=== PATIENT | female | born 1965 | race Caucasian/White ===

== ENCOUNTER → 2019-07-03 | Outpatient (CLI) | payer MEDICARE, OTHER | LOC: WOUNDCARE 08:05 | PROVIDERS: ATTEND Nurse Practitioner | DX: E11.622 Type 2 diabetes mellitus with other skin ulcer (principal); L97.222 Non-pressure chronic ulcer of left calf with fat layer exposed; I87.2 Venous insufficiency (chronic) (peripheral); Z87.09 Personal history of other diseases of the respiratory system; Z87.39 Personal history of other diseases of the musculoskeletal system and connective tissue | CPT/HCPCS: 99204 ==

== ENCOUNTER → 2019-07-10 | Outpatient (CLI) | payer MEDICARE, OTHER | LOC: WOUNDCARE 08:36 | PROVIDERS: ATTEND Nurse Practitioner | DX: L97.222 Non-pressure chronic ulcer of left calf with fat layer exposed (principal); E11.622 Type 2 diabetes mellitus with other skin ulcer; I87.2 Venous insufficiency (chronic) (peripheral); E11.52 Type 2 diabetes mellitus with diabetic peripheral angiopathy with gangrene; I96 Gangrene, not elsewhere classified | CPT/HCPCS: 11042 ==

== ENCOUNTER → 2019-07-19 | Outpatient (CLI) | payer MEDICARE, OTHER | LOC: WOUNDCARE 09:50 | PROVIDERS: ATTEND Nurse Practitioner | DX: L97.222 Non-pressure chronic ulcer of left calf with fat layer exposed (principal); E11.622 Type 2 diabetes mellitus with other skin ulcer; E11.52 Type 2 diabetes mellitus with diabetic peripheral angiopathy with gangrene; I96 Gangrene, not elsewhere classified; I87.2 Venous insufficiency (chronic) (peripheral) | CPT/HCPCS: 11042 ==

== ENCOUNTER → 2019-07-26 | Outpatient (CLI) | payer MEDICARE, OTHER | LOC: WOUNDCARE 09:24 | PROVIDERS: ATTEND Nurse Practitioner | DX: E11.622 Type 2 diabetes mellitus with other skin ulcer (principal); E11.52 Type 2 diabetes mellitus with diabetic peripheral angiopathy with gangrene; L97.222 Non-pressure chronic ulcer of left calf with fat layer exposed; I96 Gangrene, not elsewhere classified; I87.2 Venous insufficiency (chronic) (peripheral) | CPT/HCPCS: 29581 ==

== ENCOUNTER → 2019-08-02 | Outpatient (CLI) | payer MEDICARE, OTHER | LOC: WOUNDCARE 07:55 | PROVIDERS: ATTEND Nurse Practitioner | DX: E11.622 Type 2 diabetes mellitus with other skin ulcer (principal); L97.222 Non-pressure chronic ulcer of left calf with fat layer exposed; I87.2 Venous insufficiency (chronic) (peripheral); E11.52 Type 2 diabetes mellitus with diabetic peripheral angiopathy with gangrene; I96 Gangrene, not elsewhere classified | CPT/HCPCS: 29581 ==

== ENCOUNTER → 2019-08-09 | Outpatient (CLI) | payer MEDICARE, OTHER | LOC: WOUNDCARE 08:00 | PROVIDERS: ATTEND Nurse Practitioner | DX: E11.622 Type 2 diabetes mellitus with other skin ulcer (principal); L97.222 Non-pressure chronic ulcer of left calf with fat layer exposed; I87.2 Venous insufficiency (chronic) (peripheral) | CPT/HCPCS: 99212 ==

== ENCOUNTER → 2019-08-16 | Outpatient (CLI) | payer MEDICARE, OTHER | LOC: WOUNDCARE 08:05 | PROVIDERS: ATTEND Surgery | DX: E11.622 Type 2 diabetes mellitus with other skin ulcer (principal); L97.222 Non-pressure chronic ulcer of left calf with fat layer exposed; I87.2 Venous insufficiency (chronic) (peripheral) | CPT/HCPCS: 99212 ==

== ENCOUNTER → 2019-09-04 | Outpatient (CLI) | payer MEDICARE, OTHER | LOC: WOUNDCARE 10:01 | PROVIDERS: ATTEND Nurse Practitioner | DX: E11.622 Type 2 diabetes mellitus with other skin ulcer (principal); E11.52 Type 2 diabetes mellitus with diabetic peripheral angiopathy with gangrene; I96 Gangrene, not elsewhere classified; L97.222 Non-pressure chronic ulcer of left calf with fat layer exposed; I87.2 Venous insufficiency (chronic) (peripheral) | CPT/HCPCS: 99212 ==

== ENCOUNTER → 2019-09-11 | Outpatient (CLI) | payer MEDICARE, OTHER | LOC: WOUNDCARE 10:36 | PROVIDERS: ATTEND Nurse Practitioner | DX: E11.622 Type 2 diabetes mellitus with other skin ulcer (principal); L97.222 Non-pressure chronic ulcer of left calf with fat layer exposed; I87.2 Venous insufficiency (chronic) (peripheral); E11.52 Type 2 diabetes mellitus with diabetic peripheral angiopathy with gangrene | CPT/HCPCS: 99213 ==

== ENCOUNTER → 2019-09-18 | Outpatient (CLI) | payer MEDICARE, OTHER | LOC: WOUNDCARE 10:17 | PROVIDERS: ATTEND Nurse Practitioner | DX: E11.622 Type 2 diabetes mellitus with other skin ulcer (principal); L97.222 Non-pressure chronic ulcer of left calf with fat layer exposed; I87.2 Venous insufficiency (chronic) (peripheral) | CPT/HCPCS: 99212 ==

== ENCOUNTER → 2020-01-09 | Outpatient (CLI) | payer MEDICARE, OTHER | LOC: WOUNDCARE 08:06 | PROVIDERS: ATTEND Orthopaedic Surgery Hand Surgery | DX: E11.622 Type 2 diabetes mellitus with other skin ulcer (principal); E11.65 Type 2 diabetes mellitus with hyperglycemia; L97.212 Non-pressure chronic ulcer of right calf with fat layer exposed; L97.221 Non-pressure chronic ulcer of left calf limited to breakdown of skin; I87.311 Chronic venous hypertension (idiopathic) with ulcer of right lower extremity; I87.312 Chronic venous hypertension (idiopathic) with ulcer of left lower extremity; J44.9 Chronic obstructive pulmonary disease, unspecified; Z79.52 Long term (current) use of systemic steroids | CPT/HCPCS: 11042 ==

== ENCOUNTER → 2020-01-16 | Outpatient (CLI) | payer MEDICARE, OTHER | LOC: WOUNDCARE 08:09 | PROVIDERS: ATTEND Orthopaedic Surgery Hand Surgery | DX: L97.212 Non-pressure chronic ulcer of right calf with fat layer exposed (principal); L97.222 Non-pressure chronic ulcer of left calf with fat layer exposed; I87.333 Chronic venous hypertension (idiopathic) with ulcer and inflammation of bilateral lower extremity; E11.621 Type 2 diabetes mellitus with foot ulcer; E11.52 Type 2 diabetes mellitus with diabetic peripheral angiopathy with gangrene; J44.9 Chronic obstructive pulmonary disease, unspecified; E11.65 Type 2 diabetes mellitus with hyperglycemia; Z79.52 Long term (current) use of systemic steroids | CPT/HCPCS: 11042; 87070; 87077; 87186; 87205 ==

== ENCOUNTER → 2020-01-23 | Outpatient (CLI) | payer MEDICARE, OTHER | LOC: WOUNDCARE 09:38 | PROVIDERS: ATTEND Surgery | DX: L97.212 Non-pressure chronic ulcer of right calf with fat layer exposed (principal); L97.222 Non-pressure chronic ulcer of left calf with fat layer exposed; I87.333 Chronic venous hypertension (idiopathic) with ulcer and inflammation of bilateral lower extremity; E11.622 Type 2 diabetes mellitus with other skin ulcer; J44.9 Chronic obstructive pulmonary disease, unspecified; E11.52 Type 2 diabetes mellitus with diabetic peripheral angiopathy with gangrene; Z79.52 Long term (current) use of systemic steroids | CPT/HCPCS: 11042 ==

== ENCOUNTER → 2020-01-30 | Outpatient (CLI) | payer MEDICARE, OTHER | LOC: WOUNDCARE 09:37 | PROVIDERS: ATTEND Surgery | DX: L97.212 Non-pressure chronic ulcer of right calf with fat layer exposed (principal); I87.331 Chronic venous hypertension (idiopathic) with ulcer and inflammation of right lower extremity; E11.622 Type 2 diabetes mellitus with other skin ulcer; J44.9 Chronic obstructive pulmonary disease, unspecified; E11.52 Type 2 diabetes mellitus with diabetic peripheral angiopathy with gangrene; Z79.52 Long term (current) use of systemic steroids | CPT/HCPCS: 11042 ==

== ENCOUNTER → 2020-02-06 | Outpatient (CLI) | payer MEDICARE, OTHER ==
[~2020-02-06] VITALS: Ht 157 cm; Wt 88.0 kg
[~2020-02-06] MED LIST: CATHETER FLUSH 10 ML SYR IV PRN; REGADENOSON 0.4 MG/5 ML SYR (LEXISCAN) IV ONE
--- NOTE | 2020-02-06 15:33 | STRESS TEST ---
DATE OF SERVICE: 02/06/2020 LEXISCAN MYOVIEW STRESS TEST REPORT REFERRING PHYSICIAN: Dr. Ramos. Baseline heart rate is 77, baseline blood pressure 109/72. Baseline EKG is sinus rhythm with no ischemic changes. In summary, the patient was injected with 10.2 mCi of technetium-99 Myoview and the resting images were obtained. Then, the patient received 0.4 mg of Lexiscan followed by 32.5 mCi of technetium-99 Myoview. Throughout the test, there were no EKG changes. The resting and stress images were reviewed and compared in the short axis, horizontal long axis, and vertical long axis views. Review of the images showed breast attenuation with mild decreased uptake involving the mid anterior wall and anterolateral wall with mild reversibility. SSS is 6, SDS 6, TID value 0.88. On the gated images, the left ventricle appeared to be normal size with normal contractility. Calculated ejection fraction 62%. CONCLUSION: 1. The patient tolerated Lexiscan well. 2. Breast attenuation with mild decreased uptake at the mid anterior wall and anterolateral wall with mild reversibility, no significant ischemia was noted. 3. Normal left ventricular size with normal contractility. Calculated ejection fraction 62%. Job ID: [id number] DocumentID: [id number] Dictated Date: 02/06/2020 14:29:37 Pecan Cleaner Date: 02/06/2020 15:32:47 Dictated By: MARTIR BURTON MD
== END ==
LOC: CARD 08:35
PROVIDERS: ATTEND Internal Medicine Cardiovascular Disease
DX: R07.9 Chest pain, unspecified (principal); I10 Essential (primary) hypertension; E78.2 Mixed hyperlipidemia; E11.42 Type 2 diabetes mellitus with diabetic polyneuropathy
CPT/HCPCS: 78452; 93017; 93306

== ENCOUNTER → 2020-02-06 | Outpatient (CLI) | payer MEDICARE, OTHER | LOC: WOUNDCARE 11:28 | PROVIDERS: ATTEND Surgery | DX: E11.622 Type 2 diabetes mellitus with other skin ulcer (principal); L97.212 Non-pressure chronic ulcer of right calf with fat layer exposed; I87.333 Chronic venous hypertension (idiopathic) with ulcer and inflammation of bilateral lower extremity; J44.9 Chronic obstructive pulmonary disease, unspecified; Z79.52 Long term (current) use of systemic steroids | CPT/HCPCS: 99212 ==

== ENCOUNTER → 2020-04-15 | Outpatient (CLI) | payer MEDICARE, OTHER | LOC: WOUNDCARE 13:16 | PROVIDERS: ATTEND Surgery | DX: E11.622 Type 2 diabetes mellitus with other skin ulcer (principal); L97.222 Non-pressure chronic ulcer of left calf with fat layer exposed; L95.8 Other vasculitis limited to the skin; E11.65 Type 2 diabetes mellitus with hyperglycemia; I87.332 Chronic venous hypertension (idiopathic) with ulcer and inflammation of left lower extremity; J44.9 Chronic obstructive pulmonary disease, unspecified; G47.30 Sleep apnea, unspecified; E11.40 Type 2 diabetes mellitus with diabetic neuropathy, unspecified; M17.11 Unilateral primary osteoarthritis, right knee; Z88.0 Allergy status to penicillin; Z88.5 Allergy status to narcotic agent; Z91.048 Other nonmedicinal substance allergy status; Z88.8 Allergy status to other drugs, medicaments and biological substances; Z87.891 Personal history of nicotine dependence; Z79.4 Long term (current) use of insulin | CPT/HCPCS: 99214 ==

== ENCOUNTER → 2020-04-22 | Outpatient (CLI) | payer MEDICARE, OTHER | LOC: WOUNDCARE 08:17 | PROVIDERS: ATTEND Surgery | DX: L95.8 Other vasculitis limited to the skin (principal); L97.222 Non-pressure chronic ulcer of left calf with fat layer exposed; E11.622 Type 2 diabetes mellitus with other skin ulcer; E11.65 Type 2 diabetes mellitus with hyperglycemia; I87.332 Chronic venous hypertension (idiopathic) with ulcer and inflammation of left lower extremity; J44.9 Chronic obstructive pulmonary disease, unspecified; E11.52 Type 2 diabetes mellitus with diabetic peripheral angiopathy with gangrene | CPT/HCPCS: 11042 ==

== ENCOUNTER → 2020-04-29 | Outpatient (CLI) | payer MEDICARE, OTHER | LOC: WOUNDCARE 09:00 | PROVIDERS: ATTEND Surgery | DX: L97.222 Non-pressure chronic ulcer of left calf with fat layer exposed (principal); L95.8 Other vasculitis limited to the skin; E11.622 Type 2 diabetes mellitus with other skin ulcer; E11.65 Type 2 diabetes mellitus with hyperglycemia; E11.52 Type 2 diabetes mellitus with diabetic peripheral angiopathy with gangrene; I87.332 Chronic venous hypertension (idiopathic) with ulcer and inflammation of left lower extremity; J44.9 Chronic obstructive pulmonary disease, unspecified | CPT/HCPCS: 11042 ==

== ENCOUNTER → 2020-05-05 | Outpatient (CLI) | payer MEDICARE, OTHER | LOC: WOUNDCARE 08:30 | PROVIDERS: ATTEND Surgery | DX: E11.622 Type 2 diabetes mellitus with other skin ulcer (principal); E11.52 Type 2 diabetes mellitus with diabetic peripheral angiopathy with gangrene; E11.65 Type 2 diabetes mellitus with hyperglycemia; I87.332 Chronic venous hypertension (idiopathic) with ulcer and inflammation of left lower extremity; I96 Gangrene, not elsewhere classified; L97.222 Non-pressure chronic ulcer of left calf with fat layer exposed; L95.8 Other vasculitis limited to the skin; J44.9 Chronic obstructive pulmonary disease, unspecified | CPT/HCPCS: 11042; A6260 ==

== ENCOUNTER → 2020-05-15 | Outpatient (CLI) | payer MEDICARE, OTHER | LOC: WOUNDCARE 10:06 | PROVIDERS: ATTEND Surgery | DX: E11.622 Type 2 diabetes mellitus with other skin ulcer (principal); E11.65 Type 2 diabetes mellitus with hyperglycemia; E11.52 Type 2 diabetes mellitus with diabetic peripheral angiopathy with gangrene; I96 Gangrene, not elsewhere classified; L97.222 Non-pressure chronic ulcer of left calf with fat layer exposed; I87.332 Chronic venous hypertension (idiopathic) with ulcer and inflammation of left lower extremity; L95.8 Other vasculitis limited to the skin | CPT/HCPCS: 11042 ==

== ENCOUNTER → 2020-05-21 | Outpatient (CLI) | payer MEDICARE, OTHER | LOC: WOUNDCARE 12:47 | PROVIDERS: ATTEND Surgery | DX: L97.222 Non-pressure chronic ulcer of left calf with fat layer exposed (principal); L95.8 Other vasculitis limited to the skin; E11.622 Type 2 diabetes mellitus with other skin ulcer; E11.65 Type 2 diabetes mellitus with hyperglycemia; E11.52 Type 2 diabetes mellitus with diabetic peripheral angiopathy with gangrene; J44.9 Chronic obstructive pulmonary disease, unspecified; I87.332 Chronic venous hypertension (idiopathic) with ulcer and inflammation of left lower extremity | CPT/HCPCS: 11042; A4649 ==

== ENCOUNTER → 2020-05-26 | Outpatient (CLI) | payer MEDICARE, OTHER | LOC: WOUNDCARE 08:06 | PROVIDERS: ATTEND Surgery | DX: L97.222 Non-pressure chronic ulcer of left calf with fat layer exposed (principal); E11.622 Type 2 diabetes mellitus with other skin ulcer; E11.65 Type 2 diabetes mellitus with hyperglycemia; I87.332 Chronic venous hypertension (idiopathic) with ulcer and inflammation of left lower extremity; J44.9 Chronic obstructive pulmonary disease, unspecified; L95.8 Other vasculitis limited to the skin; E11.52 Type 2 diabetes mellitus with diabetic peripheral angiopathy with gangrene | CPT/HCPCS: 11042 ==

== ENCOUNTER → 2020-06-02 | Outpatient (CLI) | payer MEDICARE, OTHER | LOC: WOUNDCARE 08:10 | PROVIDERS: ATTEND Surgery | DX: E11.621 Type 2 diabetes mellitus with foot ulcer (principal); E11.52 Type 2 diabetes mellitus with diabetic peripheral angiopathy with gangrene; E11.622 Type 2 diabetes mellitus with other skin ulcer; E11.65 Type 2 diabetes mellitus with hyperglycemia; I87.332 Chronic venous hypertension (idiopathic) with ulcer and inflammation of left lower extremity; J44.9 Chronic obstructive pulmonary disease, unspecified; L97.222 Non-pressure chronic ulcer of left calf with fat layer exposed; L97.522 Non-pressure chronic ulcer of other part of left foot with fat layer exposed; L95.8 Other vasculitis limited to the skin | CPT/HCPCS: 11042; A6196 ==

== ENCOUNTER → 2020-06-09 | Outpatient (CLI) | payer MEDICARE, OTHER | LOC: WOUNDCARE 08:07 | PROVIDERS: ATTEND Surgery | DX: E11.621 Type 2 diabetes mellitus with foot ulcer (principal); E11.622 Type 2 diabetes mellitus with other skin ulcer; E11.65 Type 2 diabetes mellitus with hyperglycemia; E11.52 Type 2 diabetes mellitus with diabetic peripheral angiopathy with gangrene; I96 Gangrene, not elsewhere classified; L97.522 Non-pressure chronic ulcer of other part of left foot with fat layer exposed; L97.222 Non-pressure chronic ulcer of left calf with fat layer exposed; I87.332 Chronic venous hypertension (idiopathic) with ulcer and inflammation of left lower extremity; L95.8 Other vasculitis limited to the skin; J44.9 Chronic obstructive pulmonary disease, unspecified | CPT/HCPCS: 11042 ==

== ENCOUNTER → 2020-06-17 | Outpatient (CLI) | payer MEDICARE, OTHER | LOC: WOUNDCARE 08:30 | PROVIDERS: ATTEND Surgery | DX: L97.522 Non-pressure chronic ulcer of other part of left foot with fat layer exposed (principal); E11.621 Type 2 diabetes mellitus with foot ulcer; E11.52 Type 2 diabetes mellitus with diabetic peripheral angiopathy with gangrene; L95.9 Vasculitis limited to the skin, unspecified; L97.222 Non-pressure chronic ulcer of left calf with fat layer exposed; E11.622 Type 2 diabetes mellitus with other skin ulcer; E11.65 Type 2 diabetes mellitus with hyperglycemia; I87.322 Chronic venous hypertension (idiopathic) with inflammation of left lower extremity; J44.9 Chronic obstructive pulmonary disease, unspecified | CPT/HCPCS: 11042; G0463 ==

== ENCOUNTER → 2020-06-24 | Outpatient (CLI) | payer MEDICARE, OTHER ==
--- NOTE | 2020-06-24 15:07 | Diagnostic Imaging Report ---
INDICATION: Abscess right foot. TIME OF EXAM: 11:54 AM. COMPARISON: No prior studies are available for comparison. FINDINGS: Bunion deformity of the great toe is noted. There are severe degenerative changes at the tarsometatarsal joints. There appears to be some fragmentation with bony destructive changes involving the medial, middle, and lateral cuneiforms. No discrete fracture is identified. There is abnormal widening of the 5th MTP joint. There may be post surgical changes of partial resection of the distal 5th metatarsal. No soft tissue gas is identified. A chronic appearing deformity of the proximal phalanx of the 3rd toe is noted. IMPRESSION: Significant chronic changes to the right foot, particularly the tarsometatarsal joints. This could be owing to neuropathic changes. No soft tissue gas is identified. Dictated by: Dictated on workstation # [id number]
== END ==
LOC: RAD 11:16
PROVIDERS: ATTEND Surgery
DX: M65.071 Abscess of tendon sheath, right ankle and foot (principal); L97.415 Non-pressure chronic ulcer of right heel and midfoot with muscle involvement without evidence of necrosis; L97.522 Non-pressure chronic ulcer of other part of left foot with fat layer exposed; E11.621 Type 2 diabetes mellitus with foot ulcer; L95.8 Other vasculitis limited to the skin; L97.222 Non-pressure chronic ulcer of left calf with fat layer exposed; E11.622 Type 2 diabetes mellitus with other skin ulcer; E11.65 Type 2 diabetes mellitus with hyperglycemia; I87.332 Chronic venous hypertension (idiopathic) with ulcer and inflammation of left lower extremity; J44.9 Chronic obstructive pulmonary disease, unspecified; I70.234 Atherosclerosis of native arteries of right leg with ulceration of heel and midfoot
CPT/HCPCS: 73630

== ENCOUNTER → 2020-06-24 | Outpatient (CLI) | payer MEDICARE, OTHER | LOC: WOUNDCARE 08:52 | PROVIDERS: ATTEND Surgery | DX: E11.621 Type 2 diabetes mellitus with foot ulcer (principal); E11.622 Type 2 diabetes mellitus with other skin ulcer; L97.222 Non-pressure chronic ulcer of left calf with fat layer exposed; E11.65 Type 2 diabetes mellitus with hyperglycemia; I87.332 Chronic venous hypertension (idiopathic) with ulcer and inflammation of left lower extremity; L97.415 Non-pressure chronic ulcer of right heel and midfoot with muscle involvement without evidence of necrosis; L97.521 Non-pressure chronic ulcer of other part of left foot limited to breakdown of skin; L97.221 Non-pressure chronic ulcer of left calf limited to breakdown of skin; J44.9 Chronic obstructive pulmonary disease, unspecified; L95.9 Vasculitis limited to the skin, unspecified; M65.071 Abscess of tendon sheath, right ankle and foot; Z87.891 Personal history of nicotine dependence; G47.30 Sleep apnea, unspecified; M17.11 Unilateral primary osteoarthritis, right knee; Z79.4 Long term (current) use of insulin; Z96.659 Presence of unspecified artificial knee joint | CPT/HCPCS: 10060; 11042; 87070; 87075; 87077; 87186; 87205; 97597; G0463 ==

== ENCOUNTER → 2020-07-01 | Outpatient (CLI) | payer MEDICARE, OTHER | LOC: WOUNDCARE 09:11 | PROVIDERS: ATTEND Surgery | DX: E11.621 Type 2 diabetes mellitus with foot ulcer (principal); E11.52 Type 2 diabetes mellitus with diabetic peripheral angiopathy with gangrene; E11.622 Type 2 diabetes mellitus with other skin ulcer; E11.65 Type 2 diabetes mellitus with hyperglycemia; L97.522 Non-pressure chronic ulcer of other part of left foot with fat layer exposed; I96 Gangrene, not elsewhere classified; L97.413 Non-pressure chronic ulcer of right heel and midfoot with necrosis of muscle; L97.222 Non-pressure chronic ulcer of left calf with fat layer exposed; M65.071 Abscess of tendon sheath, right ankle and foot; L95.8 Other vasculitis limited to the skin; I87.332 Chronic venous hypertension (idiopathic) with ulcer and inflammation of left lower extremity; J44.9 Chronic obstructive pulmonary disease, unspecified | CPT/HCPCS: 11042; A6196; G0463 ==

== ENCOUNTER → 2020-07-08 | Outpatient (CLI) | payer MEDICARE, OTHER | LOC: WOUNDCARE 08:44 | PROVIDERS: ATTEND Surgery | DX: M65.071 Abscess of tendon sheath, right ankle and foot (principal); L97.413 Non-pressure chronic ulcer of right heel and midfoot with necrosis of muscle; E11.621 Type 2 diabetes mellitus with foot ulcer; L95.8 Other vasculitis limited to the skin; I87.322 Chronic venous hypertension (idiopathic) with inflammation of left lower extremity; J44.9 Chronic obstructive pulmonary disease, unspecified; E11.52 Type 2 diabetes mellitus with diabetic peripheral angiopathy with gangrene | CPT/HCPCS: 11042; G0463 ==

== ENCOUNTER → 2020-07-15 | Outpatient (CLI) | payer MEDICARE, OTHER | LOC: WOUNDCARE 08:39 | PROVIDERS: ATTEND Surgery | DX: E11.621 Type 2 diabetes mellitus with foot ulcer (principal); L97.413 Non-pressure chronic ulcer of right heel and midfoot with necrosis of muscle; L97.522 Non-pressure chronic ulcer of other part of left foot with fat layer exposed; L95.8 Other vasculitis limited to the skin; I87.322 Chronic venous hypertension (idiopathic) with inflammation of left lower extremity; L97.221 Non-pressure chronic ulcer of left calf limited to breakdown of skin; M65.071 Abscess of tendon sheath, right ankle and foot; J44.9 Chronic obstructive pulmonary disease, unspecified; L03.116 Cellulitis of left lower limb; E11.52 Type 2 diabetes mellitus with diabetic peripheral angiopathy with gangrene | CPT/HCPCS: 11042; 11043; 97597; G0463 ==

== ENCOUNTER 2020-08-26 11:43 | Inpatient (IN) | payer MEDICARE, OTHER ==
[~2020-08-26] VITALS: Ht 160 cm; Wt 72.0 kg
[2020-08-26] MEDS ORDERED: MELATONIN 3 MG TABLET PO PRN (12:45)
[2020-08-26] MEDS ORDERED: BISACODYL 10 MG SUPP (DULCOLAX) PR PRN (12:45)
[2020-08-26] MEDS ORDERED: LACTULOSE SYRUP 10GM/15ML (ENULOSE) 30ML UDC PO PRN (12:45)
[2020-08-26] MEDS ORDERED: DOCUSATE SODIUM 100 MG (COLACE) CAP PO PRN (12:45)
[2020-08-26] MEDS ORDERED: guaiFENesin/CODEINE (ROBITUSSIN AC) 10ML UDC PO PRN (12:45)
[2020-08-26] MEDS ORDERED: FLEET ENEMA ADULT 1 EA BTL PR PRN (12:45)
[2020-08-26] MEDS ORDERED: ACETAMINOPHEN 500 MG TAB (TYLENOL) PO PRN (12:45)
[2020-08-26] MEDS ORDERED: LOPERAMIDE 2 MG (IMODIUM) TABLET PO PRN ×2 (12:45→17:00)
[2020-08-26] MEDS ORDERED: CALCIUM CARBONATE 500 MG (TUMS) TAB.CHEW PO PRN (12:45)
[2020-08-26] MEDS ORDERED: ALPRAZolam 0.25 MG (XANAX) TAB PO PRN (12:45)
[2020-08-26] MEDS ORDERED: diphenhydrAMINE 25 MG TAB (BENADRYL) PO PRN (12:45)
--- NOTE | 2020-08-26 14:00 | NUR ---
Nika Cole admitted to room , with an admitting diagnosis of Disuse Myopathy, on 08/26/2020 from [place] via private vehicle, accompanied by staff.NIKA COLE introduced to surroundings, call light, bed controls, phone, TV, temperature control, lights, meal times, smoking policy, visitor policy, side rail policy, bathrooms and showers. Patient Rights given to patient in the handbook.NIKA COLE verbalizes understanding that [facility] is not responsible for the loss or damage to any personal effects or valuables that are kept in the patients possession during their hospitalization. The following Patient Care Plans were discussed with the patient: Discharge Planning, Disuse Myopathy, risk for falls. NIKA COLE verbalizes understanding of Interdisciplinary Patient Education. Patient and/or family were informed about the Rapid Response Team and its purpose. Patient received Patient Rights Booklet, which includes Privacy Act Statement and Data Collection Information Summary.
--- NOTE | 2020-08-26 14:50 | PM&R Post Admission Assessment ---
PM&R HP Date of Visit: Aug 26, 2020 Time of Visit: 17:45 History of Present Illness CC: Discitis HPI: This is a 55yoWF clinic patient of Dr Ramos who presents to IRF in need of recovery and rehabilitation following a very long course in the hospital which started at [facility] then to [facility] then to [place]. PLOF was functioning independently living with her . She has struggled with chronic back pain but it worsened and eventually led to septic shock with MSSA with MEGAN suspicious for infective endocarditis and MRI revealed osteomyelitis L2-L3 and presumed source of right foot chronic diabetic wound managed by Dr Snyder. Severe nausea has limited her dietary consumption and delayed arrival to IRF by 1 day but improved with Compazine but Dr Eid was consulted in case nausea becomes a major issue and he can perform EGD and any other modality which could help her recovery. HPI: Patient is a 55yo female presenting to IRF from a 25-day stay at [facility] due to requiring IV antibiotics secondary to osteomyelitis and possible infective endocarditis. She was originally transferred to [facility] from [facility] on 07/18 due to sepsis with septic shock and was found to have infection with MSSA. A MEGAN was performed which was inconclusive but raised concerns for possible infective endocarditis. She c/o acute on chronic back pain and was eventually found to have osteomyelitis of L2-L3 with discitis on MRI. She was then transferred to [facility] to continue receiving IV antibiotics and for rehabilitation. She has been completing her course of cefazolin and rifampin. Prior to admission she lived independently at home with her spouse. She was independent with ADLs including bed mobility, transfers, walking, and household functions. Past Medical History: COPD IDDM Atrial fibrillation s/p ablation 2000 HTN HLD Migraines MARY ANN uses CPAP Asthma Arthritis Anxiety Depression GERD Hx of L leg DVT Surgical History: Appendectomy Bladder cyst removal Cardiac ablation Cholecystectomy Right breast needle biopsy Umbilical hernia repair Total abdominal hysterectomy Left knee arthroplasty Right lung biopsy Issac fundoplication Tubal ligation Bunionectomy Social History: , lives with spouse Former smoker; 35 pack year hx, quit 3-5 years ago Denies alcohol use Allergies: Clindamycin, PCN, gabapentin, hydromorphone, moxifloxacin, ofloxacin, metformin, morphine, topiramate, Wellbutrin, zileuton Medications: Albuterol-ipratropium 2.5-0.5mg/3mL - 3mL q4R Alendronate 70mg TAB x1 tab MON Aripiprazole 5mg TAB x1 tab HS Brimonidine 0.2% SOLN 0.1mL daily Budesonide 0.5mg/2mL INH - 2mL BID Calcium carbonate 600mg TAB x2 tab daily Clobetasol 0.05% cream 30g x1 application HS Diclofenac topical 1% gel 1 application BID Fenofibrate 54mg TAB x1 daily Fentanyl patch 50mcg/hr - Q72H Fluticasone nasal 50mcg/INH - BID Furosemide 20mg TAB x2 daily Insulin [id number] units/mL INJ 14 units ACHS Lactobacillus acidophilus oral TAB 2 units TID LANTUS INSULIN 100 units/mL - 5 units HS Latanoprost 0.005% opthalmic SOLN - 0.125mL HS Lisinopril 5mg TAB x1 daily Magnesium oxide 400mg TAB x2 TID Meloxicam 7.5mg TAB x2 daily Mirtazipine 15mg TAB x1 tab HS Montelukast 10mg TAB x1 tab HS Multivitamin with minerals TAB x1 units daily Pantoprazole ER 40mg TAB x1 tab daily Paroxetine 10mg TAB x4 daily Pentoxifylline ER 400mg TAB x1 tab TID Potassium chloride 10mEq tab x3 tab daily Prednisone 10mg TAB x3 tab daily Pregabalin 100mg CAP x1 cap BID Spironolactone 25mg TAB x2 tab BID Tiotropium inhalation 18mcg CAP x1 daily Topiramate 25mg TAB x2 tab daily Vitamin D 1000 units TAB x2 tab daily Acetaminophen 325mg TAB x2 tab Q6H PRN Alprazolam 0.5mg TAB x2 tab QID PRN Hydrocodone-acetaminophen 10mg-325mg TAB x1 tab Q4H PRN Loperamide 2mg CAP x1 cap Q4H PRN Ondansetron 4mg TAB x1 tab Q6H PRN Quetiapine 25mg TAB x1 tab BID PRN Physical Exam: General: WD/WN, no acute distress HEENT: normocephalic, atraumatic, EOMI Heart: RRR, S1 S2 normal Lungs: CTAB, no accessory muscle use Abdomen: soft, nontender, nondistended Neuro/Psych: alert, oriented x3, normal mood/affect Assessment: Disuse myopathy Acute on chronic back pain Arthritis HTN HLD T2DM COPD REHAB/MEDICAL ASSESSMENT AND PLAN: ETIOLOGIC DIAGNOSIS: Osteomyelitis of L2-L3 The comorbidities that impact the patients function and/or functional outcome by: requiring IV antibiotics, chronic back pain Rehab treatment will consist of: PT, OT will focus on regaining activity tolerance, functional strength, safety, balance, gait, transfer, bed mobility BARRIERS TO DISCHARGE: Chronic back pain, requiring IV antibiotics ESTIMATED LOS: 14 DISPOSITION: Home PROGNOSIS: Fair REHABILITATION GOALS: 1. PT OT will focus on regaining strength and ambulatory ability in order to return home to live independently Verification and Attestation Supervisory-Addendum Brief VINICIO SUMNER,POOJA STUDENT Past [id number] Hx Past Med/Social Hx: Reviewed Nursing Past Med/Soc Hx, Reviewed and Corrections made Patient Social History Marrital Status: Employed/Student: unemployed Alcohol Use: Denies Use Smoking Status: Never a Smoker Recent Foreign Travel: No Contact w/other who traveled: No Past Medical History Respiratory: Sleep Apnea hypoxia O2 dependent Cardiac: Hypertension Musculoskeletal: Arthritis, Chronic Back Pain Endocrine: Diabetes, Insulin dep PM&R Allergy/Meds/Data Review Allergies Coded Allergies: Penicillins (Unverified Allergy, Unknown, 02/06/20) Tetracyclines (Unverified Allergy, Unknown, 02/06/20) adhesive tape (Unverified Allergy, Unknown, 02/06/20) gabapentin (Unverified Allergy, Unknown, 02/06/20) morphine (Unverified Allergy, Unknown, PT TAKES LORTAB AT HOME, 08/26/20) Home Medications Scheduled Alendronate Sodium (Alendronate Sodium), 70 MG PO DAILY, (Reported) Aripiprazole (Aripiprazole), 5 MG PO HS, (Reported) Brimonidine Tartrate (Alphagan P), 1 DROP OU DAILY, (Reported) Budesonide (Pulmicort), 0.5 MG IH BID, (Reported) Calcium Carbonate (Calcium Carbonate), 1,200 MG PO DAILY, (Reported) Calcium Carbonate (Antacid Maximum Strength), 400 MG PO DAILY, (Reported) Cefazolin Sodium (Cefazolin Sodium), 2 GM IV Q8H, (Reported) Cetirizine HCl (Zyrtec), 10 MG PO DAILY, (Reported) Cholecalciferol (Vitamin D3) (Vitamin D3), 50 MCG PO DAILY, (Reported) Clobetasol Propionate (Clobetasol Propionate), 1 APPFUL TP HS, (Reported) Diclofenac Sodium (Voltaren Arthritis Pain), 1 APPLIC TP BID, (Reported) Enoxaparin Sodium (Lovenox), 40 MG SQ DAILY, (Reported) Fenofibrate (Fenofibrate), 54 MG PO DAILY, (Reported) Fentanyl (Fentanyl Patch 50 MCG), 50 MCG TD Q72H, (Reported) Fluconazole (Fluconazole), 100 MG PO Q72H, (Reported) Fluticasone Propionate (Flonase Allergy Relief), 2 SPRAY NS BID, (Reported) Furosemide (Furosemide), 40 MG PO DAILY, (Reported) Insulin Glargine,Hum.rec.anlog (Lantus), 5 UNIT SQ HS, (Reported) Insulin Lispro (Insulin Lispro), 0-14 UNIT SQ ACHS, (Reported) Ipratropium/Albuterol Sulfate (Iprat-Albut 0.5-3(2.5) mg/3 ml), 3 ML IH BID, (Reported) Lactobacillus Acidophilus/Pect (Acidophilus-Pectin Capsule), 2 EACH PO TID, (Reported) Latanoprost (Latanoprost), 1 DROP OU HS, (Reported) Lisinopril (Lisinopril), 5 MG PO DAILY, (Reported) Meloxicam (Meloxicam), 15 MG PO DAILY, (Reported) Mirtazapine (Mirtazapine), 15 MG PO HS, (Reported) Montelukast Sodium (Montelukast Sodium), 10 MG PO HS, (Reported) Multivits,Ca,Minerals/Iron/FA (Thera-M Tablet), 1 EACH PO DAILY, (Reported) Pantoprazole Sodium (Pantoprazole Sodium), 40 MG PO DAILY, (Reported) Paroxetine HCl (Paroxetine HCl), 40 MG PO 1000, (Reported) Pentoxifylline (Pentoxifylline), 400 MG PO TID, (Reported) Potassium Chloride (Klor-Con M20), 40 MEQ PO Q6H, (Reported) Prednisone (Prednisone), 20 MG PO DAILY, (Reported) Pregabalin (Lyrica), 100 MG PO BID, (Reported) Quetiapine Fumarate (Quetiapine Fumarate), 25 MG PO BID, (Reported) Rifampin (Rifampin), 300 MG PO Q8H, (Reported) Sodium Chloride (Saline Nasal [place]), 1 SPRAY NSEACH BID, (Reported) Spironolactone (Aldactone), 25 MG PO BID, (Reported) Tiotropium [place]ary (Spiriva), 1 INH IH DAILY, (Reported) Topiramate (Topamax), 50 MG PO DAILY, (Reported) Scheduled PRN Acetaminophen (Tylenol Arthritis), 650 MG PO Q6H PRN for PAIN-MILD (1-4) OR TEMPATURE, (Reported) Alprazolam (Alprazolam), 1 MG PO QID PRN for ANXIETY, (Reported) Alteplase (Cathflo Activase), 2 MG BC PRN PRN for CLOGGED PICC, (Reported) Dextrose 50 % in Water (Dextrose 50%-Water Syringe), 50 ML IV PRN PRN for BLOOD GLUCOSE LESS THEN 50, (Reported) Hydrocodone/Acetaminophen ([place] 10-325 Tablet), 1 TAB PO Q4H PRN for PAIN- SEVERE (8-10), (Reported) Ipratropium/Albuterol Sulfate (Iprat-Albut 0.5-3(2.5) mg/3 ml), 3 ML IH Q4H PRN for SHORTNESS OF BREATH, (Reported) Loperamide HCl (Loperamide), 2 MG PO Q4H PRN for LOOSE STOOLS, (Reported) Prochlorperazine Maleate (Compazine), 10 MG PO Q6H PRN for NAUSEA/VOMITING-1ST LINE, (Reported) Discontinued Medications Albuterol/Ipratropium (Combivent Respimat Inhal [place]), 2 PUFF IH BID Discontinued Reason: No Longer Taking Alendronate Sodium (Fosamax), 70 MG PO WEEK, (Reported) Discontinued Reason: Duplicate Order Aripiprazole (Abilify), 5 MG PO HS Discontinued Reason: Duplicate Order Brimonidine/Dorzolamide/Pf (Brimonidine 0.15%-Dorzolam 2%), 10 ML OP DAILY Discontinued Reason: Duplicate Order Budesonide (Budesonide), 0.5 MG IH BID Discontinued Reason: Duplicate Order Calcium Carbonate (Calcium), 600 MG PO DAILY Discontinued Reason: No Longer Taking Naproxen (Naproxen), 500 MG PO BID PRN for PAIN-MODERATE (5-7), (Reported) Discontinued Reason: No Longer Taking Ondansetron (Ondansetron Odt), 4 MG PO, (Reported) Discontinued Reason: No Longer Taking Current Medications Current Medications Reviewed Review of Systems Constitutional: see HPI, malaise, weakness EENTM: no symptoms reported Respiratory: no symptoms reported Cardiovascular: no symptoms reported Gastrointestinal: nausea Genitourinary: no symptoms reported Musculoskeletal: back pain Skin: no symptoms reported Psychiatric/Neurological: Anxiety, Depressed All Other Systems Reviewed Negative Unless Noted: Yes Physical Exam Physical Exam Vital Signs Capillary Refill : Height, Weight, BMI Height: '" Weight: lbs. oz. kg; 35.70 BMI Method: General Appearance: No Apparent Distress, WD/WN, Chronically ill, Obese Eyes: Bilateral Eye Normal Inspection, Bilateral Eye PERRL HEENT: PERRL/EOMI, Normal ENT Inspection, Pharynx Normal Neck: Full Range of Motion, Normal Inspection, Non Tender, Supple, Carotid Bruit Respiratory: Chest Non Tender, Lungs Clear, Normal Breath Sounds, No Accessory Muscle Use, No Respiratory Distress Cardiovascular: Regular Rate, Rhythm, No Edema, No Gallop, No JVD, No Murmur, Normal Peripheral Pulses Gastrointestinal: Normal Bowel Sounds, No Organomegaly, No Pulsatile Mass, Non Tender, Soft Back: Normal Inspection, No CVA Tenderness, Decreased Range of Motion Extremity: Normal Capillary Refill, Normal Inspection, Normal Range of Motion, Non Tender, No Calf Tenderness, No Pedal Edema Neurologic/Psychiatric: Alert, Oriented x3, No Motor/Sensory Deficits, Normal Mood/Affect, crop duster II-XII Norm as Tested, Abnormal Gait, Motor Weakness (generalized 3/5) Skin: Normal Color, Warm/Dry, Other (right DM foot wound) Lymphatic: No Adenopathy PM&R Medical Assessment & Plan REHAB/MEDICAL ASSESSMENT AND PLAN: REHAB IMPAIRMENT GROUP: Critical illness myopathy ETIOLOGIC DIAGNOSIS: Critical illness myopathy The comorbidities that impact the patients function and/or functional outcome by: chronica illness with multiple comorbidities will limit regaining profound capabilities but will focus instead on enough function to return home to live independently REHAB PLAN: The patient is being admitted to our comprehensive inpatient rehabilitation facility and can tolerate the intensity of service consisting of at least: 180 minutes of therapy a day, 5 out of 7 days a week Rehab treatment will consist of: PT OT will focus on regaining ADL function and increase ambulatory skills in order to return home to live independently The patient/family has a good understanding of our discharge process and will benefit from an interdisciplinary inpatient rehabilitation program. The patient has potential to make improvement and is in need of at least two of the following multidisciplinary therapies including but not limited to physical, occupational, speech, and prosthetics and orthotics. Additionally the patient will need services from respiratory, nutritional services, wound care, psychology, etc. (Customize this to each patient). Given the patients complex condition and risk of further medical complications, rehabilitation services cannot be safely or effectively provided at a lower level of care such as a fdc facility. BARRIERS TO DISCHARGE: Lives at home and alone during day ESTIMATED LOS: 10 days DISPOSITION: Home RELEVANT CHANGES SINCE PREADMISSION SCREENING: I have compared the patients medical and functional status at the time of the preadmission screening and there are: no changes PROGNOSIS: Fair REHABILITATION GOALS: 1. PT OT will focus on regaining ADL function and increase ambulatory skills in order to return home to live independently All the above goals were reviewed with the patient and he/she is in agreement. By signing this document, I acknowledge that I have personally performed a full physical examination on this patient within 24 hours of admission to this inpatient rehabilitation facility and have determined the patient to be able to tolerate the above course of treatment at an intensive level for a reasonable pe riod of time. I will be completing a detailed individualized Plan of Care for this patient by day #4 of the patients stay based upon the Preadmission Screen, the Post-Admission Evaluation, and the therapy evaluations. Admission Dx/Comorbidities: (1) Myopathy ICD Codes: G72.9 - Myopathy, unspecified (2) Diabetic foot ulcer ICD Codes: E11.621 - Type 2 diabetes mellitus with foot ulcer; L97.509 - Non- pressure chronic ulcer of other part of unspecified foot with unspecified severity (3) Diabetes ICD Codes: E11.9 - Type 2 diabetes mellitus without complications (4) Chronic pain ICD Codes: G89.29 - Other chronic pain (5) Nausea ICD Codes: R11.0 - Nausea (6) MARY ANN (obstructive sleep apnea) ICD Codes: G47.33 - Obstructive sleep apnea (adult) (pediatric) (7) Oxygen dependent ICD Codes: Z99.81 - Dependence on supplemental oxygen (8) Discitis ICD Codes: M46.40 - Discitis, unspecified, site unspecified Assessment/Plan Assessment and Plan Assess & Plan/Chief Complaint Assessment: Myopathy Discitis on Ancef until 09/03/20 DM Right DM foot ulcer HTN HLP O2 dependent MARY ANN PLan: DM management IRF protocol Pain management ЕЛЕНА CRUZ DO Aug 26, 2020 14:50
--- NOTE | 2020-08-26 14:59 | Progress Note ---
VINICIO SUMNER,MED STUDENT 08/26/20 1459: Progress Note HPI: Patient is a 55yo female presenting to IRF from a 25-day stay at [facility] due to requiring IV antibiotics secondary to osteomyelitis and possible infective endocarditis. She was originally transferred to [facility] from [facility] on 07/18 due to sepsis with septic shock and was found to have infection with MSSA. A MEGAN was performed which was inconclusive but raised concerns for possible infective endocarditis. She c/o acute on chronic back pain and was eventually found to have osteomyelitis of L2-L3 with discitis on MRI. She was then transferred to [facility] to continue receiving IV antibiotics and for rehabilitation. She has been completing her course of cefazolin and rifampin. Prior to admission she lived independently at home with her spouse. She was independent with ADLs including bed mobility, transfers, walking, and household functions. Past Medical History: COPD IDDM Atrial fibrillation s/p ablation 2000 HTN HLD Migraines MARY ANN uses CPAP Asthma Arthritis Anxiety Depression GERD Hx of L leg DVT Surgical History: Appendectomy Bladder cyst removal Cardiac ablation Cholecystectomy Right breast needle biopsy Umbilical hernia repair Total abdominal hysterectomy Left knee arthroplasty Right lung biopsy Issac fundoplication Tubal ligation Bunionectomy Social History: , lives with spouse Former smoker; 35 pack year hx, quit 3-5 years ago Denies alcohol use Allergies: Clindamycin, PCN, gabapentin, hydromorphone, moxifloxacin, ofloxacin, metformin, morphine, topiramate, Wellbutrin, zileuton Medications: Albuterol-ipratropium 2.5-0.5mg/3mL - 3mL q4R Alendronate 70mg TAB x1 tab MON Aripiprazole 5mg TAB x1 tab HS Brimonidine 0.2% SOLN 0.1mL daily Budesonide 0.5mg/2mL INH - 2mL BID Calcium carbonate 600mg TAB x2 tab daily Clobetasol 0.05% cream 30g x1 application HS Diclofenac topical 1% gel 1 application BID Fenofibrate 54mg TAB x1 daily Fentanyl patch 50mcg/hr - Q72H Fluticasone nasal 50mcg/INH - BID Furosemide 20mg TAB x2 daily Insulin units/mL INJ 14 units ACHS Lactobacillus acidophilus oral TAB 2 units TID LANTUS INSULIN 100 units/mL - 5 units HS Latanoprost 0.005% opthalmic SOLN - 0.125mL HS Lisinopril 5mg TAB x1 daily Magnesium oxide 400mg TAB x2 TID Meloxicam 7.5mg TAB x2 daily Mirtazipine 15mg TAB x1 tab HS Montelukast 10mg TAB x1 tab HS Multivitamin with minerals TAB x1 units daily Pantoprazole ER 40mg TAB x1 tab daily Paroxetine 10mg TAB x4 daily Pentoxifylline ER 400mg TAB x1 tab TID Potassium chloride 10mEq tab x3 tab daily Prednisone 10mg TAB x3 tab daily Pregabalin 100mg CAP x1 cap BID Spironolactone 25mg TAB x2 tab BID Tiotropium inhalation 18mcg CAP x1 daily Topiramate 25mg TAB x2 tab daily Vitamin D 1000 units TAB x2 tab daily Acetaminophen 325mg TAB x2 tab Q6H PRN Alprazolam 0.5mg TAB x2 tab QID PRN Hydrocodone-acetaminophen 10mg-325mg TAB x1 tab Q4H PRN Loperamide 2mg CAP x1 cap Q4H PRN Ondansetron 4mg TAB x1 tab Q6H PRN Quetiapine 25mg TAB x1 tab BID PRN Physical Exam: General: WD/WN, no acute distress HEENT: normocephalic, atraumatic, EOMI Heart: RRR, S1 S2 normal Lungs: CTAB, no accessory muscle use Abdomen: soft, nontender, nondistended Neuro/Psych: alert, oriented x3, normal mood/affect Assessment: Disuse myopathy Acute on chronic back pain Arthritis HTN HLD T2DM COPD REHAB/MEDICAL ASSESSMENT AND PLAN: ETIOLOGIC DIAGNOSIS: Osteomyelitis of L2-L3 The comorbidities that impact the patients function and/or functional outcome by: requiring IV antibiotics, chronic back pain Rehab treatment will consist of: PT, OT will focus on regaining activity tolerance, functional strength, safety, balance, gait, transfer, bed mobility BARRIERS TO DISCHARGE: Chronic back pain, requiring IV antibiotics ESTIMATED LOS: 14 DISPOSITION: Home PROGNOSIS: Fair REHABILITATION GOALS: 1. PT OT will focus on regaining strength and ambulatory ability in order to return home to live independently MARA CRUZ DO 08/26/202031: Supervisory-Addendum Brief Verification & Attestation Participated in pt care: history, MDM, physical Personally performed: exam, history, MDM, supervision of care Care discussed with: Medical Student Procedures: n/a Results interpretation: Verified all documentation Verification and Attestation of Medical Student E/M Service A medical student performed and documented this service in my presence. I reviewed and verified all information documented by the medical student and made modifications to such information, when appropriate. I personally performed the physical exam and medical decision making. Mara Cruz, Aug 26, 2020,20:32 VINICIO SUMNER,MED STUDENT Aug 26, 2020 14:59 MARA CRUZ DO Aug 26, 2020 20:32
[2020-08-26] MEDS ORDERED: ALEN70TA2 PO (15:14)
[2020-08-26] MEDS ORDERED: ARIP5TAB12 PO (15:17)
[2020-08-26] MEDS ORDERED: BUDE0.5A IH (15:19)
[2020-08-26] MEDS ORDERED: IPRA4AER IH (15:19)
[2020-08-26] MEDS ORDERED: BRIM10DR16 OP (15:20)
[2020-08-26] MEDS ORDERED: CLC600T PO (15:22)
[2020-08-26 15:38] VITALS: BP 100/63
--- NOTE | 2020-08-26 15:38 | Physical Therapy Evaluation ---
PT Evaluation-General Medical Diagnosis Admission Date Aug 26, 2020 at 14:08 Medical Diagnosis: Disuse Myopathy Onset Date: Aug 26, 2020 Therapy Diagnosis Therapy Diagnosis: Impaired strength and mobility Precautions Precautions/Isolations: Fall Prevention, Standard Precautions Weight Bear Status Right Lower Extremity: Right Full Weight Bearing Left Lower Extremity: Left Full Weight Bearing Referral Physician: Mara Magallanes Reason for Referral: Evaluation/Treatment Medical History Additional Medical History L leg DVT, anxiety, arthritis, asthma, afib, COPD, Depression, diabetes, acid reflux, migraines, HTN, dylipidemia, sleep apnes (CPAP), chronic hypoxic respiratory failure (on O2 2L), L knee replacement, hand surgery 2014 Current History Pt started experiencing issues in May so she started using a walker to get around for 1-2 weeks. Pt then turned to seek medical help; pt has been in multiple hospitals since this time but has not once returned home. Reviewed History: Yes Social History Home: [facility] Current Living Status: Spouse (+adult child + grandchildren) Entry Into Home: Ramp Pt lives with multiple family members that can help with their care but not during the day as they work. Ramp put in place at home 2 yrs ago when pt received TKA. Prior Prior Level of Function SCALE: Activities may be completed with or without assistive devices. 7-Lrqvpupfhh-fshnhzl completes the activity by him/herself with no assistance from a helper. 5-Set-up or Clean-up Assistance-helper sets up or cleans up; patient completes activity. [place] assists only prior to or following the activity. 4-Supervision or Touching Assistance-helper provides verbal cues and/or touching/steadying and/or contact guard assistance as patient completes activity. Assistance may be provided throughout the activity or intermittently. 3-Partial/Moderate Assistance-helper does LESS THAN HALF the effort. [place] lifts, holds or supports trunk or limbs, but provides less than half the effort. 2-Substantial/Maximal Assistance-helper does MORE THAN HALF the effort. [place] lifts or holds trunk or limbs and provides more than half the effort. 9-Ydqeclscv-wpkchu does ALL the effort. Patient does none of the effort to complete the activity. Or, the assistance of 2 or more helpers is required for the patient to complete the activity. If activity was not attempted, code reason: 7-Patient Refused. 9-Not Applicable-not attempted and the patient did not perform the activity before the current illness, exacerbation or injury. 10-Not Attempted due to Environmental Limitations-(lack of equipment, weather restraints, etc.). 88-Not Attempted due to Medical Conditions or Safety Concerns. Bed Mobility: 6 Transfers (B,C,W/C): 6 Gait: 6 Stairs: 6 Wheelchair Mobility: 6 Indoor Mobility (Ambulation): Independent Stairs: Independent Prior Devices Use: None PT Evaluation-Current Subjective Pt presents sitting upright in wheelchair. Pt agrees to PT. Pt reports 5/10 pain in her back. Pt/Family Goals Get stronger so she can go home. Objective Patient Orientation: Person, Place, Time, Eyes Open, Situation Attachments: Oxygen ROM/Strength ROM Lower Extremities WFL Strength Lower Extremities B hip flex, knee flex/ext 4/5 Sensory Vision: Wears Glasses Hearing: Functional Sensation Right Lower Extremit: Impaired Sensation Left Lower Extremity: Intact Sensation Lower Extremities LLE sensation intact to light touch L2-S2 RLE sensation intact to light touch L2-L4 and at S1-S2. RLE sensation unable to feel light touch at L5, but has diminished feeling when firm pressure is applied. Transfers Roll Left to Right (QC): 6 Sit to Lying (QC): 4 Lying to Sitting/Side of Bed(Q: 4 Sit to Stand (QC): 4 Chair/Xwa-ug-Tdshd Xfer(QC): 4 Toilet Transfer (QC): 4 Car Transfer (QC): 4 Pt able to roll independently. Pt was supervised with sit EOB <->lying with SBA. Pt received CGA for Sit to Stand, Chair to chair, toilet, and car transfers. Gait Does the Patient Walk?: Yes Mode of Locomotion: Both Anticipated Mode of Locomotion: Walk Walk 10 feet (QC): 4 Walk 50 ft with 2 Turns(QC): 4 Walk 150 ft (QC): 88 Walking 10ft/uneven surface-QC: 4 Distance: 75'x4 Gait Assistive Device: FWW Comments/Gait Description Pt completes step-through gait pattern. Pt is fearful of falling; WC follow- behind. Pt encouraged to try walking; initially required seated rest breaks after 20'. At end of session pt was ambulated 75' before requiring rest. Pt reports legs get "shaky" after walking too long. Wheelchair Training Does the Pt Use a Wheelchair?: Yes Distance: 75' Wheel 50 ft with 2 turns (QC): 4 Wheel 150 ft (QC): 88 Type of Wheelchair: Manual Pt given instructions on how to utilize wheelchair. Pt was able to propel and steer self with UEs and LEs. Stairs #of Steps: 1 1 Step (curb) (QC): 4 4 Steps (QC): 88 12 Steps (QC): 88 Walking Assistive Device: Walker Balance Sitting Static: Normal Sitting Dynamic: Normal Standing Static: Good Standing Dynamic: Good Picking up an Object (QC): 3 Treatment Standing balance with UE manipulation Seated marches, hip add/abd with balloon, LAQ, HR/TR Bx20 Assessment/Needs Co-treated with OT due to patient's limitation in strength and mobility, the need to coordinate UE and LE during activity and balance activiites. PT addressed pt's transfers, standing balance, and LE exercises while OT focused on patient's UE coordination. Pt is fearful of ambulating and standing activities where she could lose her balance because she was told that is she fell she would break her back. Pt is limited in strength and endurance with activities. Rehab Potential: Fair PT Short Term Goals Short Term Goals Time Frame: Sep 02, 2020 Sit to lyin Lying to sitting on side of be: 6 Sit to stand: 5 Walk 50 feet with two turns: 4 Walk 150 feet: 4 PT Longterm Goals Medical Records Coordinator Goals PT Longterm Goals Time Frame: Sep 16, 2020 Roll Left & Right (QC): 6 Sit to Lying (QC): 6 Lying-Sitting on Side/Bed(QC): 6 Sit to Stand (QC): 6 Chair/Pld-sn-Mvoss Xfer(QC): 6 Toilet Transfer (QC): 6 Car Transfer (QC): 6 Does the Patient Walk: Yes Walk 10 feet (QC): 6 Walk 50ft with 2 Turns (QC): 6 Walk 150 ft (QC): 5 Walking 10ft on Uneven Surface: 5 1 Step (curb) (QC): 6 4 Steps (QC): 4 12 Steps (QC): 4 Picking up an Object (QC): 4 Does the Pt use WC or Scooter?: Yes Wheel 50 feet with 2 turns (QC: 6 Type: Manual Wheel 150 feet: 6 Type: Manual PT Plan Problem List Problem List: Activity Tolerance, Functional Strength, Safety, Balance, Gait, Transfer, Bed Mobility, ROM Treatment/Plan Treatment Plan: Continue Plan of Care Treatment Plan: Bed Mobility, Education, Functional Activity [place], Functional Strength, Group Therapy, Gait, Safety, Therapeutic Exercise, Transfers Treatment Duration: Sep 16, 2020 Frequency: At least 5 of 7 days/Wk (IRF) Estimated Hrs Per Day: 1.5 hours per day Patient and/or Family Agrees t: Yes Safety Risks/Education Patient Education: Gait Training, Transfer Techniques, Steps, Correct Positioning, W/C Management, Safety Issues Teaching Recipient: Patient Teaching Methods: Demonstration, Discussion Response to Teaching: Reinforcement Needed Discharge Recommendations Plan Pt will work on gait training, bed mobility,transfers, and functional strengthening. Therapy Discharge Recommendati: Home & Family Time/GCodes Time In: 1400 Time Out: 1540 Total Billed Treatment Time: 90 Total Billed Treatment 1 visit EVM 10' EX 15' FA 65' PT eval [id number]; OT eval [id number]; Co-treated [id number] SEAN MARTINEZ PT Aug 26, 2020 15:38
--- NOTE | 2020-08-26 15:48 | Occupational Therapy Eval ---
OT Evaluation-General/PLF Medical Diagnosis Admission Date Aug 26, 2020 at 14:08 Medical Diagnosis: Disuse Myopathy Onset Date: Aug 26, 2020 Therapy Diagnosis Therapy Diagnosis: impaired ADLs/functional mobility Weight Bear Status Weight Bearing Restriction: Weight Bearing/Tolerated Location Restriction: RT FOOT (with surgical shoe, wound on bottom of foot) Referral Physician: Sona Medical History Additional Medical History L leg DVT, anxiety, arthritis, asthma, afib, COPD, Depression, diabetes, acid reflux, migraines, HTN, dylipidemia, sleep apnes (CPAP), chronic hypoxic respiratory failure (on O2 2L), L knee replacement, hand surgery 2014 Current History Pt started experiencing issues in May, she used a walker to get around for ~1.5 weeks. She went to the hospital, and has been to multiple hospitals since May, but has not been able to return home yet. Social History Home: Multilevel (stays on 1st floor) Current Living Status: Spouse (& other family members) Entry Into Home: Ramp ADL-Prior Level of Function SCALE: Activities may be completed with or without assistive devices. 9-Hujdkwsuhe-ijqfthh completes the activity by him/herself with no assistance from a helper. 5-Set-up or Clean-up Assistance-helper sets up or cleans up; patient completes activity. [place] assists only prior to or following the activity. 4-Supervision or Touching Assistance-helper provides verbal cues and/or to uching/steadying and/or contact guard assistance as patient completes activity. Assistance may be provided throughout the activity or intermittently. 3-Partial/Moderate Assistance-helper does LESS THAN HALF the effort. [place] lifts, holds or supports trunk or limbs, but provides less than half the effort. 2-Substantial/Maximal Assistance-helper does MORE THAN HALF the effort. [place] lifts or holds trunk or limbs and provides more than half the effort. 8-Wwaafmnrj-jvgags does ALL the effort. Patient does none of the effort to complete the activity. Or, the assistance of 2 or more helpers is required for the patient to complete the activity. If activity was not attempted, code reason: 7-Patient Refused. 9-Not Applicable-not attempted and the patient did not perform the activity before the current illness, exacerbation or injury. 10-Not Attempted due to Environmental Limitations-(lack of equipment, weather restraints, etc.). 88-Not Attempted due to Medical Conditions or Safety Concerns. ADL PLOF Comments Pt indicates she lives at home with her , her daughter, and her daughter's children. She has a 2 story house but stays on the first floor and has everything she needs on the first floor. Pt indicates she is home alone louisa ng the day when everyone else is at work. At [facility], pt was able to complete bathing/dressing/cooking independently but her daughter in law sometimes assists with cleaning. She has a walker at home that she sometimes used, but she did not use it all the time. She has a walk in shower, with shower chair and grab bars. Self Care: Independent Functional Cognition: Independent DME/Equipment: Bath Chair, Grab Bars, Shower DME/Equipment Comments FWW OT Current Status Subjective Pt agreeable to OT evaluation and tx. During session, pt indicates 5/10 pain in her back. Mental Status/Objective Patient Orientation: Person, Place, Time, Situation Current Glasses/Contacts: Yes Hearing Aids: No Dentures/Partials: Yes Hand Dominance: Right Upper Extremity Coordination WFL, BUE shoulder flexion to approx 155 degrees, she is able to touch the back of her head. Upper Extremity Sensation WFL Upper Extremity Strength pt denies tingling/numbness BUEs ADL-Treatment Eating (QC): 6 (pt indicates no difficulties with feeding) Oral Hygiene (QC): 7 Shower/Bathe Self (QC): 7 Upper Body Dressing (QC): 7 Lower Body Dressing (QC): 7 On/Off Footwear (QC): 7 Toileting Hygiene (QC): 7 Other Treatments [id number] OT evaluation: OT educated pt on purpose and benefit of OT. Pt then provided info on PLOF and home set up as well as participate in UE screen. [id number] OT/PT cotreat: OT/PT cotreat due to skill of 2 clinicians required which a rehab care assistant can not perform in order to coordinate UE/LEs with activities, decrease fall risk, focus on improving dynamic standing balance, and increase BUE strength and functional endurance. OT focused on UE placement, cues for sequencing and safety, UE activity, assist with balance activity while PT focused on functional mobility, overall gross movements, LE placement, LE activity, and functional balance. Pt transferred in/out of car simulation, then used FWW to ambulate over uneven surface, and up/down step. Pt indicated fatigue, requiring seated rest break. Pt taken into gym to parallel bars, pt able to ambulate 1 length of bars and take a rest break. Pt then stood at parallel bars with activity focused on increasing functional balance with reac jorge. Pt reached for x10 cones in all planes, x2 sets each hand with rest breaks between each set. Pt expressed she fatigues quickly when up on her feet. Pt then used FWW to ambulate to therapy mat, picking up 1 object off of the floor on the way. Pt states she is too tired to complete another standing task at this time, requesting rest break. Pt able to complete a few LE exercises seated. Pt then stood at [facility], hitting a balloon back and forth with OT, as PT focused on balance, pt able to complete task ~1 min before requesting to sit. After rest break, pt ambulated towards her room, requiring [address] seated [address] breaks [address] the way. Pt transferred into bed. Pt educated on rehab process/expectations, she verbalized understanding. Post OT/PT cotreat, pt laying in bed, call light in reach and all needs met. Education OT Patient Education: Correct positioning, Energy conservation, Modified ADL techniques, Progress toward Goal/Update tx plan, Purpose of tx/functional activities, Rehab process, Safety issues, W/C management Teaching Recipient: Patient Teaching Methods: Discussion Response to Teaching: Verbalize Understanding OT Historical Society Director Goals Custodial Goals Time Frame: Sep 19, 2020 Eating (QC): 6 Oral Hygiene (QC): 6 Toileting Hygiene (QC): 6 Shower/Bathe Self (QC): 6 Upper Body Dressing (QC): 6 Lower Body Dressing (QC): 6 On/Off Footwear (QC): 6 Additional Goals: 1-Demonstrate ADL Tasks, 2-Verbalize Understanding, 3- ImproveStrength/[place] 1=Demonstrate adherence to instructed precautions during ADL tasks. 2=Patient will verbalize/demonstrate understanding of assistive devices/modific ations for ADL. 3=Patient will improve strength/tolerance for activity to enable patient to perform ADL's. OT Education/Plan Problem List/Assessment Assessment: Decreased Activ Tolerance, Decreased UE Strength, Impaired Funct Balance, Impaired I ADL's, Impaired Self-Care Skills Discharge Recommendations Plan/Recommendations: Continue POC Treatment Plan/Plan of Care Treatment,Training & Education: Yes Patient would benefit from OT for education, treatment and training to promote independence in ADL's, mobility, safety and/or upper extremity function for ADL's. Plan of Care: ADL Retraining, Functional Mobility, Group Exercise/Act as Ind, UE Funct Exercise/Act Treatment Duration: Sep 19, 2020 Frequency: At least 5 of 7 days/Wk (IRF) Estimated Hrs Per Day: 1.5 hours per day Agreement: Yes Rehab Potential: Good Time/GCodes Start Time: 14:10 Stop Time: 15:40 Total Time Billed (hr/min): 90 Billed Treatment Time x10' OT eval [id number], x80' OT/PT cotreat [id number] 1, EVM (10'), FA 5 (90') KATIE ROBLERO OT Aug 26, 2020 15:48
[2020-08-26 16:16] VITALS: BP_SYST 100; BP_SYST 152; BP_DIAS 63; BP_DIAS 65
--- NOTE | 2020-08-26 16:27 | Consultation - Surgery ---
BHARATH RUELAS,MED STUDENT 08/26/20 1627: History of Present Illness History of Present Illness Patient Consulted On(lenny/time) 08/26/20 16:23 Date Seen by Provider: Aug 26, 2020 Time Seen by Provider: 15:40 History of Present Illness Patient is a 55 year old female in inpatient rehab complaining of nausea for 3 weeks. She states that it comes on after having several BMs in one day and some times after she eats. She states it lasts 24-48 hours when it occurs. She has also had some diarrhea since starting antibiotics. Allergies and Home Medications Allergies Coded Allergies: Penicillins (Unverified Allergy, Unknown, 02/06/20) Tetracyclines (Unverified Allergy, Unknown, 02/06/20) adhesive tape (Unverified Allergy, Unknown, 02/06/20) gabapentin (Unverified Allergy, Unknown, 02/06/20) morphine (Unverified Allergy, Unknown, PT TAKES LORTAB AT HOME, 08/26/20) Home Medications Acetaminophen 650 Mg Tablet.er, 650 MG PO Q6H PRN for PAIN-MILD (1-4) OR TEMPATURE, (Reported) Alendronate Sodium 70 Mg Tablet, 70 MG PO DAILY, (Reported) Alprazolam 1 Mg Tablet, 1 MG PO QID PRN for ANXIETY, (Reported) Alteplase 2 Mg Vial, 2 MG BC PRN PRN for CLOGGED PICC, (Reported) Aripiprazole 5 Mg Tablet, 5 MG PO HS, (Reported) Brimonidine Tartrate 5 Ml Drops, 1 DROP OU DAILY, (Reported) Budesonide 0.5 Mg/2 Ml Ampul.neb, 0.5 MG IH BID, (Reported) Calcium Carbonate 600 Mg Tablet, 1,200 MG PO DAILY, (Reported) Calcium Carbonate 400 Mg Tab.chew, 400 MG PO DAILY, (Reported) Cefazolin Sodium 1 Gm Vial, 2 GM IV Q8H, (Reported) STOP DATE 09-03-2020 Cetirizine HCl 10 Mg Tablet, 10 MG PO DAILY, (Reported) Cholecalciferol (Vitamin D3) 25 Mcg Tablet, 50 MCG PO DAILY, (Reported) TAKES 2 (25MG) TABS Clobetasol Propionate 15 Gm Cream..g., 1 APPFUL TP HS, (Reported) APPLY TO LEFT CHIN TO ANKLE Dextrose 50 % in Water 50 Ml Syringe, 50 ML IV PRN PRN for BLOOD GLUCOSE LESS THEN 50, (Reported) Diclofenac Sodium 20 Gm Gel..gram., 1 APPLIC TP BID, (Reported) APPLY TO LOW BACK L2-L3 REGION Enoxaparin Sodium 40 Mg/0.4 Ml Syringe, 40 MG SQ DAILY, (Reported) Fenofibrate 54 Mg Tablet, 54 MG PO DAILY, (Reported) Fentanyl 1 Each Patch.td72, 50 MCG TD Q72H, (Reported) THERE IS NOT A LAST APPLIED DATE ON THE DISCHARGE ORDERS Fluconazole 100 Mg Tablet, 100 MG PO Q72H, (Reported) STOP DATE 09-13-2020 Fluticasone Propionate 9.9 Ml [place].susp, 2 SPRAY NS BID, (Reported) Furosemide 20 Mg Tablet, 40 MG PO DAILY, (Reported) HOLD FOR SBP LESS THAN 100 TAKES 2 (20MG) TABS Hydrocodone/Acetaminophen 1 Each Tablet, 1 TAB PO Q4H PRN for PAIN-SEVERE (8- 10), (Reported) Insulin Glargine,Hum.rec.anlog 100 Unit/1 Ml Vial, 5 UNIT SQ HS, (Reported) Insulin Lispro 100 Unit/1 Ml Vial, 0-14 UNIT SQ ACHS, (Reported) Ipratropium/Albuterol Sulfate 3 Ml Ampul.neb, 3 ML IH BID, (Reported) Ipratropium/Albuterol Sulfate 3 Ml Ampul.neb, 3 ML IH Q4H PRN for SHORTNESS OF BREATH, (Reported) Lactobacillus Acidophilus/Pect 1 Each Capsule, 2 EACH PO TID, (Reported) Latanoprost 2.5 Ml Drops, 1 DROP OU HS, (Reported) Lisinopril 5 Mg Tablet, 5 MG PO DAILY, (Reported) HOLD FOR SBP LESS THAN 100 Loperamide HCl 2 Mg Capsule, 2 MG PO Q4H PRN for LOOSE STOOLS, (Reported) Meloxicam 15 Mg Tablet, 15 MG PO DAILY, (Reported) Mirtazapine 15 Mg Tablet, 15 MG PO HS, (Reported) Montelukast Sodium 10 Mg Tablet, 10 MG PO HS, (Reported) Multivits,Ca,Minerals/Iron/FA 1 Each Tablet, 1 EACH PO DAILY, (Reported) Pantoprazole Sodium 40 Mg Tablet.dr, 40 MG PO DAILY, (Reported) Paroxetine HCl 10 Mg Tablet, 40 MG PO 1000, (Reported) TAKES 4 (10MG) TABS Pentoxifylline 400 Mg Tablet.er, 400 MG PO TID, (Reported) Potassium Chloride 20 Meq Tab.er.prt, 40 MEQ PO Q6H, (Reported) TAKES 2 (20MEQ) TABS THREE TIMES DAILY Prednisone 10 Mg Tab, 20 MG PO DAILY, (Reported) TAKES 2 (10MG) TABS Pregabalin 100 Mg Capsule, 100 MG PO BID, (Reported) Prochlorperazine Maleate 10 Mg Tablet, 10 MG PO Q6H PRN for NAUSEA/VOMITING-1ST LINE, (Reported) Quetiapine Fumarate 25 Mg Tablet, 25 MG PO BID, (Reported) Rifampin 300 Mg Capsule, 300 MG PO Q8H, (Reported) STOP DATE 09-03-2020 Sodium Chloride 30 Ml [place], 1 SPRAY NSEACH BID, (Reported) Spironolactone 25 Mg Tablet, 25 MG PO BID, (Reported) Tiotropium [place] 1 Inh Aerp, 1 INH IH DAILY, (Reported) Topiramate 50 Mg Tablet, 50 MG PO DAILY, (Reported) Past Ivcngsf-Hlgvmp-Nqximv Hx Patient Social History Alcohol Use: Denies Use Recreational Drug Use: No Smoking Status: Former Smoker Former Smoker, Quit: Aug 26, 2017 Type Used: Cigarettes Recent Foreign Travel: No Contact w/Someone Who Travel: No Recent Infectious Disease Expo: No Recent Hopitalizations: Yes Physical Abuse Screen: No Sexual Abuse: No Immunizations Up To Date PED Vaccines UTD: Yes Seasonal Allergies Seasonal Allergies: Yes Surgeries History of Surgeries: Yes Surgeries: Abdominal (fundoplication), Appendectomy, Eye Surgery (glaucoma), Gallbladder, Hysterectomy, Orthopedic (knee), Tonsillectomy Respiratory Respiratory Disorders: Pneumonia, Sleep Apnea, COPD Cardiovascular History of Cardiac Disorders: Yes Neurological History of Neurological Disord: Yes Genitourinary History of Genitourinary Disor: No Gastrointestinal Gastrointestinal Disorders: Abdominal Hernia, Gastroesophageal Reflux, Hemorrhoids, Chronic Diarrhea, Hiatal Hernia Musculoskeletal History of Musculoskeletal Dis: Yes (OSTEOMYELITIS) Musculoskeletal Disorders: Arthritis, Back Injury, Chronic Back Pain Endocrine History of Endocrine Disorders: Yes Endocrine Disorders: Diabetes, Insulin dep HEENT History of HEENT Disorders: Yes HEENT Disorders: Cataract, Glaucoma Loss of Vision: Denies Hearing Impairment: Denies Cancer History of Cancer: No Psychosocial History of Psychiatric Problem: Yes Behavioral Health Disorders: Sleep Difficulties, Anxiety, Depression Integumentary History of Skin or Integumenta: No Blood Transfusions Adverse Reaction to a Blood Tr: No Family Medical History Family Medial History: Arthritis 19 FATHER Asthma G8 SISTER Cardiovascular disease 19 FATHER 19 MOTHER Completed stroke 19 FATHER 19 MOTHER Diabetes mellitus 19 FATHER Hypertension 19 FATHER 19 MOTHER Kidney disease G8 SISTER Respiratory disorder 19 MOTHER Seizure disorder G8 SISTER Review of Systems-General Constitutional: no symptoms reported Respiratory: no symptoms reported Cardiovascular: no symptoms reported Gastrointestinal: No abdominal pain; diarrhea, nausea Genitourinary: no symptoms reported Musculoskeletal: back pain Physical Exam-General Problems Physical Exam Vital Signs Vital Signs - First Documented 08/26/20 15:38 Temp 36.4 Pulse 98 Resp 16 B/P (MAP) 100/63 Pulse Ox 98 O2 Delivery Nasal Cannula O2 Flow Rate 2.00 Capillary Refill : General Appearance: no apparent distress HEENT: PERRL/EOMI Respiratory: no respiratory distress, no accessory muscle use Cardiovascular: regular rate, rhythm, no edema Gastrointestinal: non tender, soft, distended Extremities: no pedal edema Neurologic/Psychiatric: alert, normal mood/affect Skin: normal color, warm/dry Lymphatic: no adenopathy Data Review Labs Laboratory Tests 08/26/20 15:42: Glucometer 206H Assessment/Plan Assessment/Plan Assessment/Plan Nausea- likely multifactorial (medications, diarrhea, etc) Diarrhea- consider C.diff stool antigen testing EKATERINA EID DO 08/26/201928: History of Present Illness History of Present Illness History of Present Illness Consult requested by Dr. Magallanes for nausea Patient is a 55-year-old female who was diagnosed with pneumonia sepsis and was transferred to [facility] from [facility]. Patient was requiring intubation. She was also found to have osteomyelitis of her lumbar spine. Patient was on long-term antibiotics and was transferred to [facility] for continued long-term treatment. Patient is now transferred to inpatient rehab facility here currently. Patient states she has had nausea for about 3 weeks. She states that usually worsens after having multiple bowel movements for some reason. Patient states she also can eat sometimes and will have some nausea as well. She states that when it occurs it will last for 24 to 48 hours and then it will resolve on its own. She does not know if anything induces the nausea and does not really know of anything that is making it better. She questions if the medicines are making it better for nausea. Patient has not had any emesis. She has no abdominal pain. She has no other complaints at this time. She denies any fever sweats chills shortness of breath or chest pain at this time. Allergies and Home Medications Allergies Coded Allergies: Penicillins (Unverified Allergy, Unknown, 02/06/20) Tetracyclines (Unverified Allergy, Unknown, 02/06/20) adhesive tape (Unverified Allergy, Unknown, 02/06/20) gabapentin (Unverified Allergy, Unknown, 02/06/20) morphine (Unverified Allergy, Unknown, PT TAKES LORTAB AT HOME, 08/26/20) Home Medications Acetaminophen 650 Mg Tablet.er, 650 MG PO Q6H PRN for PAIN-MILD (1-4) OR TEMPATURE, (Reported) Alendronate Sodium 70 Mg Tablet, 70 MG PO DAILY, (Reported) Alprazolam 1 Mg Tablet, 1 MG PO QID PRN for ANXIETY, (Reported) Alteplase 2 Mg Vial, 2 MG BC PRN PRN for CLOGGED PICC, (Reported) Aripiprazole 5 Mg Tablet, 5 MG PO HS, (Reported) Brimonidine Tartrate 5 Ml Drops, 1 DROP OU DAILY, (Reported) Budesonide 0.5 Mg/2 Ml Ampul.neb, 0.5 MG IH BID, (Reported) Calcium Carbonate 600 Mg Tablet, 1,200 MG PO DAILY, (Reported) Calcium Carbonate 400 Mg Tab.chew, 400 MG PO DAILY, (Reported) Cefazolin Sodium 1 Gm Vial, 2 GM IV Q8H, (Reported) STOP DATE 09-03-2020 Cetirizine HCl 10 Mg Tablet, 10 MG PO DAILY, (Reported) Cholecalciferol (Vitamin D3) 25 Mcg Tablet, 50 MCG PO DAILY, (Reported) TAKES 2 (25MG) TABS Clobetasol Propionate 15 Gm Cream..g., 1 APPFUL TP HS, (Reported) APPLY TO LEFT CHIN TO ANKLE Dextrose 50 % in Water 50 Ml Syringe, 50 ML IV PRN PRN for BLOOD GLUCOSE LESS THEN 50, (Reported) Diclofenac Sodium 20 Gm Gel..gram., 1 APPLIC TP BID, (Reported) APPLY TO LOW BACK L2-L3 REGION Enoxaparin Sodium 40 Mg/0.4 Ml Syringe, 40 MG SQ DAILY, (Reported) Fenofibrate 54 Mg Tablet, 54 MG PO DAILY, (Reported) Fentanyl 1 Each Patch.td72, 50 MCG TD Q72H, (Reported) THERE IS NOT A LAST APPLIED DATE ON THE DISCHARGE ORDERS Fluconazole 100 Mg Tablet, 100 MG PO Q72H, (Reported) STOP DATE 09-13-2020 Fluticasone Propionate 9.9 Ml [place].susp, 2 SPRAY NS BID, (Reported) Furosemide 20 Mg Tablet, 40 MG PO DAILY, (Reported) HOLD FOR SBP LESS THAN 100 TAKES 2 (20MG) TABS Hydrocodone/Acetaminophen 1 Each Tablet, 1 TAB PO Q4H PRN for PAIN-SEVERE (8- 10), (Reported) Insulin Glargine,Hum.rec.anlog 100 Unit/1 Ml Vial, 5 UNIT SQ HS, (Reported) Insulin Lispro 100 Unit/1 Ml Vial, 0-14 UNIT SQ ACHS, (Reported) Ipratropium/Albuterol Sulfate 3 Ml Ampul.neb, 3 ML IH BID, (Reported) Ipratropium/Albuterol Sulfate 3 Ml Ampul.neb, 3 ML IH Q4H PRN for SHORTNESS OF BREATH, (Reported) Lactobacillus Acidophilus/Pect 1 Each Capsule, 2 EACH PO TID, (Reported) Latanoprost 2.5 Ml Drops, 1 DROP OU HS, (Reported) Lisinopril 5 Mg Tablet, 5 MG PO DAILY, (Reported) HOLD FOR SBP LESS THAN 100 Loperamide HCl 2 Mg Capsule, 2 MG PO Q4H PRN for LOOSE STOOLS, (Reported) Meloxicam 15 Mg Tablet, 15 MG PO DAILY, (Reported) Mirtazapine 15 Mg Tablet, 15 MG PO HS, (Reported) Montelukast Sodium 10 Mg Tablet, 10 MG PO HS, (Reported) Multivits,Ca,Minerals/Iron/FA 1 Each Tablet, 1 EACH PO DAILY, (Reported) Pantoprazole Sodium 40 Mg Tablet.dr, 40 MG PO DAILY, (Reported) Paroxetine HCl 10 Mg Tablet, 40 MG PO 1000, (Reported) TAKES 4 (10MG) TABS Pentoxifylline 400 Mg Tablet.er, 400 MG PO TID, (Reported) Potassium Chloride 20 Meq Tab.er.prt, 40 MEQ PO Q6H, (Reported) TAKES 2 (20MEQ) TABS THREE TIMES DAILY Prednisone 10 Mg Tab, 20 MG PO DAILY, (Reported) TAKES 2 (10MG) TABS Pregabalin 100 Mg Capsule, 100 MG PO BID, (Reported) Prochlorperazine Maleate 10 Mg Tablet, 10 MG PO Q6H PRN for NAUSEA/VOMITING-1ST LINE, (Reported) Quetiapine Fumarate 25 Mg Tablet, 25 MG PO BID, (Reported) Rifampin 300 Mg Capsule, 300 MG PO Q8H, (Reported) STOP DATE 09-03-2020 Sodium Chloride 30 Ml [place], 1 SPRAY NSEACH BID, (Reported) Spironolactone 25 Mg Tablet, 25 MG PO BID, (Reported) Tiotropium [place] 1 Inh Aerp, 1 INH IH DAILY, (Reported) Topiramate 50 Mg Tablet, 50 MG PO DAILY, (Reported) Patient Home Medication List Home Medication List Reviewed: Yes Past Bvgmibl-Cpdtxa-Tnodpb Hx Reviewed Nursing Assessment Reviewed/Agree w Nursing PMH: Yes Family Medical History Significant Family History: No Pertinent Family Hx Family Medial History: Arthritis 19 FATHER Asthma G8 SISTER Cardiovascular disease 19 FATHER 19 MOTHER Completed stroke 19 FATHER 19 MOTHER Diabetes mellitus 19 FATHER Hypertension 19 FATHER 19 MOTHER Kidney disease G8 SISTER Respiratory disorder 19 MOTHER Seizure disorder G8 SISTER Review of Systems-General Constitutional: no symptoms reported; No chills, No diaphoresis EENTM: No blurred vision, No double vision Respiratory: no symptoms reported; No cough, No dyspnea on exertion Cardiovascular: no symptoms reported; No chest pain, No palpitations Gastrointestinal: No abdominal pain; diarrhea, nausea; No vomiting Genitourinary: no symptoms reported; No decreased output, No discharge Musculoskeletal: back pain; No muscle pain; muscle weakness Skin: No change in color, No change in hair/nails Psychiatric/Neurological: Denies Anxiety, Denies Depressed, Denies Emotional Problems All Other Systems Reviewed Negative Unless Noted: Yes (Negative excepted noted.) Physical Exam-General Problems Physical Exam General Appearance: WD/WN, no apparent distress HEENT: PERRL/EOMI, normal ENT inspection Neck: non-tender, supple, normal inspection Respiratory: chest non-tender, no respiratory distress, no accessory muscle use Cardiovascular: regular rate, rhythm, no edema, no JVD Gastrointestinal: non tender, soft, distended (minimal) Rectal: deferred Back: no CVA tenderness, no vertebral tenderness Extremities: normal range of motion, normal inspection, no pedal edema 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 Supervisory-Addendum Brief Verification & Attestation Participated in pt care: history, MDM, physical Personally performed: exam, history, MDM, supervision of care Care discussed with: Medical Student Procedures: n/a Results interpretation: Verified all documentation Verification and Attestation of Medical Student E/M Service A medical student performed and documented this service in my presence. I reviewed and verified all information documented by the medical student and made modifications to such information, when appropriate. I personally performed the physical exam and medical decision making. Ekaterina Eid, Aug 26, 2020,19:33 BHARATH RUELAS,MED STUDENT Aug 26, 2020 16:27 EKATERINA EID DO Aug 26, 2020 19:29
[2020-08-26] MEDS ORDERED: CETI10TA49 PO (16:29)
[2020-08-26] MEDS ORDERED: FURO20TA4 PO (16:29)
[2020-08-26] MEDS ORDERED: SPIR25TA PO (16:29)
[2020-08-26] MEDS ORDERED: LACT1CAP7 PO (16:29)
[2020-08-26] MEDS ORDERED: MULT1TAB63 PO (16:29)
[2020-08-26] MEDS ORDERED: ONDA4TAB11 PO (16:29)
[2020-08-26] MEDS ORDERED: CLOB15CR2 TP (16:29)
[2020-08-26] MEDS ORDERED: ALEN70TA5 PO (16:29)
[2020-08-26] MEDS ORDERED: MELO15TA39 PO (16:29)
[2020-08-26] MEDS ORDERED: IPRA3AMP31 IH ×2 (16:29)
[2020-08-26] MEDS ORDERED: FLUT9.9S NS (16:29)
[2020-08-26] MEDS ORDERED: PANT40TA52 PO (16:29)
[2020-08-26] MEDS ORDERED: ACET-2650 PO (16:29)
[2020-08-26] MEDS ORDERED: CEFA1VIA3 IV (16:29)
[2020-08-26] MEDS ORDERED: SODI30SP2 NSEACH (16:29)
[2020-08-26] MEDS ORDERED: ALPR1TAB7 PO (16:29)
[2020-08-26] MEDS ORDERED: FENO54TA PO (16:29)
[2020-08-26] MEDS ORDERED: BRIM5DRO2 OU (16:29)
[2020-08-26] MEDS ORDERED: INSU100V39 SQ (16:29)
[2020-08-26] MEDS ORDERED: QUET25TA73 PO (16:29)
[2020-08-26] MEDS ORDERED: LISI-556 PO (16:29)
[2020-08-26] MEDS ORDERED: INSU100V6 SQ (16:29)
[2020-08-26] MEDS ORDERED: POTA20TA8 PO (16:29)
[2020-08-26] MEDS ORDERED: [UNRECOGNIZED DRUG - CODE] PO (16:29)
[2020-08-26] MEDS ORDERED: DEXT50DI2 IV (16:29)
[2020-08-26] MEDS ORDERED: PARO10TA3 PO (16:29)
[2020-08-26] MEDS ORDERED: BUDE0.5A7 IH (16:29)
[2020-08-26] MEDS ORDERED: FENT1PAT9 TD (16:29)
[2020-08-26] MEDS ORDERED: DICL20GE TP (16:29)
[2020-08-26] MEDS ORDERED: PNT400TCR PO (16:29)
[2020-08-26] MEDS ORDERED: TIOT18CA2 IH (16:29)
[2020-08-26] MEDS ORDERED: PREG100C PO (16:29)
[2020-08-26] MEDS ORDERED: NAPR250T6 PO (16:29)
[2020-08-26] MEDS ORDERED: [UNRECOGNIZED DRUG - CODE] PO (16:29)
[2020-08-26] MEDS ORDERED: FLUC100T6 PO (16:29)
[2020-08-26] MEDS ORDERED: HYDR-4196 PO (16:29)
[2020-08-26] MEDS ORDERED: PROC-1 PO (16:29)
[2020-08-26] MEDS ORDERED: ALTE2VIA2 BC (16:29)
[2020-08-26] MEDS ORDERED: LATA2.5D5 OU (16:29)
[2020-08-26] MEDS ORDERED: ENOX40DI13 SQ (16:29)
[2020-08-26] MEDS ORDERED: PRD10T PO (16:29)
[2020-08-26] MEDS ORDERED: MONT10TA26 PO (16:29)
[2020-08-26] MEDS ORDERED: TOPI50TA37 PO (16:29)
[2020-08-26] MEDS ORDERED: RIFA300C3 PO (16:29)
[2020-08-26] MEDS ORDERED: ARIP5TAB57 PO (16:29)
[2020-08-26] MEDS ORDERED: MIRT15TA6 PO (16:29)
[2020-08-26] MEDS ORDERED: LOPE2CAP PO (16:29)
[2020-08-26] MEDS ORDERED: CHOL10002 PO (16:38)
--- NOTE | 2020-08-26 16:40 | NUR ---
THE MED REC HAS BEEN ENTERED USING THE DISCHARGE ORDERS FROM [facility]: ON THE DISCHARGE ORDERS THERE WAS NOT A DATE GIVEN FOR THE LAST TIME A PATCH WAS APPLIED Addendum: 09/02/20 at 1410 by FRANK MEEHAN CPhT SPOKE WITH THE PT, WENT THRU THE EXT MED HISTORY, CALLED [facility] AND CALLED DR. YUNG (PTS REFINING EQUIPMENT OPERATOR) TO COMPLETE THE MED REC THE FOLLOWING MEDICATIONS HAVE BEEN REMOVED FROM THE MED REC DUE TO PT NOT TAKING PRIOR TO [facility]: CEFAZOLIN CETIRIZINE (PT USES SHANNON AT HOME) DICLOFENAC GEL ENOXAPARIN FLUCONAZOLE PROBIOTIC LISINOPRIL 5MG PENTOXIFYLLINE ER 400MG RIFAMPIN 300MG TOPIRAMATE 25MG CATHFLO DEXTROSE PROCHLORPEMAZINE 10MG MEDICATIONS THAT HAVE BEEN CHANGED: ALPHAGAN P- DIRECTIONS FROM [facility] SHOW 1 DROP OU DAILY AT HOME PT USES 1 DROP OU Q8H FENOFIBRATE- STRENGTH FROM [facility] IS 54MG DAILY AT HOME PT TAKES 145MG DAILY FUROSEMIDE- [facility] HAD 2 (20MG) TABS DAILY HOME PT WAS TAKING 80MG BID PAROXETINE- [facility] HAD 40MG DAILY AT HOME PT TAKES 60MG (TWO 30MG) TABS DAILY POTASSIUM CHLORIDE- [facility] HAD 40MEQ Q6H AT HOME PT TAKES 10MEQ BID PREDNISONE- [facility] HAD 20MG DAILY AT HOME PT TAKES 30MG DAILY (IF POSSIBLE SHE WOULD LIKE TO STAY ON 20MG DAILY) PREGABALIN- [facility] HAD 100MG BID AT HOME 150MG BID HYDROCODONE- [facility] HAD 10/325MG Q4H AT HOME PT WAS TAKING 7.5/325MG Q6H QUETIAPINE- [facility] HAD 25MG BID AT HOME PT WAS TAKING 25-50 HS PRN I SPOKE WITH DR. GONGORA OFFICE AND WAS TOLD ON 06-11-2020 PT RECEIVED A BOX OF TRESIBA U-200 PENS (#5) A SAMPLE. OTC MEDS PT TAKES AT HOME: TYLENOL CALCIUM CARB TUMS VIT D SHANNON FLONASE [employer]
[2020-08-26] MEDS ORDERED: DEXTROSE 50% 50 ML (IMS) SYR IV PRN (17:00)
[2020-08-26] MEDS ORDERED: RT-ALBUTEROL/IPRATROPIUM 3 ML (DUONEB) VIAL IH PRN (17:00)
[2020-08-26] MEDS ORDERED: fentaNYL PATCH 50 MCG (DURAGESIC) TD SCH (17:00)
[2020-08-26] MEDS ORDERED: ceFAZolin INJECTION 1,000 MG VIAL IV SCH (17:00)
[2020-08-26] MEDS ORDERED: ALTEPLASE 2 MG (CATHFLO) INCATH PRN (17:00)
[2020-08-26] MEDS ORDERED: ACETAMINOPHEN 325 MG TABLET PO PRN (17:45)
[2020-08-26] MEDS: ENOXAPARIN 40 MG/0.4 ML (LOVENOX) SYR SC SCH (18:04)
[2020-08-26] MEDS: KCL 20 MEQ TAB (K-DUR) PO SCH ×2 (18:05→23:08)
[2020-08-26] MEDS: fluCOnazole (DIFLUCAN) 100 MG TAB PO SCH (18:05)
[2020-08-26] MEDS: ALPRAZolam 1 MG (XANAX) TAB PO PRN (18:08)
[2020-08-26] MEDS: ceFAZolin 2 GM/50 ML (PRE-MIXED) IV SCH (19:19)
--- NOTE | 2020-08-26 19:25 | NUR ---
bedside report received from RACHEAL LIRIANO, assume care of pt
[2020-08-26] MEDS ORDERED: FLU QUADRIvalent (3YOA+) 60 mcg/0.5 ml 2020-21 (AFLURIA) IM ONE (19:45)
[2020-08-26] MEDS: PENTOXIFYLLINE ER 400 MG (TRENtal) TAB PO SCH (20:55)
[2020-08-26] MEDS: LACTOBACILLUS ACIDOPHILUS (PROBIOTIC) CAPSULE PO SCH (20:55)
[2020-08-26] MEDS: PREGABALIN 100 MG (LYRICA) CAPSULE PO SCH (20:55)
--- NOTE | 2020-08-26 20:55 | NUR ---
pt refused Colace, ocean spray, miralax, Senokot, Diprolene cream & Voltaren gel, fsbs 179 no ss insulin required
[2020-08-26] MEDS: FENOFIBRATE, MICRO 67 MG (LOFIBRA) CAPSULE PO SCH (20:57)
[2020-08-26] MEDS: SPIRONOLACTONE 25 MG (ALDACTONE) TAB PO SCH (20:57)
[2020-08-26] MEDS: QUEtiapine 25 MG (SEROquel) TAB IMMEDIATE RELEASE PO SCH (20:57)
[2020-08-26] MEDS: MIRTAZAPINE 15 MG (REMERON) TAB PO SCH (20:57)
[2020-08-26] MEDS: MONTELUKAST 10 MG (SINGULAIR) TAB PO SCH (20:58)
[2020-08-26] MEDS ORDERED: RT-ALBUTEROL/IPRATROPIUM 3 ML (DUONEB) VIAL IH SCH (21:00)
[2020-08-26] MEDS: SALINE NASAL SPRAY (OCEAN) 45 ML BTL SCH (21:02)
[2020-08-26] MEDS: LATANOPROST 0.005% (XALATAN) OPHTH SOLN 2.5 ML OU SCH (21:04)
[2020-08-26] MEDS: inSUlin ASPART (NovoLOG) 1 UNIT/0.01 ML (CHARGE PER UNIT) SC SCH (21:06)
[2020-08-26] MEDS: SENNA W/DOCUSATE (SENOKOT S) TABLET PO SCH (21:06)
[2020-08-26] MEDS: polyethylene glycoL POWDER 17 GM (MIRALAX) PACK PO SCH (21:06)
[2020-08-26] MEDS: DOCUSATE SODIUM 100 MG (COLACE) CAP PO SCH (21:06)
[2020-08-26] MEDS: DICLOFENAC 1% GEL 100 GM (VOLTAREN) TUBE TP SCH (21:07)
[2020-08-26] MEDS: BETAMETHASONE DIPRO (AUGMENTED) 0.05% CREAM 15 GM TOP SCH (21:07)
[2020-08-26] MEDS: RIFAMPIN 150 MG (RIFADIN) CAP PO SCH (22:10)
[2020-08-27] MEDS: ceFAZolin 2 GM/50 ML (PRE-MIXED) IV SCH ×3 (01:26→16:16)
[2020-08-27] MEDS: KCL 20 MEQ TAB (K-DUR) PO SCH (05:12)
[2020-08-27 05:16] VITALS: BP 120/56
[2020-08-27] MEDS: inSUlin ASPART (NovoLOG) 1 UNIT/0.01 ML (CHARGE PER UNIT) SC SCH ×4 (06:00→21:16)
[2020-08-27 06:08] LABS: BASOPHILS # (AUTO) 0.1 10^3/uL (0.0-0.1); BASOPHILS % (AUTO) 1 % (0-10); EOSINOPHILS # (AUTO) 0.4 10^3/uL (0.0-0.3); EOSINOPHILS % (AUTO) 4 % (0-10); HEMATOCRIT 31 % (35-52); HEMOGLOBIN 9.4 g/dL (11.5-16.0); LYMPHOCYTES # (AUTO) 2.1 10^3/uL (1.0-4.0); LYMPHOCYTES % (AUTO) 20 % (12-44); MEAN CORPUSCULAR HEMOGLOBIN 27 pg (25-34); MEAN CORPUSCULAR HGB CONC 30 g/dL (32-36); MEAN CORPUSCULAR VOLUME 90 fL (80-99); MEAN PLATELET VOLUME 9.2 fL (9.0-12.2); MONOCYTES # (AUTO) 1.1 10^3/uL (0.0-1.0); MONOCYTES % (AUTO) 11 % (0-12); NEUTROPHILS # (AUTO) 6.4 10^3/uL (1.8-7.8); NEUTROPHILS % (AUTO) 61 % (42-75); PLATELET COUNT 326 10^3/uL (130-400); WHITE BLOOD COUNT 10.4 10^3/uL (4.3-11.0)
[2020-08-27] MEDS: CALCIUM CARBONATE 600 MG (CALCARB) TAB PO SCH (06:09)
[2020-08-27] MEDS: RIFAMPIN 150 MG (RIFADIN) CAP PO SCH ×3 (06:09→22:21)
[2020-08-27] MEDS: MULTIVIT W/MINERALS TAB (THERAGRAN M) PO SCH (06:10)
[2020-08-27] MEDS: VITAMIN D3 25 MCG (1,000 UNITS) TABLET PO SCH (06:10)
[2020-08-27] MEDS: predniSONE 10 MG TAB PO SCH (06:11)
[2020-08-27] MEDS: FUROSEMIDE 40 MG (LASIX) TAB PO SCH (06:11)
[2020-08-27 06:15] LABS: CHLORIDE 103 MMOL/L (98-107); POTASSIUM 5.5 MMOL/L (3.6-5.0); SODIUM 135 MMOL/L (135-145)
[2020-08-27 06:17] LABS: CALCIUM 10.6 MG/DL (8.5-10.1)
[2020-08-27 06:18] LABS: GLUCOSE 142 MG/DL (70-105); TOTAL PROTEIN 6.5 GM/DL (6.4-8.2)
[2020-08-27 06:19] LABS: CARBON DIOXIDE 23 MMOL/L (21-32)
[2020-08-27 06:20] LABS: BILIRUBIN,TOTAL 0.2 MG/DL (0.1-1.0)
[2020-08-27 06:21] LABS: ALKALINE PHOSPHATASE 98 U/L (40-136); CREATININE SERUM 0.73 MG/DL (0.60-1.30); GFR ESTIMATED > 60
[2020-08-27 06:22] LABS: BUN/CREATININE RATIO 10
[2020-08-27 06:24] LABS: ALANINE AMINOTRANSFERASE 6 U/L (0-55)
[2020-08-27] MEDS: RT-BUDESONIDE NEBS 0.5 MG/2ML (PULMICORT) AMP IH SCH ×2 (07:06→20:23)
[2020-08-27] MEDS: UMECLIDINIUM BROMIDE (INCRUSE ELLIPTA) 7'S IH SCH (07:06)
[2020-08-27] MEDS: ONDANSETRON 4 MG (ZOFRAN) ORAL DISSOLVE TAB PO PRN (07:08)
--- NOTE | 2020-08-27 07:21 | Progress Note - Surgery ---
BHARATH RUELAS,MED STUDENT 08/27/20 0721: Subjective Date Seen by a Provider: Aug 27, 2020 Time Seen by a Provider: 07:01 Subjective/Events-last exam Patient seen and examined this morning. She states she has been nauseous this morning since taking her medications and eating breakfast. She also feels like her stomach is hard and bloated. She states her stools are also orange and she is still having some diarrhea. She denies chest pain, shortness or breath, fever or chills. Review of Systems General: No Chills HEENT: Head Aches Pulmonary: No Dyspnea Cardiovascular: No: Chest Pain, Edema Gastrointestinal: Nausea, Abdominal Pain, Diarrhea, Other (orange colored stools); No: Vomiting Objective Exam Vital Signs Date Time Temp Pulse Resp B/P (MAP) Pulse Ox O2 Delivery O2 Flow Rate FiO2 08/27/20 07:08 98 Nasal Cannula 2.00 08/27/20 05:16 36.0 86 18 120/56 (77) 97 Nasal Cannula 2.00 08/26/20 21:00 Nasal Cannula 2.00 08/26/20 19:46 Nasal Cannula 2.00 08/26/20 16:16 36.0 98 16 100/63 (75) 98 Nasal Cannula 2.00 08/26/20 15:38 36.4 98 16 100/63 98 Nasal Cannula 2.00 I & O 08/27/20 07:00 Intake Total 1200 ml Balance 1200 ml Capillary Refill : Less Than 3 Seconds General Appearance: No Apparent Distress, WD/WN, Chronically ill, Obese HEENT: PERRL/EOMI Neck: Supple Respiratory: No Accessory Muscle Use, No Respiratory Distress Cardiovascular: Regular Rate, Rhythm, No Edema, Normal Peripheral Pulses Gastrointestinal: soft, distended (minimal), tenderness (diffuse, with palpation) Extremity: No Calf Tenderness, No Pedal Edema Neurologic/Psychiatric: Alert, Normal Mood/Affect Skin: Normal Color, Warm/Dry, Other (right DM foot wound) Lymphatic: No Adenopathy Results Lab Laboratory Tests 08/26/20 15:42: Glucometer 206H 08/26/20 20:31: Glucometer 179H 08/27/20 06:00: White Blood Count 10.4, Red Blood Count 3.43L, Hemoglobin 9.4L, Hematocrit 31L, Mean Corpuscular Volume 90, Mean Corpuscular Hemoglobin 27, Mean Corpuscular Hemoglobin Concent 30L, Red Cell Distribution Width 17.9H, Platelet Count 326, Mean Platelet Volume 9.2, Immature Granulocyte % (Auto) 3, Neutrophils (%) (Auto) 61, Lymphocytes (%) (Auto) 20, Monocytes (%) (Auto) 11, Eosinophils (%) (Auto) 4, Basophils (%) (Auto) 1, Neutrophils # (Auto) 6.4, Lymphocytes # (Auto) 2.1, Monocytes # (Auto) 1.1H, Eosinophils # (Auto) 0.4H, Basophils # (Auto) 0.1, Immature Granulocyte # (Auto) 0.3H, Sodium Level 135, Potassium Level 5.5H, Chloride Level 103, Carbon Dioxide Level 23, Anion Gap 9, Blood Urea Nitrogen 7, Creatinine 0.73, Estimat Glomerular Filtration Rate > 60, BUN/Creatinine Ratio 10, Glucose Level 142H, Calcium Level 10.6H, Corrected Calcium 11.4H, Total Bilirubin 0.2, Aspartate Amino Transf (AST/SGOT) 17, Alanine Aminotransferase (ALT/SGPT) 6, Alkaline Phosphatase 98, Total Protein 6.5, Albumin 3.0L 08/27/20 06:05: Glucometer 169H Assessment/Plan Assessment/Plan Assessment/Plan Nausea- likely multifactorial, symptomatic control, consider zofran if needed, encourage oral hydration Diarrhea- likely due to half-way antibiotic use, can consider C.Diff stool testing and abdominal xray Hyperkalemia Hypercalcemia Osteomyelitis L2-L3- continue long-term antibiotics DM no surgical intervention needed at this time Clinical Quality Measures DVT/VTE Risk/Contraindication: Risk Factor Score Per Nursin RFS Level Per Nursing on Admit: 4+=Very High EKATERINA EID DO 08/27/20 0832: Subjective Subjective/Events-last exam Patient nauseated after taking medication. Abdomen feels bloated. Having diarrhea. Ate breakfast no issue. Denies fever sweats chills shortness of breath or chest pain. Objective Exam General Appearance: No Apparent Distress, WD/WN, Chronically ill, Obese HEENT: PERRL/EOMI, Normal ENT Inspection Neck: Non Tender, Supple Respiratory: Chest Non Tender, No Accessory Muscle Use, No Respiratory Distress Cardiovascular: Regular Rate, Rhythm, No JVD Gastrointestinal: distended (minimal), tenderness (diffuse, with palpation), hernia (reducible umiblical) Extremity: Normal Inspection, No Calf Tenderness Neurologic/Psychiatric: Alert, Oriented x3, Normal Mood/Affect Skin: Normal Color, Warm/Dry Lymphatic: No Adenopathy Assessment/Plan Assessment/Plan Assessment/Plan Nausea- likely multifactorial, symptomatic control, consider zofran if needed, encourage oral hydration Diarrhea- likely due to half-way antibiotic use, can consider C.Diff stool testing Hyperkalemia Hypercalcemia Osteomyelitis L2-L3- continue long-term antibiotics DM umbilical hernia -reducible no pain/reducible defer to do elective diet as tolerates anti-nausea meds for symptomatic control get KUB no surgical intervention needed at this time Supervisory-Addendum Brief Verification & Attestation Participated in pt care: history, MDM, physical Personally performed: exam, history, MDM, supervision of care Care discussed with: Medical Student Procedures: n/a Results interpretation: Verified all documentation Verification and Attestation of Medical Student E/M Service A medical student performed and documented this service in my presence. I reviewed and verified all information documented by the medical student and made modifications to such information, when appropriate. I personally performed the physical exam and medical decision making. Ekaterina Eid, Aug 27, 2020,08:30 BHARATH RUELAS,MED STUDENT Aug 27, 2020 07:21 EKATERINA EID DO Aug 27, 2020 08:32
[2020-08-27] MEDS: PROCHLORPERAZINE 10 MG TAB (COMPAZINE) PO PRN (08:09)
[2020-08-27] MEDS ORDERED: NON-FORMULARY MEDICATION 1 EA EA (Alendronate Sodium 70 MG) PO SCH (09:00)
[2020-08-27] MEDS ORDERED: ENOXAPARIN 40 MG/0.4 ML (LOVENOX) SYR SQ SCH (09:00)
[2020-08-27] MEDS ORDERED: CALCIUM CARBONATE 400 MG PO SCH (09:00)
--- NOTE | 2020-08-27 09:00 | Occupational Ther Daily Note ---
OT Current Status-Daily Note Subjective Pt alert, sitting in recliner. Pt states that she feels nauseous, nrsg reported that she had nausea medication, nrsg checked if pt able to receive more medication. Pt agrees to therapy after encouragement. Mental Status/Objective Patient Orientation: Person, Place, Time, Situation Attachments: IV ADL-Treatment Due to nausea and fatigue, pt declines shower. Agrees to sponge bath and changing clothing. After gathering supplies, pt able to complete bathing sitting/standing at sink with SBA. Completed oral care sitting at sink, independent. After set up, pt able to complete upper body dressing by self and lower body dressing with SBA while standing to hike over hips. After set up, pt able to don/doff footwear by self. Pt takes increased time to complete tasks due to multiple breaks from fatigue, nausea and physician rounding. Pt able to transfer to toilet with SBA. Completed hygiene sitting on toilet then LOB while hiking pants over hips required CGA to stabilize. Educated pt on ARU description/expectations, energy conservation techniques and rehab meeting. Pt acknowledged understanding verbally. After session, pt lying in bed with call light/phone in reach. All needs met in room. Therapy Code Descriptions/Definitions Functional [place] Measure: 0=Not Assessed/NA 4=Minimal Assistance 1=Total Assistance 5=Supervision or Setup 2=Maximal Assistance 6=Modified [place] 3=Moderate Assistance 7=Complete IndependenceSCALE: Activities may be completed with or without assistive devices. 5-Fkycapgxtz-xirulqu completes the activity by him/herself with no assistance from a helper. 5-Set-up or Clean-up Assistance-helper sets up or cleans up; patient completes activity. [place] assists only prior to or following the activity. 4-Supervision or Touching Assistance-helper provides verbal cues and/or touching/steadying and/or contact guard assistance as patient completes activity. Assistance may be provided throughout the activity or intermittently. 3-Partial/Moderate Assistance-helper does LESS THAN HALF the effort. [place] lifts, holds or supports trunk or limbs, but provides less than half the effort. 2-Substantial/Maximal Assistance-helper does MORE THAN HALF the effort. [place] lifts or holds trunk or limbs and provides more than half the effort. 4-Spmcgbbtu-xsgjlh does ALL the effort. Patient does none of the effort to complete the activity. Or, the assistance of 2 or more helpers is required for the patient to complete the activity. If activity was not attempted, code reason: 7-Patient Refused. 9-Not Applicable-not attempted and the patient did not perform the activity before the current illness, exacerbation or injury. 10-Not Attempted due to Environmental Limitations-(lack of equipment, weather restraints, etc.). 88-Not Attempted due to Medical Conditions or Safety Concerns. Eating (QC): 6 (Pt able to set up own meal and use regular utensil to eat.) Oral Hygiene (QC): 6 Bathing Location: L Arm, R Arm, L Upper Leg, R Upper Leg, L Lower Leg (including foot), R Lower Leg (including foot), Chest, Abdomen, Buttocks, Perineal Area Shower/Bathe Self (QC): 4 Upper Body Dressing (QC): 5 Lower Body Dressing (QC): 4 On/Off Footwear: 5 Toileting Hygiene (QC): 4 Toilet Transfer (QC): 4 OT Mcfp Goals Instructor Weaving Goals Time Frame: Sep 19, 2020 Eating (QC): 6 Oral Hygiene (QC): 6 Toileting Hygiene (QC): 6 Shower/Bathe Self (QC): 6 Upper Body Dressing (QC): 6 Lower Body Dressing (QC): 6 On/Off Footwear (QC): 6 Additional Goals: 1-Demonstrate ADL Tasks, 2-Verbalize Understanding, 3- ImproveStrength/[place] 1=Demonstrate adherence to instructed precautions during ADL tasks. 2=Patient will verbalize/demonstrate understanding of assistive devices/modifications for ADL. 3=Patient will improve strength/tolerance for activity to enable patient to perform ADL's. OT Education/Plan Problem List/Assessment Assessment: Decreased Activ Tolerance, Decreased UE Strength, Impaired Funct Balance, Impaired Self-Care Skills Discharge Recommendations Plan/Recommendations: Continue POC Treatment Plan/Plan of Care Patient would benefit from OT for education, treatment and training to promote independence in ADL's, mobility, safety and/or upper extremity function for ADL's. Plan of Care: ADL Retraining, Functional Mobility, Group Exercise/Act as Ind, UE Funct Exercise/Act Treatment Duration: Sep 19, 2020 Frequency: At least 5 of 7 days/Wk (IRF) Estimated Hrs Per Day: 1.5 hours per day Agreement: Yes Rehab Potential: Fair Time/GCodes Start Time: 07:30 Stop Time: 09:00 Total Time Billed (hr/min): 90 Billed Treatment Time 1 visit-ADL 5 (75 min) FA 1 (15 min) MIKA SUE Aug 27, 2020 09:00
--- NOTE | 2020-08-27 09:00 | NUR ---
DRS. RUBIO AND IVANA HERE TO SEE PATIENT. CONTINUED NAUSEA. STATES COMPAZINE SEEMS TO HELP MORE THAN ZOFRAN.
--- NOTE | 2020-08-27 09:02 | PM&R Progress Note ---
Subjective HPI/CC On Admission Date Seen by Provider: Aug 27, 2020 Time Seen by Provider: 10:00 Subjective/Events-last exam Potassium 5.5 stopping potassium supplement, continuing Spironolactone Zofran and Compazine helping with nausea Appreciate Dr. Snyder and Dr. Eid Monitoring diarrhea Checked meds and labs Conferred with RN Reviewed therapy notes Review of Systems General: Fatigue, Malaise Neurological: Weakness Objective Exam Vital Signs Vital Signs Date Time Temp Pulse Resp B/P (MAP) Pulse Ox O2 Delivery O2 Flow Rate FiO2 08/27/20 20:24 96 Nasal Cannula 2.00 08/27/20 17:34 35.8 100 20 95/60 (72) Capillary Refill : Less Than 3 Seconds General Appearance: No Apparent Distress, WD/WN, Chronically ill, Obese HEENT: PERRL/EOMI, Normal ENT Inspection Neck: Non Tender, Supple Respiratory: Chest Non Tender, No Accessory Muscle Use, No Respiratory Distress Cardiovascular: Regular Rate, Rhythm, No JVD Gastrointestinal: Normal Bowel Sounds, No Organomegaly, No Pulsatile Mass, Non Tender, Soft Back: Normal Inspection, No CVA Tenderness, Decreased Range of Motion Extremity: Normal Inspection, No Calf Tenderness Neurologic/Psychiatric: Alert, Oriented x3, Normal Mood/Affect Skin: Normal Color, Warm/Dry Lymphatic: No Adenopathy Results/Procedures Lab Laboratory Tests 08/27/20 06:00 Patient resulted labs reviewed. FIM Transfers Therapy Code Descriptions/Definitions Functional [place] Measure: 0=Not Assessed/NA 4=Minimal Assistance 1=Total Assistance 5=Supervision or Setup 2=Maximal Assistance 6=Modified [place] 3=Moderate Assistance 7=Complete IndependenceSCALE: Activities may be completed with or without assistive devices. 4-Halegfcexf-yfzzsvb completes the activity by him/herself with no assistance from a helper. 5-Set-up or Clean-up Assistance-helper sets up or cleans up; patient completes activity. [place] assists only prior to or following the activity. 4-Supervision or Touching Assistance-helper provides verbal cues and/or touching/steadying and/or contact guard assistance as patient completes activity. Assistance may be provided throughout the activity or intermittently. 3-Partial/Moderate Assistance-helper does LESS THAN HALF the effort. [place] lifts, holds or supports trunk or limbs, but provides less than half the effort. 2-Substantial/Maximal Assistance-helper does MORE THAN HALF the effort. [place] lifts or holds trunk or limbs and provides more than half the effort. 5-Zjfsqybnd-lyydic does ALL the effort. Patient does none of the effort to complete the activity. Or, the assistance of 2 or more helpers is required for the patient to complete the activity. If activity was not attempted, code reason: 7-Patient Refused. 9-Not Applicable-not attempted and the patient did not perform the activity before the current illness, exacerbation or injury. 10-Not Attempted due to Environmental Limitations-(lack of equipment, weather restraints, etc.). 88-Not Attempted due to Medical Conditions or Safety Concerns. Roll Left to Right (QC): 6 Sit to Lying (QC): 4 Sit to Stand (QC): 4 Chair/Jpa-ng-Ninhw Xfer(QC): 4 Car Transfer (QC): 4 Gait Training Does the Patient Walk?: Yes Walk 10 feet (QC): 4 Walk 50 ft with 2 Turns(QC): 4 Walk 150 ft (QC): 88 Walking 10ft/uneven surface-QC: 4 Gait Assistive Device: FWW Wheelchair Training Does the Pt Use a Wheelchair?: Yes Distance: 75' Wheel 50 ft with 2 turns (QC): 4 Wheel 150 ft (QC): 88 Type of Wheelchair: Manual Stair Training #of Steps: 1 1 Step (curb) (QC): 4 4 Steps (QC): 88 12 Steps (QC): 88 Balance Picking up an Object (QC): 3 ADL-Treatment Eating (QC): 6 (pt indicates no difficulties with feeding) Oral Hygiene (QC): 7 Shower/Bathe Self (QC): 7 Upper Body Dressing (QC): 7 Lower Body Dressing (QC): 7 On/Off Footwear (QC): 7 Toileting Hygiene (QC): 7 Assessment/Plan Assessment and Plan Assess & Plan/Chief Complaint Assessment: Myopathy Discitis on Ancef until 09/03/20 DM Right DM foot ulcer HTN HLP O2 dependent MARY ANN PLan: DM management IRF protocol Pain management 08/27/20: Stop Potassium due to level of 5.5 Use zofran and Compazine Appreciate Dr. Snyder consultation Appreciated Dr. Eid consultation Monitor diarrhea (1) Myopathy (2) Diabetic foot ulcer (3) Diabetes (4) Chronic pain (5) Nausea (6) MARY ANN (obstructive sleep apnea) (7) Oxygen dependent (8) ЕЛЕНА Best DO Aug 27, 2020 09:02
[2020-08-27] MEDS: PANTOPRAZOLE 40 MG (PROTONIX) TAB PO SCH (09:13)
[2020-08-27] MEDS: LACTOBACILLUS ACIDOPHILUS (PROBIOTIC) CAPSULE PO SCH ×3 (09:13→21:09)
[2020-08-27] MEDS: lisINopril 5 MG (PRINIVIL) TABLET PO SCH (09:14)
[2020-08-27] MEDS: MELOXICAM 7.5 MG (MOBIC) TABLET PO SCH (09:14)
[2020-08-27] MEDS: SPIRONOLACTONE 25 MG (ALDACTONE) TAB PO SCH ×2 (09:14→21:09)
[2020-08-27] MEDS: PREGABALIN 100 MG (LYRICA) CAPSULE PO SCH ×2 (09:14→21:10)
--- NOTE | 2020-08-27 09:14 | PM&R Progress Note ---
Objective Exam Vital Signs Vital Signs Date Time Temp Pulse Resp B/P (MAP) Pulse Ox O2 Delivery O2 Flow Rate FiO2 08/27/20 07:08 98 Nasal Cannula 2.00 08/27/20 05:16 36.0 86 18 120/56 (77) Capillary Refill : Less Than 3 Seconds General Appearance: No Apparent Distress, WD/WN, Chronically ill, Obese HEENT: PERRL/EOMI, Normal ENT Inspection Neck: Non Tender, Supple Respiratory: Chest Non Tender, No Accessory Muscle Use, No Respiratory Distress Cardiovascular: Regular Rate, Rhythm, No JVD Gastrointestinal: Normal Bowel Sounds, No Organomegaly, No Pulsatile Mass, Non Tender, Soft Back: Normal Inspection, No CVA Tenderness, Decreased Range of Motion Extremity: Normal Inspection, No Calf Tenderness Neurologic/Psychiatric: Alert, Oriented x3, Normal Mood/Affect Skin: Normal Color, Warm/Dry Lymphatic: No Adenopathy Results/Procedures Lab Laboratory Tests 08/27/20 06:00 Patient resulted labs reviewed. FIM Transfers Therapy Code Descriptions/Definitions Functional [place] Measure: 0=Not Assessed/NA 4=Minimal Assistance 1=Total Assistance 5=Supervision or Setup 2=Maximal Assistance 6=Modified [place] 3=Moderate Assistance 7=Complete IndependenceSCALE: Activities may be completed with or without assistive devices. 8-Ocwtwutqps-tftijnh completes the activity by him/herself with no assistance from a helper. 5-Set-up or Clean-up Assistance-helper sets up or cleans up; patient completes activity. [place] assists only prior to or following the activity. 4-Supervision or Touching Assistance-helper provides verbal cues and/or touching/steadying and/or contact guard assistance as patient completes acti vity. Assistance may be provided throughout the activity or intermittently. 3-Partial/Moderate Assistance-helper does LESS THAN HALF the effort. [place] lifts, holds or supports trunk or limbs, but provides less than half the effort. 2-Substantial/Maximal Assistance-helper does MORE THAN HALF the effort. [place] lifts or holds trunk or limbs and provides more than half the effort. 0-Obnlqztbe-ilwhdb does ALL the effort. Patient does none of the effort to complete the activity. Or, the assistance of 2 or more helpers is required for the patient to complete the activity. If activity was not attempted, code reason: 7-Patient Refused. 9-Not Applicable-not attempted and the patient did not perform the activity before the current illness, exacerbation or injury. 10-Not Attempted due to Environmental Limitations-(lack of equipment, weather restraints, etc.). 88-Not Attempted due to Medical Conditions or Safety Concerns. Roll Left to Right (QC): 6 Sit to Lying (QC): 4 Sit to Stand (QC): 4 Chair/Ihw-dw-[place] Xfer(QC): 4 Car Transfer (QC): 4 Gait Training Does the Patient Walk?: Yes Walk 10 feet (QC): 4 Walk 50 ft with 2 Turns(QC): 4 Walk 150 ft (QC): 88 Walking 10ft/uneven surface-QC: 4 Gait Assistive Device: FWW Wheelchair Training Does the Pt Use a Wheelchair?: Yes Distance: 75' Wheel 50 ft with 2 turns (QC): 4 Wheel 150 ft (QC): 88 Type of Wheelchair: Manual Stair Training #of Steps: 1 1 Step (curb) (QC): 4 4 Steps (QC): 88 12 Steps (QC): 88 Balance Picking up an Object (QC): 3 ADL-Treatment Eating (QC): 6 (pt indicates no difficulties with feeding) Oral Hygiene (QC): 7 Shower/Bathe Self (QC): 7 Upper Body Dressing (QC): 7 Lower Body Dressing (QC): 7 On/Off Footwear (QC): 7 Toileting Hygiene (QC): 7 Assessment/Plan Assessment and Plan Assess & Plan/Chief Complaint Assessment: Myopathy Discitis on Ancef until 09/03/20 DM Right DM foot ulcer HTN HLP O2 dependent MARY ANN PLan: DM management IRF protocol Pain management (1) Myopathy (2) Diabetic foot ulcer (3) Diabetes (4) Chronic pain (5) Nausea (6) MARY ANN (obstructive sleep apnea) (7) Oxygen dependent (8) Discitis ЕЛЕНА CRUZ DO Aug 27, 2020 09:14
[2020-08-27] MEDS: LORATADINE (CLARITIN) 10 MG TAB PO SCH (09:15)
[2020-08-27] MEDS: QUEtiapine 25 MG (SEROquel) TAB IMMEDIATE RELEASE PO SCH ×2 (09:15→21:09)
[2020-08-27] MEDS: PENTOXIFYLLINE ER 400 MG (TRENtal) TAB PO SCH ×3 (09:15→21:09)
[2020-08-27] MEDS: toPIRamate 25 MG (TOPAMAX) TAB PO SCH (09:15)
[2020-08-27] MEDS: polyethylene glycoL POWDER 17 GM (MIRALAX) PACK PO SCH ×2 (09:20→21:28)
[2020-08-27] MEDS: DOCUSATE SODIUM 100 MG (COLACE) CAP PO SCH ×2 (09:20→21:28)
[2020-08-27] MEDS: SENNA W/DOCUSATE (SENOKOT S) TABLET PO SCH ×2 (09:21→21:28)
[2020-08-27] MEDS: BRIMONIDINE 0.2% (ALPHAGAN) OPHTH SOLN 5 ML BTL OU SCH (09:23)
[2020-08-27] MEDS: SALINE NASAL SPRAY (OCEAN) 45 ML BTL SCH ×2 (09:23→21:27)
[2020-08-27] MEDS: DICLOFENAC 1% GEL 100 GM (VOLTAREN) TUBE TP SCH ×2 (09:23→21:28)
[2020-08-27] MEDS: FLUTICASONE NASAL SPRAY (FLONASE) 16 GM BTL NS SCH ×2 (09:23→21:20)
--- NOTE | 2020-08-27 09:57 | Physical Therapy Daily Note ---
PT Daily Note-Current Subjective Pt. in bed. States she slept well , has pain at 5/10 low back , agrees to Rx but is a little overwhelmed right now. Time was dedicated to explaining the purpose and scheduling of therapies and unit practices etc. Pt. seemed much more at ease after discussion and answering her questions. Pain Numeric Pain Scale: 4 Location: Medial Location Body Site: Back Pain Description: Ache Mental Status Patient Orientation: Normal For Age Attachments: Oxygen (2L) Transfers SCALE: Activities may be completed with or without assistive devices. 1-Xtgbqwzsvb-cxmikjj completes the activity by him/herself with no assistance fr om a helper. 5-Set-up or Clean-up Assistance-helper sets up or cleans up; patient completes activity. [place] assists only prior to or following the activity. 4-Supervision or Touching Assistance-helper provides verbal cues and/or touching/steadying and/or contact guard assistance as patient completes activity. Assistance may be provided throughout the activity or intermittently. 3-Partial/Moderate Assistance-helper does LESS THAN HALF the effort. [place] lifts, holds or supports trunk or limbs, but provides less than half the effort. 2-Substantial/Maximal Assistance-helper does MORE THAN HALF the effort. [place] lifts or holds trunk or limbs and provides more than half the effort. 4-Ucjgtysqq-uibjeu does ALL the effort. Patient does none of the effort to complete the activity. Or, the assistance of 2 or more helpers is required for the patient to complete the activity. If activity was not attempted, code reason: 7-Patient Refused. 9-Not Applicable-not attempted and the patient did not perform the activity before the current illness, exacerbation or injury. 10-Not Attempted due to Environmental Limitations-(lack of equipment, weather restraints, etc.). 88-Not Attempted due to Medical Conditions or Safety Concerns. Roll Left & Right (QC): 5 Sit to Lying (QC): 5 Sit to Stand (QC): 5 Chair/Lkn-gr-Ldaxk Xfer(QC): 5 pt. was instructed in log roll technique Weight Bearing Right Lower Extremity: Right Full Weight Bearing Left Lower Extremity: Left Full Weight Bearing Gait Training Does the Patient Walk?: Yes Walk 10 feet (QC): 5 Walk 50 ft with 2 Turns(QC): 5 Gait Persons Needed: 1 Gait Assistive Device: FWW pt. c/o fatigue and required rest breaks, states her legs feels "rubbery" No LOB, good use of AD, assist for portable O2 required, instruction detailed for chair approaches and turns Exercises Supine Ex: Ankle pumps, Quad Set, Rolling, Glut sets, Heel Slides, Short Arc Quads, Scooting, Straight leg raise (x4 bilat), Hip abd/add Supine Reps: 15 Seated Therapy Exercises: Ankle pumps, Sit to stand, Long arc quads, Hip flexion, Hip abd/add Seated Reps: 12 Assessment Current Status: Good Progress up in recliner after Rx with valle and phone at hand PT Short Term Goals Short Term Goals Time Frame: Sep 02, 2020 Sit to lyin Lying to sitting on side of be: 6 Sit to stand: 5 Walk 50 feet with two turns: 4 Walk 150 feet: 4 PT Nursing Home Goals Gang Supervisor Goals PT Gang Supervisor Goals Time Frame: Sep 16, 2020 Roll Left & Right (QC): 6 Sit to Lying (QC): 6 Lying-Sitting on Side/Bed(QC): 6 Sit to Stand (QC): 6 Chair/Qgp-mc-Fnzdm Xfer(QC): 6 Toilet Transfer (QC): 6 Car Transfer (QC): 6 Does the Patient Walk: Yes Walk 10 feet (QC): 6 Walk 50ft with 2 Turns (QC): 6 Walk 150 ft (QC): 5 Walking 10ft on Uneven Surface: 5 1 Step (curb) (QC): 6 4 Steps (QC): 4 12 Steps (QC): 4 Picking up an Object (QC): 4 Does the Pt use WC or Scooter?: Yes Wheel 50 feet with 2 turns (QC: 6 Type: Manual Wheel 150 feet: 6 Type: Manual PT Plan Treatment/Plan Treatment Plan: Continue Plan of Care Treatment Plan: Bed Mobility, Education, Functional Activity [place], Functional Strength, Group Therapy, Gait, Safety, Therapeutic Exercise, Transfers Treatment Duration: Sep 16, 2020 Frequency: At least 5 of 7 days/Wk (IRF) Estimated Hrs Per Day: 1.5 hours per day Patient and/or Family Agrees t: Yes Safety Risks/Education Patient Education: Gait Training, Transfer Techniques, Correct Positioning, Disease Process, Safety Issues Teaching Recipient: Patient Teaching Methods: Demonstration, Discussion Response to Teaching: Verbalize Understanding, Return Demonstration, Reinforcement Needed Time/GCodes Time In: 900 Time Out: 1000 Total Billed Treatment Time: 60 Total Billed Treatment 1,GT15m,FA25m,EX20m SOFIA MEEK PRESCHOOL ASSOCIATE TEACHER Aug 27, 2020 09:57
[2020-08-27] MEDS: PARoxetine 20 MG (PAXIL) TAB PO SCH (10:03)
[2020-08-27] MEDS: ALPRAZolam 1 MG (XANAX) TAB PO PRN (10:03)
--- NOTE | 2020-08-27 11:00 | NUR ---
KUB DONE. DIARRHEA STOOL [place] IN [place]. STATES HAS HAD NAUSEA AND DIARRHEA SINCE ADMISSION TO [facility].
--- NOTE | 2020-08-27 11:29 | ST Cognitive Linguistic Eval ---
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 Magallanes Medical History Pertinent Medical History: DM Reviewed History: Yes Social History Current Living Status: Spouse (& other family members) Speech PLF-Current Status Prior Level of Function Patient lives at home with her and other family where she is assisted with her daily needs. Subjective Patient was pleasant and cooperative with the cognitive assessment. Language Eval: Auditory Comprehends Simple Yes/No Ques: Functional Indent/Objects Multiple Garcia: Functional Ident/Pics in Multiple Garcia: Functional Follows 1-Step Commands: Functional Follows Complex Directions: Functional Follows General Conversations: Functional Language Eval: Verbal Language Completes Spontaneous Greeting: Functional Produces Auto, Serial Info: Functional Imitates Simple Words/Phrases: Functional Word Finding: Functional Requests Basic Needs: Functional States Basic Personal Info: Functional Expresses Complex Ideas: Functional Objective Cognitive Domain Attention: WNL Memory: WNL Problem Solving: Functional Executive Functions: WNL Visuospatial Skills: WNL Composite Severity Rating: WNL Clock Drawing Severity Rating: WNL Objective Formal/Standardized Tests [facility] Mental Status ([facility]) Results 28/30, within normal range of function Oral Motor/Speech Production Within Normal Limits Impression Patient is a pleasant 55 y/o female who was 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 Patient was given the SLUMS at bedside with a score of 28/30 obtained. The SLUMS score is within normal range of function and does not indicate a need for further ST services. Speech Patient Assess Expression of Ideas/Wants: Expression (4) Understanding Verbal Content: Understands (4) Brief Interview-Mental Status: Yes Repetition of Three Words: Three (3) Temporal Orientation: Year: Correct (3) Temporal Orientation: Month: Accurate within 5 days(2) Temporal Orientation: Day: Correct (1) Recall : Wear to say "Sock": Yes,after cueing (1) Recall : Color: Yes, no cue required (2) Recall : Bed: Yes, no cue required (2) Memory/Recall Ability: Current season, That he or she is in a hsp/hsp unit Speech-Plan Patient/Family Goals Patient/Family Goals: Patient plans on returning to her home where she lives with family. Treatment Plan Speech Therapy Treatment Plan: Discontinue ST Treatment Duration: Aug 27, 2020 Frequency: 1 time per week Estimated Hrs Per Day: .25 hour per day Rehab Potential: Fair Barriers to Learning: Patient's health issues Pt/Family Agrees to Plan: Yes Safety Risks/Education Teaching Recipient: Patient Teaching Methods: Discussion Response to Teaching: Verbalize Understanding Education Topics Provided: Safety within her room and communication of wants/needs Time Speech Therapy Time In: 11:00 Speech Therapy Time Out: 11:15 Total Billed Time: 15 Billed Treatment Time 1, JAMARI Clemente Aug 27, 2020 11:29
[2020-08-27] MEDS ORDERED: PATIENT MAY USE OWN MED,SINGLE MED PO SCH (11:30)
[2020-08-27] MEDS ORDERED: NAPROXEN 250 MG (NAPROSYN) TABLET PO PRN (12:30)
--- NOTE | 2020-08-27 12:36 | Diagnostic Imaging Report ---
INDICATION: Nausea and diarrhea. TIME OF EXAM: 10:53 a.m. FINDINGS: There are surgical clips in right upper quadrant. No free air is identified. There is some gaseous distended bowel loops in the central abdomen. There are scattered air-fluid levels in the right abdomen. There is moderate gaseous distention to the stomach. IMPRESSION: Nonspecific bowel gas pattern. There are areas of gaseous distended bowel with scattered air-fluid levels present. Continued progress films could be obtained. Dictated by: Dictated on workstation # [id number]
--- NOTE | 2020-08-27 13:24 | Physical Therapy Daily Note ---
PT Daily Note-Current Subjective Pt. in bed after lunch and states she is tired. Agrees to Rx. Describes her home situation and use of O2 with extended O2 tubing Pain Numeric Pain Scale: 5-Moderate Pain Location: Medial Location Body Site: Back Pain Description: Ache Mental Status Patient Orientation: Normal For Age Attachments: Oxygen (2L), Other-See Comments (mask while out of room) Transfers SCALE: Activities may be completed with or without assistive devices. 8-Kyzvhbohrm-kbrvtti completes the activity by him/herself with no assistance from a helper. 5-Set-up or Clean-up Assistance-helper sets up or cleans up; patient completes activity. [place] assists only prior to or following the activity. 4-Supervision or Touching Assistance-helper provides verbal cues and/or touching/steadying and/or contact guard assistance as patient completes activity. Assistance may be provided throughout the activity or intermittently. 3-Partial/Moderate Assistance-helper does LESS THAN HALF the effort. [place] lifts, holds or supports trunk or limbs, but provides less than half the effort. 2-Substantial/Maximal Assistance-helper does MORE THAN HALF the effort. [place] lifts or holds trunk or limbs and provides more than half the effort. 3-Dphmazpgx-euilmn does ALL the effort. Patient does none of the effort to complete the activity. Or, the assistance of 2 or more helpers is required for the patient to complete the activity. If activity was not attempted, code reason: 7-Patient Refused. 9-Not Applicable-not attempted and the patient did not perform the activity before the current illness, exacerbation or injury. 10-Not Attempted due to Environmental Limitations-(lack of equipment, weather restraints, etc.). 88-Not Attempted due to Medical Conditions or Safety Concerns. Roll Left & Right (QC): 6 Sit to Lying (QC): 6 Lying to Sitting/Side of Bed(Q: 6 Sit to Stand (QC): 5 Chair/Dyh-df-Snvqb Xfer(QC): 5 Weight Bearing Right Lower Extremity: Right Full Weight Bearing Left Lower Extremity: Left Full Weight Bearing Gait Training Does the Patient Walk?: Yes Walk 10 feet (QC): 4 Walk 50 ft with 2 Turns(QC): 4 Gait Persons Needed: 1 Gait Assistive Device: FWW gait training with emphasis on safety with extended O2 tubing while walking, pt needed instruction in turning safely and awareness of location of tubing etc Exercises Supine Ex: Bridging, Ankle pumps, Quad Set, Rolling, Glut sets, Heel Slides, Short Arc Quads, Scooting (up in bed), Hip abd/add Supine Reps: 15 Assessment Current Status: Good Progress PT Short Term Goals Short Term Goals Time Frame: Sep 02, 2020 Sit to lyin Lying to sitting on side of be: 6 Sit to stand: 5 Walk 50 feet with two turns: 4 Walk 150 feet: 4 PT Glass Technician/Installer Goals Glass Technician/Installer Goals PT [facility] Goals Time Frame: Sep 16, 2020 Roll Left & Right (QC): 6 Sit to Lying (QC): 6 Lying-Sitting on Side/Bed(QC): 6 Sit to Stand (QC): 6 Chair/Rdg-do-Wikic Xfer(QC): 6 Toilet Transfer (QC): 6 Car Transfer (QC): 6 Does the Patient Walk: Yes Walk 10 feet (QC): 6 Walk 50ft with 2 Turns (QC): 6 Walk 150 ft (QC): 5 Walking 10ft on Uneven Surface: 5 1 Step (curb) (QC): 6 4 Steps (QC): 4 12 Steps (QC): 4 Picking up an Object (QC): 4 Does the Pt use WC or Scooter?: Yes Wheel 50 feet with 2 turns (QC: 6 Type: Manual Wheel 150 feet: 6 Type: Manual PT Plan Treatment/Plan Treatment Plan: Continue Plan of Care Treatment Plan: Bed Mobility, Education, Functional Activity [place], Functional Strength, Group Therapy, Gait, Safety, Therapeutic Exercise, Transfers Treatment Duration: Sep 16, 2020 Frequency: At least 5 of 7 days/Wk (IRF) Estimated Hrs Per Day: 1.5 hours per day Patient and/or Family Agrees t: Yes Safety Risks/Education Patient Education: Gait Training, Transfer Techniques, Correct Positioning, Disease Process, Safety Issues Teaching Recipient: Patient Teaching Methods: Demonstration, Discussion Response to Teaching: Verbalize Understanding, Return Demonstration, Reinforcement Needed Time/GCodes Time In: 1300 Time Out: 1330 Total Billed Treatment Time: 30 Total Billed Treatment 1,GT15m,EX15m SOFIA MEEK PTA Aug 27, 2020 13:24
--- NOTE | 2020-08-27 13:39 | NUR ---
RD ASSESSMENT PMHx: COPD; DM; afib; HTN; HLD; MARY ANN; GERD PT INTERACTION: Pt was awake and pleasant during nutrition assessment. Pt states current appetite is not good, and has been this way for the past 2w. Note avg PO intake 50% x2meal, per chart review. Pt states trying to follow a diabetic diet at home, and has no issues with chewing/swallowing food. Pt states recent issues with nausea, vomiting, and diarrhea. Note last BM was 08/26, and pt currently on bowel regimen of colace BID; senna BID; and miralax BID, per chart review. Pt states recent 40# wt loss x6mon. Note recent 34# wt loss x7mon, per chart review. Pt states current DM management is "better now." Note unable to determine recent HbA1c, per chart review. Note presence of wound (R foot ulcer), per chart review. ABNORMAL NUTRITION-RELATED LAB VALUES LOW: alb 3.0 HIGH: K 5.5; glu 142; Ca 10.6 Est. kcal needs: 1450 kcal | 20 kcal/kg Est. Pro needs: 87 g Pro | 1.2 g Pro/kg PES STATEMENT: Inadequate oral intake (NI-2.1) related to loss of appetite | nausea | vomiting | diarrhea as evidenced by pt interview | avg PO intake 50% x2meal Inadequate protein intake (NI-5.6.1) related to increased protein needs as evidenced by presence of wound (R foot ulcer) INTERVENTION: Continue with current diet order of CHO 60g/m 3snack diet. Add Ensure HP (vanilla) to meals TID. Provides 160 kcal and 16 g Pro per serving, for perceived benefit to wound healing. Did not offer diet education on DM management at this time, as pt was about to have therapy session. Will offer diet education prior to discharge. Will continue to follow and reassess as pt needs, intake, and status change. Saul Casillas, MS RD LD
[2020-08-27] MEDS: ENOXAPARIN 40 MG/0.4 ML (LOVENOX) SYR SC SCH (16:16)
[2020-08-27 17:34] VITALS: BP 95/60
--- NOTE | 2020-08-27 19:08 | NUR ---
bedside report received from NITISH LIRIANO, assume care of pt
--- NOTE | 2020-08-27 20:09 | Wound Care Assessment ---
Wound Care Assessment Date Seen by Provider: Aug 27, 2020 Time Seen by Provider: 07:45 Chief Complaint R plantar ulcer. HPI The patient is a 55 year old female with a [place] 3 R plantar DFU, much improved by enforced bed rest of recent severe illness. Santyl dressings ordered. Will follow. Past Medical History: Admits Diabetes Type II, Admits Heart Disease (Atrial fib, HTN. COPD, MARY ANN) Smoking Status: Never a Smoker Recreational Drug Use: No Alcohol Use: Denies Use Review of Systems Pulmonary: No Dyspnea Cardiovascular: No: Chest Pain Exam Vital Signs Date Time Temp Pulse Resp B/P (MAP) Pulse Ox O2 Delivery O2 Flow Rate FiO2 08/27/20 17:34 35.8 100 20 95/60 (72) 97 Nasal Cannula 2.00 Capillary Refill : Less Than 3 Seconds General Appearance: no apparent distress Extremities: other (R plantar foot ulcer -- 0.8 x 1.0 x 0.2, base 100% slough, mod.s.s.drainage.) Results Laboratory Tests 08/26/20 20:31: Glucometer 179H 08/27/20 06:00: White Blood Count 10.4, Red Blood Count 3.43L, Hemoglobin 9.4L, Hematocrit 31L, Mean Corpuscular Volume 90, Mean Corpuscular Hemoglobin 27, Mean Corpuscular Hemoglobin Concent 30L, Red Cell Distribution Width 17.9H, Platelet Count 326, Mean Platelet Volume 9.2, Immature Granulocyte % (Auto) 3, Neutrophils (%) (Auto) 61, Lymphocytes (%) (Auto) 20, Monocytes (%) (Auto) 11, Eosinophils (%) (Auto) 4, Basophils (%) (Auto) 1, Neutrophils # (Auto) 6.4, Lymphocytes # (Auto) 2.1, Monocytes # (Auto) 1.1H, Eosinophils # (Auto) 0.4H, Basophils # (Auto) 0.1, Immature Granulocyte # (Auto) 0.3H, Sodium Level 135, Potassium Level 5.5H, Chloride Level 103, Carbon Dioxide Level 23, Anion Gap 9, Blood Urea Nitrogen 7, Creatinine 0.73, Estimat Glomerular Filtration Rate > 60, BUN/Creatinine Ratio 1 0, Glucose Level 142H, Calcium Level 10.6H, Corrected Calcium 11.4H, Total Bilirubin 0.2, Aspartate Amino Transf (AST/SGOT) 17, Alanine Aminotransferase (ALT/SGPT) 6, Alkaline Phosphatase 98, Total Protein 6.5, Albumin 3.0L 08/27/20 06:05: Glucometer 169H 08/27/20 11:50: Glucometer 237H 08/27/20 15:34: Glucometer 186H Assessment/Plan/Dx 1. Diabetic foot ulcer, R plantar foot, [place] Grade 3. 2. Atopic vasculitis L calf, with history of ulceration. 3. COPD Plan: Continue Santyl dressings. May ambulate. TERRY HEATH MD Aug 27, 2020 20:09
[2020-08-27] MEDS: MIRTAZAPINE 15 MG (REMERON) TAB PO SCH (21:09)
[2020-08-27] MEDS: MONTELUKAST 10 MG (SINGULAIR) TAB PO SCH (21:09)
[2020-08-27] MEDS: FENOFIBRATE, MICRO 67 MG (LOFIBRA) CAPSULE PO SCH (21:10)
--- NOTE | 2020-08-27 21:10 | NUR ---
fsbs 216, NovoLog 3 units given, pt refused ocean spray, Colace,, miralax, Senokot, Diprolene cream & Voltaren gel
[2020-08-27] MEDS: LATANOPROST 0.005% (XALATAN) OPHTH SOLN 2.5 ML OU SCH (21:18)
[2020-08-27] MEDS: BETAMETHASONE DIPRO (AUGMENTED) 0.05% CREAM 15 GM TOP SCH (21:28)
[2020-08-28] MEDS: ceFAZolin 2 GM/50 ML (PRE-MIXED) IV SCH ×3 (01:14→16:24)
[2020-08-28] MEDS: PROCHLORPERAZINE 10 MG TAB (COMPAZINE) PO PRN ×2 (01:57→12:43)
--- NOTE | 2020-08-28 01:57 | NUR ---
after going to bathroom pt c/o nausea, compazine 10mg given
[2020-08-28 05:16] VITALS: BP 106/64
[2020-08-28] MEDS: inSUlin ASPART (NovoLOG) 1 UNIT/0.01 ML (CHARGE PER UNIT) SC SCH ×5 (06:32→21:06)
[2020-08-28] MEDS: ONDANSETRON 4 MG (ZOFRAN) ORAL DISSOLVE TAB PO PRN ×3 (06:32→16:11)
[2020-08-28] MEDS: RIFAMPIN 150 MG (RIFADIN) CAP PO SCH ×3 (08:24→21:05)
[2020-08-28] MEDS: FUROSEMIDE 40 MG (LASIX) TAB PO SCH (08:24)
[2020-08-28] MEDS: predniSONE 10 MG TAB PO SCH (08:25)
[2020-08-28] MEDS: CALCIUM CARBONATE 600 MG (CALCARB) TAB PO SCH (08:27)
[2020-08-28] MEDS: MULTIVIT W/MINERALS TAB (THERAGRAN M) PO SCH (08:27)
[2020-08-28] MEDS: VITAMIN D3 25 MCG (1,000 UNITS) TABLET PO SCH (08:27)
[2020-08-28] MEDS: SALINE NASAL SPRAY (OCEAN) 45 ML BTL SCH ×2 (08:28→21:04)
[2020-08-28] MEDS: BRIMONIDINE 0.2% (ALPHAGAN) OPHTH SOLN 5 ML BTL OU SCH (08:29)
[2020-08-28] MEDS: FLUTICASONE NASAL SPRAY (FLONASE) 16 GM BTL NS SCH ×2 (08:29→21:04)
--- NOTE | 2020-08-28 08:35 | Occupational Ther Daily Note ---
OT Current Status-Daily Note Subjective Pt alert, sitting in recliner. Pt agrees to therapy. Pt states that she has been vomiting and is nauseous. Nrsg reports that pt has had medication for nausea. Pt c/o fatigue and nausea though continues to participate in therapy. Mental Status/Objective Patient Orientation: Person, Place, Time, Situation Attachments: IV, Oxygen (2L) ADL-Treatment Pt agrees to shower, declines to complete oral care. Pt given bag to choose clothing while sitting EOB. Ambulated to bathroom, declined using toilet. Transferred to shower with SBA. Completed shower using shower bench, grabbars and hand held shower with CGA for sit to stand then close SBA in standing to cleanse buttocks/heike area. Brought clothing to pt, pt able to don/doff upper body clothing by self then SBA in standing to hike pants over hips, threaded over feet by self. Pt able to brush hair sitting at sink. Completed footwear by self after gathering supplies. Pt required multiple breaks throughout ADLs. Therapy Code Descriptions/Definitions Functional [place] Measure: 0=Not Assessed/NA 4=Minimal Assistance 1=Total Assistance 5=Supervision or Setup 2=Maximal Assistance 6=Modified [place] 3=Moderate Assistance 7=Complete IndependenceSCALE: Activities may be completed with or without assistive devices. 6-Lmspkkgbvt-uytafpz completes the activity by him/herself with no assistance from a helper. 5-Set-up or Clean-up Assistance-helper sets up or cleans up; patient completes activity. [place] assists only prior to or following the activity. 4-Supervision or Touching Assistance-helper provides verbal cues and/or touching/steadying and/or contact guard assistance as patient completes activity. Assistance may be provided throughout the activity or intermittently. 3-Partial/Moderate Assistance-helper does LESS THAN HALF the effort. [place] lifts, holds or supports trunk or limbs, but provides less than half the effort. 2-Substantial/Maximal Assistance-helper does MORE THAN HALF the effort. [place] lifts or holds trunk or limbs and provides more than half the effort. 2-Sowofvubk-hawory does ALL the effort. Patient does none of the effort to complete the activity. Or, the assistance of 2 or more helpers is required for the patient to complete the activity. If activity was not attempted, code reason: 7-Patient Refused. 9-Not Applicable-not attempted and the patient did not perform the activity before the current illness, exacerbation or injury. 10-Not Attempted due to Environmental Limitations-(lack of equipment, weather restraints, etc.). 88-Not Attempted due to Medical Conditions or Safety Concerns. Eating (QC): 6 Oral Hygiene (QC): 7 Shower/Bathe Self (QC): 4 Upper Body Dressing (QC): 5 Lower Body Dressing (QC): 4 On/Off Footwear: 5 Toileting Hygiene (QC): 7 Toilet Transfer (QC): 7 Other Treatment Pt ambulated using FWW to <--> from therapy gym with 6 recovery breaks. Pt then completed 35 resistive pegs with 1# wt attached to wrist, pt fatigued quickly. Took off wts, pt completed 75 resistive pegs to increase corporate director/pinch and gross UE strengthening for daily functional tasks. After session, pt lying in bed with call light/phone in reach. All needs met in room. Nrsg present in room with medications. Education OT Patient Education: Energy conservation, Modified ADL techniques, Rehab process Teaching Recipient: Patient Teaching Methods: Demonstration, Discussion Response to Teaching: Verbalize Understanding, Return Demonstration, Reinforcement Needed OT Plater Supervisor Goals Jail Goals Time Frame: Sep 19, 2020 Eating (QC): 6 Oral Hygiene (QC): 6 Toileting Hygiene (QC): 6 Shower/Bathe Self (QC): 6 Upper Body Dressing (QC): 6 Lower Body Dressing (QC): 6 On/Off Footwear (QC): 6 Additional Goals: 1-Demonstrate ADL Tasks, 2-Verbalize Understanding, 3- ImproveStrength/[place] 1=Demonstrate adherence to instructed precautions during ADL tasks. 2=Patient will verbalize/demonstrate understanding of assistive devices/modifications for ADL. 3=Patient will improve strength/tolerance for activity to enable patient to perform ADL's. OT Education/Plan Problem List/Assessment Assessment: Decreased Activ Tolerance, Decreased UE Strength, Impaired Funct Balance, Impaired Self-Care Skills Discharge Recommendations Plan/Recommendations: Continue POC Treatment Plan/Plan of Care Patient would benefit from OT for education, treatment and training to promote independence in ADL's, mobility, safety and/or upper extremity function for ADL's. Plan of Care: ADL Retraining, Functional Mobility, Group Exercise/Act as Ind, UE Funct Exercise/Act Treatment Duration: Sep 19, 2020 Frequency: At least 5 of 7 days/Wk (IRF) Estimated Hrs Per Day: 1.5 hours per day Agreement: Yes Rehab Potential: Fair Time/GCodes Start Time: 07:10 Stop Time: 08:40 Total Time Billed (hr/min): 90 Billed Treatment Time 1 visit-ADL 3 (45 min) FA 2 (25 min) EX 1 (20 min) MIKA SUE Aug 28, 2020 08:35
[2020-08-28] MEDS: COLLAGENASE 30 GM (SANTYL) TUBE TP SCH (08:39)
[2020-08-28] MEDS: RT-BUDESONIDE NEBS 0.5 MG/2ML (PULMICORT) AMP IH SCH (08:39)
[2020-08-28] MEDS: UMECLIDINIUM BROMIDE (INCRUSE ELLIPTA) 7'S IH SCH (08:39)
[2020-08-28] MEDS: polyethylene glycoL POWDER 17 GM (MIRALAX) PACK PO SCH ×2 (08:41→21:14)
[2020-08-28] MEDS: DICLOFENAC 1% GEL 100 GM (VOLTAREN) TUBE TP SCH ×2 (08:41→21:15)
[2020-08-28] MEDS: DOCUSATE SODIUM 100 MG (COLACE) CAP PO SCH ×2 (08:41→21:15)
[2020-08-28] MEDS: SENNA W/DOCUSATE (SENOKOT S) TABLET PO SCH ×2 (08:42→21:14)
[2020-08-28] MEDS: toPIRamate 25 MG (TOPAMAX) TAB PO SCH (09:30)
[2020-08-28] MEDS: SPIRONOLACTONE 25 MG (ALDACTONE) TAB PO SCH ×2 (09:30→21:12)
--- NOTE | 2020-08-28 09:53 | Physical Therapy Daily Note ---
PT Daily Note-Current Subjective Pt presents laying supine in bed. Pt agrees to PT. Pt reports 7/10 pain in back. Appearance At conclusion of PT treatment patient returns to bed where she has access to tray, call button, and all needs having been met. Mental Status Patient Orientation: Person, Place, Time, Eyes Open, Situation Attachments: Oxygen Transfers SCALE: Activities may be completed with or without assistive devices. 8-Irijyheuuh-gdseypy completes the activity by him/herself with no assistance from a helper. 5-Set-up or Clean-up Assistance-helper sets up or cleans up; patient completes activity. [place] assists only prior to or following the activity. 4-Supervision or Touching Assistance-helper provides verbal cues and/or touchi ng/steadying and/or contact guard assistance as patient completes activity. Assistance may be provided throughout the activity or intermittently. 3-Partial/Moderate Assistance-helper does LESS THAN HALF the effort. [place] lifts, holds or supports trunk or limbs, but provides less than half the effort. 2-Substantial/Maximal Assistance-helper does MORE THAN HALF the effort. [place] lifts or holds trunk or limbs and provides more than half the effort. 0-Ngzfrogat-ffyijc does ALL the effort. Patient does none of the effort to complete the activity. Or, the assistance of 2 or more helpers is required for the patient to complete the activity. If activity was not attempted, code reason: 7-Patient Refused. 9-Not Applicable-not attempted and the patient did not perform the activity before the current illness, exacerbation or injury. 10-Not Attempted due to Environmental Limitations-(lack of equipment, weather restraints, etc.). 88-Not Attempted due to Medical Conditions or Safety Concerns. Sit to Lying (QC): 4 Lying to Sitting/Side of Bed(Q: 4 Sit to Stand (QC): 4 Chair/Trg-ed-Bqtpg Xfer(QC): 4 Patient provided SBA with bed mobility and CGA with standing transfers. Weight Bearing Right Lower Extremity: Right Full Weight Bearing Left Lower Extremity: Left Full Weight Bearing Gait Training Does the Patient Walk?: Yes Distance: 100'x4 Walk 10 feet (QC): 4 Walk 50 ft with 2 Turns(QC): 4 Walk 150 ft (QC): 4 Gait Assistive Device: FWW Pt demonstrated a quick ambulation but requires seated rest break at approx 100' (nursing home) stev[place]. Pt reports that her legs feel weak, shaky, and will give out. Exercises Seated Therapy Exercises: Ankle pumps, Long arc quads, Hip abd/add (Pillow squeeze) Seated Reps: 20 Standing: Sit to Stand Standing Reps: 30 NuStep Minutes: 15 NuStep Workload: 4 Treatments LE strengthening Assessment Current Status: Good Progress Pt reports fatiguing easily yet demonstrates quick and steady repetitions during her session. Pt limited in her endurance with weightbearing activities. Patient may be self limiting. PT Short Term Goals Short Term Goals Time Frame: Sep 02, 2020 Sit to lyin Lying to sitting on side of be: 6 Sit to stand: 5 Walk 50 feet with two turns: 4 Walk 150 feet: 4 PT Hostage Negotiator Goals Hostage Negotiator Goals PT [facility] Goals Time Frame: Sep 16, 2020 Roll Left & Right (QC): 6 Sit to Lying (QC): 6 Lying-Sitting on Side/Bed(QC): 6 Sit to Stand (QC): 6 Chair/Ydu-kc-Kctgh Xfer(QC): 6 Toilet Transfer (QC): 6 Car Transfer (QC): 6 Does the Patient Walk: Yes Walk 10 feet (QC): 6 Walk 50ft with 2 Turns (QC): 6 Walk 150 ft (QC): 5 Walking 10ft on Uneven Surface: 5 1 Step (curb) (QC): 6 4 Steps (QC): 4 12 Steps (QC): 4 Picking up an Object (QC): 4 Does the Pt use WC or Scooter?: Yes Wheel 50 feet with 2 turns (QC: 6 Type: Manual Wheel 150 feet: 6 Type: Manual PT Plan Problem List Problem List: Activity Tolerance, Functional Strength, Safety, Balance, Gait, Transfer, Bed Mobility, ROM Treatment/Plan Treatment Plan: Continue Plan of Care Treatment Plan: Bed Mobility, Education, Functional Activity [place], Functional Strength, Group Therapy, Gait, Safety, Therapeutic Exercise, Transfers Treatment Duration: Sep 16, 2020 Frequency: At least 5 of 7 days/Wk (IRF) Estimated Hrs Per Day: 1.5 hours per day Patient and/or Family Agrees t: Yes Safety Risks/Education Patient Education: Gait Training, Transfer Techniques, Correct Positioning, Safety Issues Teaching Recipient: Patient Teaching Methods: Demonstration, Discussion Response to Teaching: Reinforcement Needed Time/GCodes Time In: 0900 Time Out: 1000 Total Billed Treatment Time: 60 Total Billed Treatment 1 visit FA 20' EX 40' SEAN MARTINEZ PT Aug 28, 2020 09:53
[2020-08-28] MEDS: HYDROcodone/APAP 10 MG/325 MG (LORTAB) TAB PO PRN (10:13)
[2020-08-28] MEDS: LACTOBACILLUS ACIDOPHILUS (PROBIOTIC) CAPSULE PO SCH ×3 (10:13→21:05)
[2020-08-28] MEDS: PREGABALIN 100 MG (LYRICA) CAPSULE PO SCH ×2 (10:14→21:06)
[2020-08-28] MEDS: QUEtiapine 25 MG (SEROquel) TAB IMMEDIATE RELEASE PO SCH ×2 (10:14→21:06)
[2020-08-28] MEDS: PANTOPRAZOLE 40 MG (PROTONIX) TAB PO SCH (10:14)
[2020-08-28 10:15] VITALS: BP 84/51
[2020-08-28] MEDS: LORATADINE (CLARITIN) 10 MG TAB PO SCH (10:15)
[2020-08-28] MEDS: MELOXICAM 7.5 MG (MOBIC) TABLET PO SCH (10:15)
--- NOTE | 2020-08-28 10:15 | NUR ---
HAS BEEN BUSY WITH THERAPY. BP NOW 84/51 AND ANTIHYPERTENSIVES HELD. CONTINUED NAUSEA, BUT REFUSES COMPAZINE. STATES STOOLS ARE STILL ORANGE IN COLOR.
[2020-08-28] MEDS: PENTOXIFYLLINE ER 400 MG (TRENtal) TAB PO SCH ×3 (10:16→21:05)
[2020-08-28] MEDS: lisINopril 5 MG (PRINIVIL) TABLET PO SCH (10:17)
[2020-08-28] MEDS: PARoxetine 20 MG (PAXIL) TAB PO SCH (10:23)
--- NOTE | 2020-08-28 10:58 | Individualized Plan of Care ---
Individualized Plan of Care Rehab Nursing IPOC Order Admission Date Aug 26, 2020 at 14:08 Current Orders Orders Admission Order(Inpt,Obs,Sdc) (08/26/20 12:35) Vital Signs: Per Unit Policy ( 08,16,00 (08/26/20 12:35) Ad Copy Writer-Inpt Rehab Con (08/26/20 12:35) Rehab Nursing Orders-Ipoc (08/26/20 12:35) Physical Therapy Rehab Orders (08/26/20 12:35) Occupational Therapy Rehab Ord (08/26/20 12:35) Speech Therapy Rehab Orders (08/26/20 12:35) Cbc With Automated Diff (08/27/20 06:00) Comprehensive Metabolic Panel (08/27/20 06:00) Intake & Output 06,14,22 (08/26/20 12:35) Precautions (Aru) (08/26/20 12:35) Weekly Weight WEEK (08/26/20 12:35) Rehab-Intensity Of Therapy (08/26/20 12:35) Cho 60g/M 3snack (16-2000 Edgard) (08/26/20 Lunch) Initiate Admission Nursing Pro .admission (08/26/20 12:35) Acetaminophen Tablet (Tylenol Tablet) (08/26/20 12:45) Alprazolam Tablet (Xanax Tablet) (08/26/20 12:45) Calcium Carbonate Chew Tablet (Antacid C (08/26/20 12:45) Diphenhydramine Tablet (Benadryl Tablet) (08/26/20 12:45) Docusate Sodium Capsule (Colace Capsule) (08/26/20 21:00) Docusate Sodium Capsule (Colace Capsule) (08/26/20 12:45) Bisacodyl Suppository (Dulcolax Supposit (08/26/20 12:45) Lactulose Oral Solution (Enulose Oral So (08/26/20 12:45) Na Phos/Na Biphos Enema (Fleet Enema Benja (08/26/20 12:45) Guaifenesin/Codeine Syrup (Robitussin Ac (08/26/20 12:45) Loperamide Tablet (Imodium Tablet) (08/26/20 12:45) Enoxaparin Injection (Lovenox Injection) (08/26/20 16:00) Melatonin Tablet (Melatonin Tablet) (08/26/20 12:45) Polyethylene Glycol Powder Pkt (Miralax (08/26/20 21:00) Ondansetron Oral Dissolve Tab (Zofran (08/26/20 12:45) Senna S Tablet (Senokot S Tablet) (08/26/20 21:00) Code/Resuscitation (08/26/20 12:35) Initiate Admission Nursing Pro .admission (08/26/20 12:35) Consult General Surgery (08/26/20 12:35) Consult Wound Care Physician (08/26/20 12:35) Admission Arrival Bed Request (08/26/20 14:07) Patient Visit (08/26/20 ) Pt Eval Moderate Complexity (08/26/20 ) Exercise Therap, Ea 15 Min (08/26/20 ) Functional Activities, Ea 15 (08/26/20 ) Alprazolam Tablet (Xanax Tablet) (08/26/20 17:00) Alteplase (Cathflo) Injection (Cathflo (08/26/20 17:00) Budesonide Inhalation Solution (Pulmicor (08/26/20 21:00) Calcium Carbonate Tablet (Calcarb 600 Ta (08/27/20 07:00) Cefazolin Injection (Ancef Injection) (08/26/20 17:00) Cholecalciferol Capsule/Tablet (Vitamin (08/27/20 07:00) D50w (Emergency) Syringe (Dextrose 50% 5 (08/26/20 17:00) Diclofenac 1% Gel (Voltaren 1% Gel) (08/26/20 21:00) Fentanyl Patch (Duragesic Patch) (08/26/20 17:00) Fluconazole Tablet (Diflucan Tablet) (08/26/20 17:00) Hydrocodone/Apap 10/325 Tablet (Lortab 1 (08/26/20 17:00) Albuterol/Ipra Inhalation Soln (Duoneb I (08/26/20 17:00) Lactobacillus Acidophilus Cap (Acidophil (08/26/20 21:00) Latanoprost 0.005% Ophth Soln (Xalatan 0 (08/26/20 21:00) Lisinopril Tablet (Zestril Tablet) (08/27/20 09:00) Loperamide Tablet (Imodium Tablet) (08/26/20 17:00) Montelukast Tablet (Singulair Tablet) (08/26/20 21:00) Therapeutic Multivitamin Tab (Vitamins, (08/27/20 07:00) Pantoprazole Tablet (Protonix Tablet) (08/27/20 09:00) Pentoxifylline Tablet (Trental Tablet) (08/26/20 21:00) Potassium Chloride (Tablet) (K Dur Table (08/26/20 17:00) Prednisone Tablet (Deltasone Tablet) (08/27/20 07:00) Pregabalin Capsule (Lyrica Capsule) (08/26/20 21:00) Prochlorperazine Tablet (Compazine Table (08/26/20 17:00) Quetiapine Immediate Release (Seroquel I (08/26/20 21:00) Saline Nasal [place] ([place] Nasal [place]) (08/26/20 21:00) Spironolactone Tablet (Aldactone Tablet) (08/26/20 21:00) Acetaminophen Tablet/Caplet (Tylenol T (08/26/20 17:45) (Nf) Alendronate Sodium (08/27/20 09:00) Aripiprazole Tablet (Abilify Tablet) (08/26/20 21:00) Brimonidine 0.2% Ophth Soln (Alphagan (08/27/20 09:00) (Nf) Calcium Carbonate (Antacid Maximum (08/27/20 09:00) Loratadine Tablet (Claritin Tablet) (08/27/20 09:00) Betamethasone Dipropinate Crm (Diprolene (08/26/20 21:00) Insulin Determir (Per Unit) (Levemir (Pe (08/26/20 21:00) Meloxicam Tablet (Mobic Tablet) (08/27/20 09:00) Mirtazapine Tablet (Remeron Tablet) (08/26/20 21:00) Rifampin Capsule (Rifadin Capsule) (08/26/20 22:00) Topiramate Tablet (Topamax Tablet) (08/27/20 09:00) Mdi Treatment (08/26/20 16:57) Accucheck Achs ACHS (08/26/20 17:01) Insulin Aspart (Novolog) (Novolog (Charg (08/26/20 21:00) Cefazolin 2 Gm Iv Premixed (Ancef 2 Gm P (08/26/20 17:00) Fluticasone Nasal [place] (Flonase Nasal S (08/27/20 09:00) Patch Removal (Patch Removal) (08/29/20 11:59) Paroxetine Tablet (Paxil Tablet) (08/27/20 10:00) Furosemide Tablet (Lasix Tablet) (08/27/20 07:00) Fentanyl Patch (Duragesic Patch) (08/29/20 12:00) Fenofibrate,Micronized Capsule (Lofibra (08/26/20 21:00) Umeclidinium [place] Inhaler (Incruse El (08/27/20 08:00) Ambulate 08,12,20 (08/26/20 19:36) Sequential Compression Device Q4H (08/26/20 19:36) Dvt/Vte Risk - Notifiy Physici Q4H (08/26/20 19:36) Flu Quad (3yoa+) 2020- (Afluria Quad 2 (08/26/20 19:45) Abdomen, Flat & Upright/Decub (08/27/20 08:09) Dressing Order (Intervention) DAILY (08/27/20 08:09) Collagenase Ointment (Santyl Ointment) (08/28/20 09:00) Patient May Use Own Med,Single (Patient (08/27/20 11:30) Patient Visit (08/27/20 ) Speech Sound Lang Comp (08/27/20 ) Naproxen Tablet (Naprosyn Tablet) (08/27/20 12:30) Ensure High Protein (08/27/20 Dinner) Patient Visit (08/27/20 ) Gait Training, Ea 15 Min (08/27/20 ) Functional Activities, Ea 15 (08/27/20 ) Exercise Therap, Ea 15 Min (08/27/20 ) Albuterol Pre-Mix Nebs (Rt) (Proventil (08/28/20 21:00) Svn Small Volume Nebulizer (08/28/20 10:57) Patient Visit (08/28/20 ) Exercise Therap, Ea 15 Min (08/28/20 ) Functional Activities, Ea 15 (08/28/20 ) Gait Training, Ea 15 Min (08/28/20 ) Rehab Nursing Orders: Ongoing Assess. of Function Status, Bladder Management, Bladder Scan, Bladder Training, Bowel Management, Bowel Training, Disease Management & Educaiton, DVT Prophylaxis, Fall Prevention, Fluid/Electrolyte/Nutrition Mgmt, Infection Prevention, Medication Management & Education, Management of Risks & Complications, Management of Skin Intergrity, Nutrition Management, Pain Management, Patient/Family Support, Safety Management Intensity of Therapy to be met Patient to be seen: Min.3h per day/5 of 7d PT IPOC Problem List: Activity Tolerance, Functional Strength, Safety, Balance, Gait, Transfer, Bed Mobility, ROM Treatment Plan: Continue Plan of Care Bed Mobility, Education, Functional Activity [place], Functional Strength, Group Therapy, Gait, Safety, Therapeutic Exercise, Transfers Treatment Duration: Sep 16, 2020 Frequency: At least 5 of 7 days/Wk (IRF) Estimated Hrs Per Day: 1.5 hours per day OT IPOC Problems: Decreased Activ Tolerance, Decreased UE Strength, Impaired Funct Balance, Impaired Self-Care Skills OT Treatment, Training and Edu: Yes Plan of Care: ADL Retraining, Functional Mobility, Group Exercise/Act as Ind, UE Funct Exercise/Act Treatment Duration: Sep 19, 2020 Frequency: At least 5 of 7 days/Wk (IRF) Estimated Hrs Per Day: 1.[address] IPOC Speech Therapy Treatment Plan: Discontinue ST Treatment Duration: Aug 27, 2020 Frequency: 1 time per week Estimated Hrs Per Day: .25 hour per day Ad Copy Writer/Case Mgmt Ad Copy Writer/Case Managemen: Discharge Planning Dietitian/Willow Machine Operator Dietitian/Willow Machine Operator to monitor nutritional status and make changes and/or recommendations as needed and work with speech pathology on dietary upgrades as the occur. 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
--- NOTE | 2020-08-28 10:58 | PM&R Progress Note ---
Subjective HPI/CC On Admission Date Seen by Provider: Aug 28, 2020 Time Seen by Provider: 12:30 Subjective/Events-last exam 08/28/20: Nausea continued and chose not to take Compazine and after I spoke to her about being proactive and take the Compazine she agreed to take it BP low at SBP 84 so holding those meds Loose stools Potassium 5.5 stopping potassium supplement, continuing Spironolactone Zofran and Compazine helping with nausea Appreciate Dr. Snyder and Dr. Eid Monitoring diarrhea Checked meds and labs Conferred with RN Reviewed therapy notes Review of Systems Gastrointestinal: Nausea Musculoskeletal: back pain Objective Exam Vital Signs Vital Signs Date Time Temp Pulse Resp B/P (MAP) Pulse Ox O2 Delivery O2 Flow Rate FiO2 08/28/20 21:00 Nasal Cannula 2.00 08/28/20 17:30 37.2 98 20 109/63 (78) 93 Capillary Refill : Less Than 3 Seconds General Appearance: No Apparent Distress, WD/WN, Chronically ill, Obese HEENT: PERRL/EOMI, Normal ENT Inspection Neck: Non Tender, Supple Respiratory: Chest Non Tender, No Accessory Muscle Use, No Respiratory Distress Cardiovascular: Regular Rate, Rhythm, No JVD Gastrointestinal: Normal Bowel Sounds, No Organomegaly, No Pulsatile Mass, Non Tender, Soft Back: Normal Inspection, No CVA Tenderness, Decreased Range of Motion Extremity: Normal Inspection, No Calf Tenderness Neurologic/Psychiatric: Alert, Oriented x3, Normal Mood/Affect Skin: Normal Color, Warm/Dry Lymphatic: No Adenopathy Results/Procedures Lab Patient resulted labs reviewed. FIM Transfers Therapy Code Descriptions/Definitions Functional [place] Measure: 0=Not Assessed/NA 4=Minimal Assistance 1=Total Assistance 5=Supervision or Setup 2=Maximal Assistance 6=Modified [place] 3=Moderate Assistance 7=Complete IndependenceSCALE: Activities may be completed with or without assistive devices. 5-Ixbhsniufv-ekbdoyz completes the activity by him/herself with no assistance from a helper. 5-Set-up or Clean-up Assistance-helper sets up or cleans up; patient completes activity. Jackson assists only prior to or following the activity. 4-Supervision or Touching Assistance-helper provides verbal cues and/or touching/steadying and/or contact guard assistance as patient completes activity. Assistance may be provided throughout the activity or intermittently. 3-Partial/Moderate Assistance-helper does LESS THAN HALF the effort. Jackson lifts, holds or supports trunk or limbs, but provides less than half the effort. 2-Substantial/Maximal Assistance-helper does MORE THAN HALF the effort. Jackson lifts or holds trunk or limbs and provides more than half the effort. 1-Embmkgifg-gphuym does ALL the effort. Patient does none of the effort to complete the activity. Or, the assistance of 2 or more helpers is required for the patient to complete the activity. If activity was not attempted, code reason: 7-Patient Refused. 9-Not Applicable-not attempted and the patient did not perform the activity before the current illness, exacerbation or injury. 10-Not Attempted due to Environmental Limitations-(lack of equipment, weather restraints, etc.). 88-Not Attempted due to Medical Conditions or Safety Concerns. Roll Left to Right (QC): 6 Sit to Lying (QC): 4 Sit to Stand (QC): 4 Chair/Sqm-ye-Iegql Xfer(QC): 4 Car Transfer (QC): 4 Gait Training Does the Patient Walk?: Yes Distance: 100'x4 Walk 10 feet (QC): 4 Walk 50 ft with 2 Turns(QC): 4 Walk 150 ft (QC): 4 Walking 10ft/uneven surface-QC: 4 Gait Persons Needed: 1 Gait Assistive Device: FWW Wheelchair Training Does the Pt Use a Wheelchair?: Yes Distance: 75' Wheel 50 ft with 2 turns (QC): 4 Wheel 150 ft (QC): 88 Type of Wheelchair: Manual Stair Training #of Steps: 1 1 Step (curb) (QC): 4 4 Steps (QC): 88 12 Steps (QC): 88 Balance Picking up an Object (QC): 3 ADL-Treatment Eating (QC): 6 Oral Hygiene (QC): 7 Bathing Location: L Arm, R Arm, L Upper Leg, R Upper Leg, L Lower Leg (including foot), R Lower Leg (including foot), Chest, Abdomen, Buttocks, Perineal Area Shower/Bathe Self (QC): 4 Upper Body Dressing (QC): 5 Lower Body Dressing (QC): 4 On/Off Footwear (QC): 5 Toileting Hygiene (QC): 7 Toilet Transfer (QC): 7 Assessment/Plan Assessment and Plan Assess & Plan/Chief Complaint Assessment: Myopathy Discitis on Ancef until 09/03/20 DM Right DM foot ulcer HTN HLP O2 dependent MARY ANN PLan: DM management IRF protocol Pain management 08/27/20: Stop Potassium due to level of 5.5 Use zofran and Compazine Appreciate Dr. Snyder consultation Appreciated Dr. Eid consultation Monitor diarrhea 08/28/20: Monitor nausea Compazine IRF protocol (1) Myopathy (2) Diabetic foot ulcer (3) Diabetes (4) Chronic pain (5) Nausea (6) MARY ANN (obstructive sleep apnea) (7) Oxygen dependent (8) Discitis ЕЛЕНА CRUZ DO Aug 28, 2020 10:58
--- NOTE | 2020-08-28 12:37 | NUR ---
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 Patient transferred from [facility] to [facility] 07/18/20 and later to [place] for an additional 25 day stay there. Additional comorbidities are, in part, right diabetic foot ulcer with group home weekly wound care at [facility], DM, chronic pain, MARY ANN, dependence on supplemental oxygen, discitis. Patient has had ongoing nausea for approximately 3 weeks. Patient resides at home with her spouse Aleksandr Terrazas and daughter Loraine Montoya in [place]. Patient has had a long absence from home during this hospitalization, she fully intends to return there when able. She was previously assisted as needed, she has disabled status and is on Medicare at age 55. PCP: Dr. Bogdan CALLES MD PHARMACY: [facility] INSURANCE: Medicare, [employer] DME: Has 4WW with seat, grab bars in bath, shower chair, 02 continuous 2L from [facility], Trilogy from [facility]. BARRIERS TO DISCHARGE PLANNING: Patient's spouse and daughter both work multimedia coordinator and upon her return home she will be alone those periods. Prior to this onset of illness and extended hospitalization, patient managed that time window comfortably. They have 5 children, but patient reports that only Loraine (who resides with them) is invested and available to assist. CONTACTS: Aleksandr Terrazas, [phone] Loraine Montoya, [phone] [address] [place] [address] Patient understands the purpose and process of the weekly patient care conference and that her first review will be September 03.
--- NOTE | 2020-08-28 13:01 | NUR ---
CM/SS PATIENT CARE CONFERENCE Provided Summary for patient review, she indicated she had no questions, signed, charted. Patient will be reviewed next Tuesday regarding status, progress, potential target discharge.
--- NOTE | 2020-08-28 14:53 | Progress Note - Surgery ---
KAILA CARPENTER MED STUDENT 08/28/20 1453: Subjective Date Seen by a Provider: Aug 28, 2020 Time Seen by a Provider: 07:01 Subjective/Events-last exam Patient seen and examined this morning. She is still nauseous and started having vomiting last night. She states the Zofran has not helped. She is still having diarrhea and her stools are still orange. She denies any fever, chills, shortness of breath or chest pain. She has some mild abdominal as well. Review of Systems General: No Chills HEENT: Head Aches Pulmonary: No Dyspnea, No Cough Cardiovascular: No: Chest Pain, Edema Gastrointestinal: Nausea, Vomiting, Abdominal Pain, Diarrhea Genitourinary: No Dysuria Musculoskeletal: back pain Objective Exam Vital Signs Date Time Temp Pulse Resp B/P (MAP) Pulse Ox O2 Delivery O2 Flow Rate FiO2 08/28/20 09:00 Nasal Cannula 2.00 08/28/20 08:39 99 Nasal Cannula 2.00 08/28/20 05:16 36.4 98 20 106/64 (78) 96 Nasal Cannula 2.00 08/27/20 21:20 Nasal Cannula 2.00 08/27/20 20:24 96 Nasal Cannula 2.00 08/27/20 17:34 35.8 100 20 95/60 (72) 97 Nasal Cannula 2.00 I & O 08/28/20 07:00 Intake Total 1360 ml Balance 1360 ml Capillary Refill : Less Than 3 Seconds General Appearance: WD/WN, Chronically ill, Obese HEENT: PERRL/EOMI Respiratory: No Accessory Muscle Use, No Respiratory Distress Cardiovascular: Regular Rate, Rhythm, No Edema Peripheral Pulses: 2+ Radial Pulses (R), 2+ Radial Pulses (L) Gastrointestinal: distended (minimal), tenderness (LLQ, with palpation), hernia (reducible epigastric) Extremity: No Calf Tenderness, No Pedal Edema Neurologic/Psychiatric: Alert, Normal Mood/Affect Skin: Normal Color, Warm/Dry Lymphatic: No Adenopathy Results Lab Laboratory Tests 08/27/20 15:34: Glucometer 186H 08/27/20 21:07: Glucometer 216H 08/28/20 05:35: Glucometer 189H 08/28/20 10:53: Glucometer 280H Radiology Date of Exam:08/27/20 ABDOMEN, FLAT & UPRIGHT/DECUB INDICATION: Nausea and diarrhea. TIME OF EXAM: 10:53 a.m. FINDINGS: There are surgical clips in right upper quadrant. No free air is identified. There is some gaseous distended bowel loops in the central abdomen. There are scattered air-fluid levels in the right abdomen. There is moderate gaseous distention to the stomach. IMPRESSION: Nonspecific bowel gas pattern. There are areas of gaseous distended bowel with scattered air-fluid levels present. Continued progress films could be obtained. Assessment/Plan Assessment/Plan Assessment/Plan Nausea- likely multifactorial, encourage oral hydration, will try adding reglan Diarrhea- likely due to correction antibiotic use Osteomyelitis L2-L3- continue correction antibiotics DM epigastric hernia- reducible, no pain, can fix electively if patient desires in the future. no surgical intervention needed at this time Clinical Quality Measures DVT/VTE Risk/Contraindication: Risk Factor Score Per Nursin RFS Level Per Nursing on Admit: 4+=Very High EKATERINA EID DO 08/28/20 1610: Subjective Subjective/Events-last exam Patient with nausea and through up some phlegm last night. Feels that it is related to her antibiotics. Patient having diarrhea. Passing flatus. Slight llq abdominal pain, minimal. Denies fever sweats chills shortness of breath or chest pain. Objective Exam General Appearance: No Apparent Distress, WD/WN, Chronically ill HEENT: PERRL/EOMI, Normal ENT Inspection Neck: Normal Inspection, Non Tender Respiratory: Chest Non Tender, No Accessory Muscle Use, No Respiratory Distress Cardiovascular: Regular Rate, Rhythm, No Edema, No JVD Gastrointestinal: soft, distended (minimal), tenderness (LLQ, with palpation), hernia (reducible epigastric) Extremity: Non Tender, No Calf Tenderness Neurologic/Psychiatric: Alert, Oriented x3, Normal Mood/Affect Skin: Normal Color, Warm/Dry Lymphatic: No Adenopathy Assessment/Plan Assessment/Plan Assessment/Plan Nausea- likely multifactorial, encourage oral hydration, will try adding reglan Diarrhea- likely due to correction antibiotic use Osteomyelitis L2-L3- continue correction antibiotics DM epigastric hernia- reducible, no pain, can fix electively if patient desires in the future. Xray yesterday gaseous distention c air fluid levels no surgical intervention needed at this time Supervisory-Addendum Brief Verification & Attestation Participated in pt care: history, MDM, physical Personally performed: exam, history, MDM, supervision of care Care discussed with: Medical Student Procedures: n/a Results interpretation: Verified all documentation Verification and Attestation of Medical Student E/M Service A medical student performed and documented this service in my presence. I reviewed and verified all information documented by the medical student and made modifications to such information, when appropriate. I personally performed the physical exam and medical decision making. Ekaterina Eid, Aug 28, 2020,16:10 KAILA CARPENTER MED STUDENT Aug 28, 2020 14:53 EKATERINA EID DO Aug 28, 2020 16:10
--- NOTE | 2020-08-28 15:02 | Physical Therapy Daily Note ---
PT Daily Note-Current Subjective Pt presents supine in bed. Pt agrees to PT. Pt reports 7/10 pain. Appearance At conclusion of PT treatment pt returns to bed where she has access to tray, call button, and all needs have been met. Mental Status Patient Orientation: Person, Place, Time, Eyes Open, Situation Transfers SCALE: Activities may be completed with or without assistive devices. 5-Zmvpeahwpw-qrnnuuu completes the activity by him/herself with no assistance from a helper. 5-Set-up or Clean-up Assistance-helper sets up or cleans up; patient completes activity. [place] assists only prior to or following the activity. 4-Supervision or Touching Assistance-helper provides verbal cues and/or touching/steadying and/or contact guard assistance as patient completes activity. Assistance may be provided throughout the activity or intermittently. 3-Partial/Moderate Assistance-helper does LESS THAN HALF the effort. [place] lifts, holds or supports trunk or limbs, but provides less than half the effort. 2-Substantial/Maximal Assistance-helper does MORE THAN HALF the effort. [place] lifts or holds trunk or limbs and provides more than half the effort. 8-Iifhppfdj-slgzbq does ALL the effort. Patient does none of the effort to complete the activity. Or, the assistance of 2 or more helpers is required for the patient to complete the activity. If activity was not attempted, code reason: 7-Patient Refused. 9-Not Applicable-not attempted and the patient did not perform the activity before the current illness, exacerbation or injury. 10-Not Attempted due to Environmental Limitations-(lack of equipment, weather restraints, etc.). 88-Not Attempted due to Medical Conditions or Safety Concerns. Sit to Lying (QC): 4 Lying to Sitting/Side of Bed(Q: 4 Sit to Stand (QC): 4 Chair/Fln-em-Rtvzz Xfer(QC): 4 Weight Bearing Right Lower Extremity: Right Full Weight Bearing Left Lower Extremity: Left Full Weight Bearing Gait Training Does the Patient Walk?: Yes Distance: 100' x 8 Walk 10 feet (QC): 4 Walk 50 ft with 2 Turns(QC): 4 Gait Assistive Device: FWW CGA. Pt requires rest breaks approx every 100' due to her legs feeling weak Exercises Seated Therapy Exercises: Ankle pumps, Long arc quads, Hip flexion (cued for TA activation), Hip abd/add (balloon squeeze) Seated Reps: 20 Treatments Gait training and LE strengthening Assessment Current Status: Good Progress Pt is improving gait but requires significant motivation. PT Short Term Goals Short Term Goals Time Frame: Sep 02, 2020 Sit to lyin Lying to sitting on side of be: 6 Sit to stand: 5 Walk 50 feet with two turns: 4 Walk 150 feet: 4 PT Jail Goals Jail Goals PT Jail Goals Time Frame: Sep 16, 2020 Roll Left & Right (QC): 6 Sit to Lying (QC): 6 Lying-Sitting on Side/Bed(QC): 6 Sit to Stand (QC): 6 Chair/Nrx-aq-Tczut Xfer(QC): 6 Toilet Transfer (QC): 6 Car Transfer (QC): 6 Does the Patient Walk: Yes Walk 10 feet (QC): 6 Walk 50ft with 2 Turns (QC): 6 Walk 150 ft (QC): 5 Walking 10ft on Uneven Surface: 5 1 Step (curb) (QC): 6 4 Steps (QC): 4 12 Steps (QC): 4 Picking up an Object (QC): 4 Does the Pt use WC or Scooter?: Yes Wheel 50 feet with 2 turns (QC: 6 Type: Manual Wheel 150 feet: 6 Type: Manual PT Plan Problem List Problem List: Activity Tolerance, Functional Strength, Safety, Balance, Gait, Transfer, Bed Mobility, ROM Treatment/Plan Treatment Plan: Continue Plan of Care Treatment Plan: Bed Mobility, Education, Functional Activity [place], Functional Strength, Group Therapy, Gait, Safety, Therapeutic Exercise, Transfers Treatment Duration: Sep 16, 2020 Frequency: At least 5 of 7 days/Wk (IRF) Estimated Hrs Per Day: 1.5 hours per day Patient and/or Family Agrees t: Yes Safety Risks/Education Patient Education: Gait Training, Correct Positioning, Safety Issues Teaching Recipient: Patient Teaching Methods: Demonstration, Discussion Response to Teaching: Reinforcement Needed Time/GCodes Time In: 1400 Time Out: 1430 Total Billed Treatment Time: 30 Total Billed Treatment 1 visit GT 20' EX 10' SEAN MARTINEZ PT Aug 28, 2020 15:02
[2020-08-28] MEDS: ENOXAPARIN 40 MG/0.4 ML (LOVENOX) SYR SC SCH (16:03)
--- NOTE | 2020-08-28 16:59 | Wound Care Assessment ---
Wound Care Assessment Date Seen by Provider: Aug 28, 2020 Time Seen by Provider: 16:30 Chief Complaint R plantar ulcer. HPI The patient is a 55 year old female with a [place] 3 R plantar DFU, much improved by enforced bed rest of recent severe illness. Santyl dressings ordered. Will follow. 08/28/20 Interval Note: Patient with little pain in R foot wound. The wound is clean and stable with present regimen. Continue same. Past Medical History: Admits Diabetes Type II, Admits Heart Disease ([place] fib, COPD, MARY ANN) Smoking Status: Never a Smoker Recreational Drug Use: No Alcohol Use: Denies Use Review of Systems Pulmonary: No Dyspnea Cardiovascular: No: Chest Pain Exam Vital Signs Date Time Temp Pulse Resp B/P (MAP) Pulse Ox O2 Delivery O2 Flow Rate FiO2 08/28/20 09:00 Nasal Cannula 2.00 08/28/20 08:39 99 08/28/20 05:16 36.4 98 20 106/64 (78) Capillary Refill : Less Than 3 Seconds General Appearance: no apparent distress Respiratory: no respiratory distress Extremities: other (R plantar wound is unchanged.) Results Laboratory Tests 08/27/20 21:07: Glucometer 216H 08/28/20 05:35: Glucometer 189H 08/28/20 10:53: Glucometer 280H Assessment/Plan/Dx 1. 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 Plan: continue Santyl dressings. TERRY HEATH MD Aug 28, 2020 16:59
--- NOTE | 2020-08-28 17:00 | NUR ---
DR. RUBIO WAS HERE TO SEE PATIENT AND ADDED REGLAN TO REGIMEN. PHARMACY STATES POSSIBLE INTERACTIONS FROM REGLAN WITH COMPAZINE AND SEROQUEL. KAREN SILVA.
[2020-08-28 17:30] VITALS: BP 109/63
[2020-08-28] MEDS ORDERED: METOCLOPRAMIDE 10 MG (REGLAN) TAB PO SCH (18:00)
[2020-08-28] MEDS: MIRTAZAPINE 15 MG (REMERON) TAB PO SCH (21:05)
[2020-08-28] MEDS: FENOFIBRATE, MICRO 67 MG (LOFIBRA) CAPSULE PO SCH (21:05)
[2020-08-28] MEDS: MONTELUKAST 10 MG (SINGULAIR) TAB PO SCH (21:06)
[2020-08-28] MEDS: LATANOPROST 0.005% (XALATAN) OPHTH SOLN 2.5 ML OU SCH (21:08)
[2020-08-28] MEDS: BETAMETHASONE DIPRO (AUGMENTED) 0.05% CREAM 15 GM TOP SCH (21:14)
[2020-08-28] MEDS: RT-ALBUTEROL SULF 2.5 MG/3 ML PRE-MIX VIAL INH SCH (22:19)
[2020-08-29] MEDS: ceFAZolin 2 GM/50 ML (PRE-MIXED) IV SCH ×3 (01:59→17:09)
[2020-08-29] MEDS: inSUlin ASPART (NovoLOG) 1 UNIT/0.01 ML (CHARGE PER UNIT) SC SCH ×4 (05:57→20:59)
[2020-08-29 05:59] VITALS: BP 113/65
[2020-08-29] MEDS: FUROSEMIDE 40 MG (LASIX) TAB PO SCH (06:05)
[2020-08-29] MEDS: MULTIVIT W/MINERALS TAB (THERAGRAN M) PO SCH (06:05)
[2020-08-29] MEDS: predniSONE 10 MG TAB PO SCH (06:05)
[2020-08-29] MEDS: RIFAMPIN 150 MG (RIFADIN) CAP PO SCH ×3 (06:06→21:01)
[2020-08-29] MEDS: VITAMIN D3 25 MCG (1,000 UNITS) TABLET PO SCH (06:06)
[2020-08-29] MEDS: CALCIUM CARBONATE 600 MG (CALCARB) TAB PO SCH (06:06)
[2020-08-29] MEDS: DOCUSATE SODIUM 100 MG (COLACE) CAP PO SCH ×2 (07:53→19:50)
[2020-08-29] MEDS: polyethylene glycoL POWDER 17 GM (MIRALAX) PACK PO SCH ×2 (07:54→19:51)
[2020-08-29] MEDS: SENNA W/DOCUSATE (SENOKOT S) TABLET PO SCH ×2 (07:54→19:51)
[2020-08-29] MEDS: PREGABALIN 100 MG (LYRICA) CAPSULE PO SCH ×2 (08:05→20:58)
[2020-08-29] MEDS: lisINopril 5 MG (PRINIVIL) TABLET PO SCH (08:05)
[2020-08-29] MEDS: PANTOPRAZOLE 40 MG (PROTONIX) TAB PO SCH (08:06)
[2020-08-29] MEDS: QUEtiapine 25 MG (SEROquel) TAB IMMEDIATE RELEASE PO SCH ×2 (08:07→21:01)
[2020-08-29] MEDS: MELOXICAM 7.5 MG (MOBIC) TABLET PO SCH (08:07)
[2020-08-29] MEDS: PARoxetine 20 MG (PAXIL) TAB PO SCH (08:07)
[2020-08-29] MEDS: LACTOBACILLUS ACIDOPHILUS (PROBIOTIC) CAPSULE PO SCH ×3 (08:07→21:00)
[2020-08-29] MEDS: PENTOXIFYLLINE ER 400 MG (TRENtal) TAB PO SCH ×3 (08:08→21:00)
[2020-08-29] MEDS: HYDROcodone/APAP 10 MG/325 MG (LORTAB) TAB PO PRN (08:08)
[2020-08-29] MEDS: LORATADINE (CLARITIN) 10 MG TAB PO SCH (08:08)
[2020-08-29] MEDS: SPIRONOLACTONE 25 MG (ALDACTONE) TAB PO SCH ×2 (08:08→20:59)
[2020-08-29] MEDS: ALPRAZolam 1 MG (XANAX) TAB PO PRN ×2 (08:10→12:20)
[2020-08-29] MEDS: FLUTICASONE NASAL SPRAY (FLONASE) 16 GM BTL NS SCH ×2 (08:12→21:04)
[2020-08-29] MEDS: DICLOFENAC 1% GEL 100 GM (VOLTAREN) TUBE TP SCH ×2 (08:12→19:52)
[2020-08-29] MEDS: COLLAGENASE 30 GM (SANTYL) TUBE TP SCH (08:13)
[2020-08-29] MEDS: SALINE NASAL SPRAY (OCEAN) 45 ML BTL SCH ×2 (08:13→21:08)
[2020-08-29] MEDS: BRIMONIDINE 0.2% (ALPHAGAN) OPHTH SOLN 5 ML BTL OU SCH (08:14)
--- NOTE | 2020-08-29 09:14 | Occupational Ther Daily Note ---
OT Current Status-Daily Note Subjective Pt alert, sitting in recliner. Pt c/o pain in back and rest of body, 05/30. Reported to nrsg and nrsg brought meds. Pt took increased time to complete tasks due to low activity tolerance and pain. Mental Status/Objective Patient Orientation: Person, Place, Time, [place] Attachments: IV, Oxygen (2L) ADL-Treatment Pt ambulated to EOB to find clothing in bag then completed dressing. Independent with upper body and footwear. SBA for lower body when standing to hike over hips. Pt then ambulated to bathroom and sat at sink to complete grooming and oral care. Nrsg came in to start IV and give meds. Therapy Code Descriptions/Definitions Functional [place] Measure: 0=Not Assessed/NA 4=Minimal Assistance 1=Total Assistance 5=Supervision or Setup 2=Maximal Assistance 6=Modified [place] 3=Moderate Assistance 7=Complete IndependenceSCALE: Activities may be completed with or without assistive devices. 2-Iditctwxjn-iumbzco completes the activity by him/herself with no assistance from a helper. 5-Set-up or Clean-up Assistance-helper sets up or cleans up; patient completes activity. [place] assists only prior to or following the activity. 4-Supervision or Touching Assistance-helper provides verbal cues and/or touching/steadying and/or contact guard assistance as patient completes activity. Assistance may be provided throughout the activity or intermittently. 3-Partial/Moderate Assistance-helper does LESS THAN HALF the effort. [place] lifts, holds or supports trunk or limbs, but provides less than half the effort. 2-Substantial/Maximal Assistance-helper does MORE THAN HALF the effort. [place] lifts or holds trunk or limbs and provides more than half the effort. 0-Lxayyjblx-sigkaj does ALL the effort. Patient does none of the effort to complete the activity. Or, the assistance of 2 or more helpers is required for the patient to complete the activity. If activity was not attempted, code reason: 7-Patient Refused. 9-Not Applicable-not attempted and the patient did not perform the activity before the current illness, exacerbation or injury. 10-Not Attempted due to Environmental Limitations-(lack of equipment, weather restraints, etc.). 88-Not Attempted due to Medical Conditions or Safety Concerns. Oral Hygiene (QC): 6 Shower/Bathe Self (QC): 7 Upper Body Dressing (QC): 6 Lower Body Dressing (QC): 4 On/Off Footwear: 6 Other Treatment Pt completed resistive clothes pins 1x with each hand to increase dietary aid/pinch strength and reaching against gravity to increase B UE strength for daily functional tasks. Pt took multiple recovery breaks throughout session. After session, pt lying in bed with call light/phone in reach. All needs met in room. OT Deputy Head Goals Deputy Head Goals Time Frame: Sep 19, 2020 Eating (QC): 6 Oral Hygiene (QC): 6 Toileting Hygiene (QC): 6 Shower/Bathe Self (QC): 6 Upper Body Dressing (QC): 6 Lower Body Dressing (QC): 6 On/Off Footwear (QC): 6 Additional Goals: 1-Demonstrate ADL Tasks, 2-Verbalize Understanding, 3- ImproveStrength/[place] 1=Demonstrate adherence to instructed precautions during ADL tasks. 2=Patient will verbalize/demonstrate understanding of assistive devices/modifications for ADL. 3=Patient will improve strength/tolerance for activity to enable patient to perform ADL's. OT Education/Plan Problem List/Assessment Assessment: Decreased Activ Tolerance, Decreased UE Strength, Impaired Self- Care Skills Discharge Recommendations Plan/Recommendations: Continue POC Treatment Plan/Plan of Care Patient would benefit from OT for education, treatment and training to promote independence in ADL's, mobility, safety and/or upper extremity function for ADL's. Plan of Care: ADL Retraining, Functional Mobility, Group Exercise/Act as Ind, UE Funct Exercise/Act Treatment Duration: Sep 19, 2020 Frequency: At least 5 of 7 days/Wk (IRF) Estimated Hrs Per Day: 1.5 hours per day Agreement: Yes Rehab Potential: Fair Time/GCodes Start Time: 07:45 Stop Time: 08:45 Total Time Billed (hr/min): 60 Billed Treatment Time 1 visit-ADL 3 (50 min) EX 1 (10 min) MIKA SUE Aug 29, 2020 09:14
--- NOTE | 2020-08-29 10:00 | Physical Therapy Daily Note ---
PT Daily Note-Current Subjective Pt. agrees to Rx. Feels she has made progress , declines up down stairs stating she has a ramp at home Pain Location: No Pain Reported Mental Status Patient Orientation: Normal For Age Attachments: Oxygen (2L), Other-See Comments (mask, cast shoes bilat) Transfers SCALE: Activities may be completed with or without assistive devices. 1-Jokoexstvn-jmelmkx completes the activity by him/herself with no assistance from a helper. 5-Set-up or Clean-up Assistance-helper sets up or cleans up; patient completes activity. [place] assists only prior to or following the activity. 4-Supervision or Touching Assistance-helper provides verbal cues and/or touching/steadying and/or contact guard assistance as patient completes activity. Assistance may be provided throughout the activity or intermittently. 3-Partial/Moderate Assistance-helper does LESS THAN HALF the effort. [place] lifts, holds or supports trunk or limbs, but provides less than half the effort. 2-Substantial/Maximal Assistance-helper does MORE THAN HALF the effort. [place] lifts or holds trunk or limbs and provides more than half the effort. 9-Iniqkryvf-eihhhg does ALL the effort. Patient does none of the effort to complete the activity. Or, the assistance of 2 or more helpers is required for the patient to complete the activity. If activity was not attempted, code reason: 7-Patient Refused. 9-Not Applicable-not attempted and the patient did not perform the activity before the current illness, exacerbation or injury. 10-Not Attempted due to Environmental Limitations-(lack of equipment, weather restraints, etc.). 88-Not Attempted due to Medical Conditions or Safety Concerns. Roll Left & Right (QC): 6 Sit to Lying (QC): 6 Lying to Sitting/Side of Bed(Q: 6 Sit to Stand (QC): 6 Chair/Upf-qc-Achnl Xfer(QC): 6 needs reminders for safe chair approach with FWW kat when she is tired, also reminders about O2 tube safety while turning and approaching the chair Weight Bearing Right Lower Extremity: Right Full Weight Bearing Left Lower Extremity: Left Full Weight Bearing Gait Training Does the Patient Walk?: Yes Walk 10 feet (QC): 5 Walk 50 ft with 2 Turns(QC): 5 Gait Persons Needed: 1 Gait Assistive Device: FWW assist for portable O2, pt fatigues and requests seated breaks Stair Training Stair Training: Handrails/: uses walker #of Steps: 1 Stairs: Pattern: Step to up down 1 small step CGA and instructions Exercises Supine Ex: Bridging, Ankle pumps, Quad Set, Rolling, Glut sets, Heel Slides, Short Arc Quads, Scooting, Straight leg raise, Hip abd/add Supine Reps: 15 Seated Therapy Exercises: Ankle pumps, Sit to stand, Long arc quads, Hip flexion, Hip abd/add Seated Reps: 10 NuStep Minutes: 10 NuStep Workload: 4 Assessment Current Status: Good Progress PT Short Term Goals Short Term Goals Time Frame: Sep 02, 2020 Sit to lyin Lying to sitting on side of be: 6 Sit to stand: 5 Walk 50 feet with two turns: 4 Walk 150 feet: 4 PT Toe Closing Machine Tender Goals Correction Goals PT Correction Goals Time Frame: Sep 16, 2020 Roll Left & Right (QC): 6 Sit to Lying (QC): 6 Lying-Sitting on Side/Bed(QC): 6 Sit to Stand (QC): 6 Chair/Vbm-ly-Iobdu Xfer(QC): 6 Toilet Transfer (QC): 6 Car Transfer (QC): 6 Does the Patient Walk: Yes Walk 10 feet (QC): 6 Walk 50ft with 2 Turns (QC): 6 Walk 150 ft (QC): 5 Walking 10ft on Uneven Surface: 5 1 Step (curb) (QC): 6 4 Steps (QC): 4 12 Steps (QC): 4 Picking up an Object (QC): 4 Does the Pt use WC or Scooter?: Yes Wheel 50 feet with 2 turns (QC: 6 Type: Manual Wheel 150 feet: 6 Type: Manual PT Plan Treatment/Plan Treatment Plan: Continue Plan of Care Treatment Plan: Bed Mobility, Education, Functional Activity Chencho, Functional Strength, Group Therapy, Gait, Safety, Therapeutic Exercise, Transfers Treatment Duration: Sep 16, 2020 Frequency: At least 5 of 7 days/Wk (IRF) Estimated Hrs Per Day: 1.5 hours per day Patient and/or Family Agrees t: Yes Safety Risks/Education Patient Education: Gait Training, Transfer Techniques, Steps, Correct Positioning, Disease Process, Safety Issues Teaching Recipient: Patient Teaching Methods: Demonstration, Discussion Response to Teaching: Verbalize Understanding, Return Demonstration, Reinforcement Needed Time/GCodes Time In: 900 Time Out: 1000 Total Billed Treatment Time: 60 Total Billed Treatment 1,GT20m,FA15m,EX25m SOFIA MEEK [employer] Aug 29, 2020 10:00
[2020-08-29] MEDS: RT-ALBUTEROL SULF 2.5 MG/3 ML PRE-MIX VIAL INH SCH ×2 (10:22→18:45)
[2020-08-29] MEDS: UMECLIDINIUM BROMIDE (INCRUSE ELLIPTA) 7'S IH SCH (10:22)
--- NOTE | 2020-08-29 10:47 | PM&R Progress Note ---
Subjective HPI/CC On Admission Date Seen by Provider: Aug 29, 2020 Time Seen by Provider: 12:30 Subjective/Events-last exam 08/29/20: Nausea persists Patient has a very flat affect but appears chronic Anxiety is a large component in her disability 08/28/20: Nausea continued and chose not to take Compazine and after I spoke to her about being proactive and take the Compazine she agreed to take it BP low at SBP 84 so holding those meds Loose stools Potassium 5.5 stopping potassium supplement, continuing Spironolactone Zofran and Compazine helping with nausea Appreciate Dr. Snyder and Dr. Eid Monitoring diarrhea Checked meds and labs Conferred with RN Reviewed therapy notes Review of Systems General: Fatigue Gastrointestinal: Nausea Musculoskeletal: back pain Objective Exam Vital Signs Vital Signs Date Time Temp Pulse Resp B/P (MAP) Pulse Ox O2 Delivery O2 Flow Rate FiO2 08/30/20 05:16 36.0 81 18 104/57 (73) 97 Nasal Cannula 2.00 Capillary Refill : Less Than 3 Seconds General Appearance: No Apparent Distress, WD/WN, Chronically ill, Obese HEENT: PERRL/EOMI, Normal ENT Inspection Neck: Non Tender, Supple Respiratory: Chest Non Tender, No Accessory Muscle Use, No Respiratory Distress Cardiovascular: Regular Rate, Rhythm, No JVD Gastrointestinal: Normal Bowel Sounds, No Organomegaly, No Pulsatile Mass, Non Tender, Soft Back: Normal Inspection, No CVA Tenderness, Decreased Range of Motion Extremity: Normal Inspection, No Calf Tenderness Neurologic/Psychiatric: Alert, Oriented x3, Normal Mood/Affect Skin: Normal Color, Warm/Dry Lymphatic: No Adenopathy Results/Procedures Lab Patient resulted labs reviewed. FIM Transfers Therapy Code Descriptions/Definitions Functional [place] Measure: 0=Not Assessed/NA 4=Minimal Assistance 1=Total Assistance 5=Supervision or Setup 2=Maximal Assistance 6=Modified [place] 3=Moderate Assistance 7=Complete IndependenceSCALE: Activities may be completed with or without assistive devices. 8-Hrknqgtyaz-kvqkxhx completes the activity by him/herself with no assistance from a helper. 5-Set-up or Clean-up Assistance-helper sets up or cleans up; patient completes activity. [place] assists only prior to or following the activity. 4-Supervision or Touching Assistance-helper provides verbal cues and/or touching/steadying and/or contact guard assistance as patient completes activity. Assistance may be provided throughout the activity or intermittently. 3-Partial/Moderate Assistance-helper does LESS THAN HALF the effort. [place] lifts, holds or supports trunk or limbs, but provides less than half the effort. 2-Substantial/Maximal Assistance-helper does MORE THAN HALF the effort. [place] lifts or holds trunk or limbs and provides more than half the effort. 0-Cyzjzkzuf-iovuof does ALL the effort. Patient does none of the effort to complete the activity. Or, the assistance of 2 or more helpers is required for the patient to complete the activity. If activity was not attempted, code reason: 7-Patient Refused. 9-Not Applicable-not attempted and the patient did not perform the activity before the current illness, exacerbation or injury. 10-Not Attempted due to Environmental Limitations-(lack of equipment, weather restraints, etc.). 88-Not Attempted due to Medical Conditions or Safety Concerns. Roll Left to Right (QC): 6 Sit to Lying (QC): 6 Sit to Stand (QC): 6 Chair/Qvt-ov-Kgbis Xfer(QC): 6 Car Transfer (QC): 4 Gait Training Does the Patient Walk?: Yes Distance: 100' x 8 Walk 10 feet (QC): 5 Walk 50 ft with 2 Turns(QC): 5 Walk 150 ft (QC): 4 Walking 10ft/uneven surface-QC: 4 Gait Persons Needed: 1 Gait Assistive Device: FWW Wheelchair Training Does the Pt Use a Wheelchair?: Yes Distance: 75' Wheel 50 ft with 2 turns (QC): 4 Wheel 150 ft (QC): 88 Type of Wheelchair: Manual Stair Training Stair Training: Handrails/: uses walker #of Steps: 1 1 Step (curb) (QC): 4 4 Steps (QC): 88 12 Steps (QC): 88 Stairs: Pattern: Step to Balance Picking up an Object (QC): 3 ADL-Treatment Eating (QC): 6 Oral Hygiene (QC): 6 Bathing Location: L Arm, R Arm, L Upper Leg, R Upper Leg, L Lower Leg (including foot), R Lower Leg (including foot), Chest, Abdomen, Buttocks, Perineal Area Shower/Bathe Self (QC): 7 Upper Body Dressing (QC): 6 Lower Body Dressing (QC): 4 On/Off Footwear (QC): 6 Toileting Hygiene (QC): 7 Toilet Transfer (QC): 7 Assessment/Plan Assessment and Plan Assess & Plan/Chief Complaint Assessment: Myopathy Discitis on Ancef until 09/03/20 DM Right DM foot ulcer HTN HLP O2 dependent MARY ANN PLan: DM management IRF protocol Pain management 08/27/20: Stop Potassium due to level of 5.5 Use zofran and Compazine Appreciate Dr. Snyder consultation Appreciated Dr. Eid consultation Monitor diarrhea 08/28/20: Monitor nausea Compazine IRF protocol 08/29/20: Nausea management Monitor sugar Monitor BP Doing well Chronically ill and debilitated (1) Myopathy (2) Diabetic foot ulcer (3) Diabetes (4) Chronic pain (5) Nausea (6) MARY ANN (obstructive sleep apnea) (7) Oxygen dependent (8) Discitis ЕЛЕНА CRUZ DO Aug 29, 2020 10:47
[2020-08-29] MEDS: FENTANYL PATCH REMOVAL TP SCH (12:18)
[2020-08-29] MEDS: fentaNYL PATCH 50 MCG (DURAGESIC) TD SCH (12:18)
--- NOTE | 2020-08-29 13:08 | Progress Note - Surgery ---
RADHA WOOD MED STUDENT 08/29/20 1308: Subjective Time Seen by a Provider: 13:00 Subjective/Events-last exam Patient seen and examined this afternoon. She states she is feeling better than yesterday. Her nausea has decreased and she has not had any vomiting since last night. Her diarrhea has slowed down as well. She denies fever, chills, shortness of breath, chest pain or abdominal pain. Review of Systems General: No Chills, No Malaise Pulmonary: No Dyspnea, No Cough Cardiovascular: No: Chest Pain, Edema Gastrointestinal: Nausea; No: Vomiting, Abdominal Pain, Diarrhea Objective Exam Vital Signs Date Time Temp Pulse Resp B/P (MAP) Pulse Ox O2 Delivery O2 Flow Rate FiO2 08/29/20 10:23 99 Nasal Cannula 2.00 08/29/20 09:00 Nasal Cannula 2.00 08/29/20 05:59 36.0 85 18 113/65 (81) 99 Nasal Cannula 2.00 08/28/20 21:00 Nasal Cannula 2.00 08/28/20 17:30 37.2 98 20 109/63 (78) 93 Nasal Cannula 2.00 I & O 08/29/20 07:00 Intake Total 1630 ml Balance 1630 ml Capillary Refill : Less Than 3 Seconds General Appearance: No Apparent Distress, WD/WN, Chronically ill, Obese HEENT: PERRL/EOMI Respiratory: No Accessory Muscle Use, No Respiratory Distress Cardiovascular: Regular Rate, Rhythm, No Edema Peripheral Pulses: 2+ Radial Pulses (R), 2+ Radial Pulses (L) Gastrointestinal: soft, distended (minimal); No tenderness; hernia (reducible epigastric) Extremity: No Calf Tenderness, No Pedal Edema Neurologic/Psychiatric: Alert, Normal Mood/Affect Skin: Normal Color, Warm/Dry Lymphatic: No Adenopathy Results Lab Laboratory Tests 08/28/20 17:08: Glucometer 227H 08/28/20 20:11: Glucometer 230H 08/29/20 05:56: Glucometer 163H 08/29/20 10:55: Glucometer 243H Assessment/Plan Assessment/Plan Assessment/Plan Nausea- improving, likely multifactorial, continue to encourage oral hydration and nutrition, zofran if needed for symptomatic control Diarrhea- improving, likely from fpc antibiotics Osteomyelitis L2-L3- continue fpc antibiotics Epigastric Hernia- reducible, no pain, can fix electively in pt desires DM no surgical intervention at this time. Clinical Quality Measures DVT/VTE Risk/Contraindication: Risk Factor Score Per Nursin RFS Level Per Nursing on Admit: 4+=Very High EKATERINA EID DO 08/29/20 1631: Subjective Date Seen by a Provider: Aug 29, 2020 Subjective/Events-last exam Feeling better today. Less nausea. Less diarrhea stools more soft. Tolerating diet better. Denies any other complaints at this time. Denies fever sweats c [place] shortness of breath or chest pain. Objective Exam General Appearance: No Apparent Distress, Chronically ill, Obese HEENT: PERRL/EOMI, Normal ENT Inspection Neck: Full Range of Motion, Normal Inspection Respiratory: No Accessory Muscle Use, No Respiratory Distress Cardiovascular: Regular Rate, Rhythm, No JVD Gastrointestinal: soft, distended (minimal); No tenderness; hernia (reducible epigastric) Extremity: No Calf Tenderness Neurologic/Psychiatric: Alert, Oriented x3, Normal Mood/Affect Skin: Normal Color, Warm/Dry Lymphatic: No Adenopathy Assessment/Plan Assessment/Plan Assessment/Plan Nausea- improving, likely multifactorial, continue to encourage oral hydration and nutrition, zofran if needed for symptomatic control Diarrhea- improving, likely from fpc antibiotics Osteomyelitis L2-L3- continue fpc antibiotics Epigastric Hernia- reducible, no pain, can fix electively in pt desires DM feeling better today than yesterday continue to monitor and treat symptomatically no surgical intervention at will follow. Supervisory-Addendum Brief Verification & Attestation Participated in pt care: history, MDM, physical Personally performed: exam, history, MDM, supervision of care Care discussed with: Medical Student Procedures: n/a Results interpretation: Verified all documentation Verification and Attestation of Medical Student E/M Service A medical student performed and documented this service in my presence. I reviewed and verified all information documented by the medical student and made modifications to such information, when appropriate. I personally performed the physical exam and medical decision making. Ekaterina Eid, Aug 29, 2020,16:39 RADHA WOOD MED STUDENT Aug 29, 2020 13:08 EKATERINA EID DO Aug 29, 2020 16:31
--- NOTE | 2020-08-29 14:18 | Therapy Group Daily Note ---
Therapy Daily Group Note Patient Education Topic Other List Below (ARU orientation, planning for DC) Exercises LE Seated Exercise, UE Exercise Session Ratio (pt:therapist): 4:1 Goal of Session: Education on ARU Expectations, Memory Strategies, UE/LE Strengthing Goal Met for this Session: Yes Pt Benefit of Group: Contributions to Others, F/U Use of Strategies @Home, Increased Functional Strength, Recognition of Peers, Socialization Other/Notes Pt. participated in group PT OT session this date. Pt. ambulated to and from with CGA. Pt. was social, introduced herself and shared "how she made her first dollar" Pts were educated on ARU practices and expectations. Seated U&L extremity exercises were done with some being lead by patients who were willing to share exercises the y either used at home or have learned here and have incorporated in to their routine. Pts. participated in memory challenge by establishing 3 categories and 3 words in the beginning of the group session then recalling them later. Pt. returned to room and to bed with assist and valle at hand Start Time: 13:00 Stop Time: 14:10 Total Billed Treatment Time: 70 Total Billed Treatment 1,GRP SOFIA MEEK CRUISE DIRECTOR Aug 29, 2020 14:18
[2020-08-29] MEDS: ENOXAPARIN 40 MG/0.4 ML (LOVENOX) SYR SC SCH (17:09)
[2020-08-29] MEDS: ONDANSETRON 4 MG (ZOFRAN) ORAL DISSOLVE TAB PO PRN (17:09)
[2020-08-29] MEDS: fluCOnazole (DIFLUCAN) 100 MG TAB PO SCH (17:09)
[2020-08-29 18:00] VITALS: BP 114/62
[2020-08-29] MEDS: BETAMETHASONE DIPRO (AUGMENTED) 0.05% CREAM 15 GM TOP SCH (19:52)
[2020-08-29] MEDS: MONTELUKAST 10 MG (SINGULAIR) TAB PO SCH (20:59)
[2020-08-29] MEDS: FENOFIBRATE, MICRO 67 MG (LOFIBRA) CAPSULE PO SCH (21:00)
[2020-08-29] MEDS: MIRTAZAPINE 15 MG (REMERON) TAB PO SCH (21:01)
[2020-08-29] MEDS: LATANOPROST 0.005% (XALATAN) OPHTH SOLN 2.5 ML OU SCH (21:03)
[2020-08-30] MEDS: ceFAZolin 2 GM/50 ML (PRE-MIXED) IV SCH ×3 (01:26→17:22)
[2020-08-30 05:16] VITALS: BP 104/57
[2020-08-30] MEDS: predniSONE 10 MG TAB PO SCH (06:51)
[2020-08-30] MEDS: VITAMIN D3 25 MCG (1,000 UNITS) TABLET PO SCH (06:51)
[2020-08-30] MEDS: MULTIVIT W/MINERALS TAB (THERAGRAN M) PO SCH (06:51)
[2020-08-30] MEDS: CALCIUM CARBONATE 600 MG (CALCARB) TAB PO SCH (06:52)
[2020-08-30] MEDS: FUROSEMIDE 40 MG (LASIX) TAB PO SCH (06:52)
[2020-08-30] MEDS: RIFAMPIN 150 MG (RIFADIN) CAP PO SCH ×3 (06:52→21:33)
[2020-08-30] MEDS: inSUlin ASPART (NovoLOG) 1 UNIT/0.01 ML (CHARGE PER UNIT) SC SCH ×4 (06:57→21:32)
[2020-08-30] MEDS: UMECLIDINIUM BROMIDE (INCRUSE ELLIPTA) 7'S IH SCH (07:10)
[2020-08-30] MEDS: RT-ALBUTEROL SULF 2.5 MG/3 ML PRE-MIX VIAL INH SCH ×2 (07:10→18:46)
--- NOTE | 2020-08-30 08:53 | Progress Note - Surgery ---
RADHA WOOD MED STUDENT 08/30/20 0853: Subjective Time Seen by a Provider: 07:50 Subjective/Events-last exam Pt communicating and fully oriented. Pt states nausea, vomiting and diarrhea continue to improve. Pt had some post-prandial nausea this morning with breakfest but did not vomit. Pt has not vomited in two days. Pt states diarrhea is improving too- she having too pass stool less frequently each day. Denies abd pain, chest pain, palpitations and dysuria. 6/10 LLQ abd pain elicited on PE. Review of Systems General: No Chills, No Night Sweats HEENT: No Dysphasia, No Sore Throat Pulmonary: No Dyspnea, No Pleuritic Chest Pain Cardiovascular: No: Chest Pain, Palpitations Gastrointestinal: Nausea, Vomiting, Diarrhea; No: Abdominal Pain, Constipation Genitourinary: No Dysuria, No Incontinence Musculoskeletal: back pain Objective Exam Vital Signs Date Time Temp Pulse Resp B/P (MAP) Pulse Ox O2 Delivery O2 Flow Rate FiO2 08/30/20 07:10 99 Nasal Cannula 1.50 08/30/20 05:16 36.0 81 18 104/57 (73) 97 Nasal Cannula 2.00 08/29/20 20:10 Nasal Cannula 2.00 08/29/20 18:00 36.2 83 16 114/62 (79) 100 Nasal Cannula 2.00 08/29/20 10:23 99 Nasal Cannula 2.00 08/29/20 09:00 Nasal Cannula 2.00 I & O 08/30/20 07:00 Intake Total 1345 ml Balance 1345 ml Capillary Refill : Less Than 3 Seconds General Appearance: No Apparent Distress, WD/WN, Chronically ill Respiratory: Chest Non Tender, Lungs Clear, Normal Breath Sounds, No Accessory Muscle Use, No Respiratory Distress Cardiovascular: Regular Rate, Rhythm, No Edema, No Gallop, No Murmur, Normal Peripheral Pulses Peripheral Pulses: 2+ Radial Pulses (R), 2+ Radial Pulses (L) Gastrointestinal: normal bowel sounds, soft, distended (minimal), tenderness (6/10 LLQ abd pain elictied on PE), hernia (reducible epigastric) Extremity: Normal Inspection Neurologic/Psychiatric: Alert, Oriented x3, Normal Mood/Affect Skin: Normal Color, Warm/Dry Results Lab Laboratory Tests 08/29/20 10:55: Glucometer 243H 08/29/20 15:26: Glucometer 238H 08/29/20 20:13: Glucometer 248H 08/30/20 06:50: Glucometer 172H Assessment/Plan Assessment/Plan Assessment/Plan Nausea/vomitting- improving, likely multifactorial, continue hydration and nutrition, continue ondansetron and prochlorperazine. Pt continues to feel better in bother facets of N/V and diarrhea. Consider no intervention at this time but continue to monitor pt. Diarrhea- improving, likely from halfway antibiotics, pt passing stool less frequently. Osteomyelitis L2-L3- continue halfway antibiotics Epigastric Hernia- reducible, no pain, can fix electively once pts acute status improves. Clinical Quality Measures DVT/VTE Risk/Contraindication: Risk Factor Score Per Nursin RFS Level Per Nursing on Admit: 4+=Very High QUAN DYER DO 08/30/20 1255: Subjective Time Seen by a Provider: 12:22 Subjective/Events-last exam Pt seen and examined, states had some nausea today. She thinks everything is improving. Tolerating lunch. Review of Systems General: No Chills, No Night Sweats Cardiovascular: No: Chest Pain, Palpitations Gastrointestinal: Nausea, Diarrhea (less than before); No: Vomiting Objective Exam General Appearance: No Apparent Distress, Obese Respiratory: Lungs Clear, Normal Breath Sounds, No Accessory Muscle Use, No Respiratory Distress Cardiovascular: Regular Rate, Rhythm, No Murmur Gastrointestinal: soft, tenderness (6/10 LLQ abd pain elictied on PE) Neurologic/Psychiatric: Alert, Oriented x3 Assessment/Plan Assessment/Plan Assessment/Plan N/V Abdominal pain Everything seems to be improving, most likely symptoms were due to the ABX she was taking. Will sign off and can resee if needed. Supervisory-Addendum Brief Verification & Attestation Participated in pt care: history, MDM, physical Personally performed: exam, history, MDM Care discussed with: Medical Student Procedures: n/a Verification and Attestation of Medical Student E/M Service A medical student performed and documented this service. I then reviewed and verified all information documented by the medical student and made modifications to such information, when appropriate. I personally performed a physical exam, medical decision making and then discussed any differences between the notes and made revisions as necessary to create one note. Quan Dyer , 08/30/20 , 12:55 RADHA WOOD STUDENT Aug 30, 2020 08:53 QUAN DYER DO Aug 30, 2020 12:55
[2020-08-30] MEDS: SENNA W/DOCUSATE (SENOKOT S) TABLET PO SCH ×2 (09:12→20:00)
[2020-08-30] MEDS: polyethylene glycoL POWDER 17 GM (MIRALAX) PACK PO SCH ×2 (09:12→20:00)
[2020-08-30] MEDS: DOCUSATE SODIUM 100 MG (COLACE) CAP PO SCH ×2 (09:12→20:00)
[2020-08-30] MEDS: SPIRONOLACTONE 25 MG (ALDACTONE) TAB PO SCH ×2 (09:13→21:33)
[2020-08-30] MEDS: PARoxetine 20 MG (PAXIL) TAB PO SCH (09:13)
[2020-08-30] MEDS: PENTOXIFYLLINE ER 400 MG (TRENtal) TAB PO SCH ×3 (09:13→21:33)
[2020-08-30] MEDS: PANTOPRAZOLE 40 MG (PROTONIX) TAB PO SCH (09:13)
[2020-08-30] MEDS: LORATADINE (CLARITIN) 10 MG TAB PO SCH (09:13)
[2020-08-30] MEDS: PREGABALIN 100 MG (LYRICA) CAPSULE PO SCH ×2 (09:13→21:32)
[2020-08-30] MEDS: QUEtiapine 25 MG (SEROquel) TAB IMMEDIATE RELEASE PO SCH ×2 (09:13→21:33)
[2020-08-30] MEDS: LACTOBACILLUS ACIDOPHILUS (PROBIOTIC) CAPSULE PO SCH ×3 (09:13→21:33)
[2020-08-30] MEDS: lisINopril 5 MG (PRINIVIL) TABLET PO SCH (09:13)
[2020-08-30] MEDS: MELOXICAM 7.5 MG (MOBIC) TABLET PO SCH (09:14)
[2020-08-30] MEDS: SALINE NASAL SPRAY (OCEAN) 45 ML BTL SCH ×2 (09:14→20:01)
[2020-08-30] MEDS: FLUTICASONE NASAL SPRAY (FLONASE) 16 GM BTL NS SCH ×2 (09:14→21:41)
[2020-08-30] MEDS: BRIMONIDINE 0.2% (ALPHAGAN) OPHTH SOLN 5 ML BTL OU SCH (09:15)
[2020-08-30] MEDS: COLLAGENASE 30 GM (SANTYL) TUBE TP SCH (09:16)
[2020-08-30] MEDS: DICLOFENAC 1% GEL 100 GM (VOLTAREN) TUBE TP SCH ×2 (09:16→20:00)
--- NOTE | 2020-08-30 10:05 | Physical Therapy Daily Note ---
PT Daily Note-Current Subjective Patient in bed pre tx, agrees to PT, has no complaints of pain Appearance Patient in bed post tx with nurse call, phone, tray, all needs met. Mental Status Patient Orientation: Person, Place, Situation Attachments: Oxygen, IV Transfers SCALE: Activities may be completed with or without assistive devices. 7-Irpbceprko-nolecxs completes the activity by him/herself with no assistance from a helper. 5-Set-up or Clean-up Assistance-helper sets up or cleans up; patient completes activity. [place] assists only prior to or following the activity. 4-Supervision or Touching Assistance-helper provides verbal cues and/or touching/steadying and/or contact guard assistance as patient completes activity. Assistance may be provided throughout the activity or intermittently. 3-Partial/Moderate Assistance-helper does LESS THAN HALF the effort. [place] lifts, holds or supports trunk or limbs, but provides less than half the effort. 2-Substantial/Maximal Assistance-helper does MORE THAN HALF the effort. [place] lifts or holds trunk or limbs and provides more than half the effort. 5-Hknnixabz-mzimao does ALL the effort. Patient does none of the effort to complete the activity. Or, the assistance of 2 or more helpers is required for the patient to complete the activity. If activity was not attempted, code reason: 7-Patient Refused. 9-Not Applicable-not attempted and the patient did not perform the activity before the current illness, exacerbation or injury. 10-Not Attempted due to Environmental Limitations-(lack of equipment, weather restraints, etc.). 88-Not Attempted due to Medical Conditions or Safety Concerns. Roll Left & Right (QC): 6 Sit to Lying (QC): 5 Lying to Sitting/Side of Bed(Q: 5 Sit to Stand (QC): 4 Chair/Gdy-co-Fcgrm Xfer(QC): 4 Weight Bearing Right Lower Extremity: Right Full Weight Bearing Left Lower Extremity: Left Full Weight Bearing Gait Training Distance: 50'x2 Walk 10 feet (QC): 4 Walk 50 ft with 2 Turns(QC): 4 Gait Persons Needed: 1 Gait Assistive Device: FWW slow ambulation, shaky, CGA, seated rest break between bouts of ambulation Exercises Seated Therapy Exercises: Ankle pumps, Long arc quads Seated Reps: 20 Treatments bed mobility and transfers, ambulation, LE ROM Assessment Current Status: Fair Progress slowly improving endurance PT Short Term Goals Short Term Goals Time Frame: Sep 02, 2020 Sit to lyin Lying to sitting on side of be: 6 Sit to stand: 5 Walk 50 feet with two turns: 4 Walk 150 feet: 4 PT Stage Builder Goals [facility] Goals PT Stage Builder Goals Time Frame: Sep 16, 2020 Roll Left & Right (QC): 6 Sit to Lying (QC): 6 Lying-Sitting on Side/Bed(QC): 6 Sit to Stand (QC): 6 Chair/Xfo-cr-Kknik Xfer(QC): 6 Toilet Transfer (QC): 6 Car Transfer (QC): 6 Does the Patient Walk: Yes Walk 10 feet (QC): 6 Walk 50ft with 2 Turns (QC): 6 Walk 150 ft (QC): 5 Walking 10ft on Uneven Surface: 5 1 Step (curb) (QC): 6 4 Steps (QC): 4 12 Steps (QC): 4 Picking up an Object (QC): 4 Does the Pt use WC or Scooter?: Yes Wheel 50 feet with 2 turns (QC: 6 Type: Manual Wheel 150 feet: 6 Type: Manual PT Plan Problem List Problem List: Activity Tolerance, Functional Strength, Safety, Balance, Gait, Transfer, Bed Mobility, ROM Treatment/Plan Treatment Plan: Continue Plan of Care Treatment Plan: Bed Mobility, Education, Functional Activity [place], Functional Strength, Group Therapy, Gait, Safety, Therapeutic Exercise, Transfers Treatment Duration: Sep 16, 2020 Frequency: At least 5 of 7 days/Wk (IRF) Estimated Hrs Per Day: 1.5 hours per day Patient and/or Family Agrees t: Yes Safety Risks/Education Patient Education: Gait Training, Transfer Techniques, Correct Positioning, Safety Issues Teaching Recipient: Patient Teaching Methods: Demonstration, Discussion Response to Teaching: Reinforcement Needed Time/GCodes Time In: 0950 Time Out: 1004 Total Billed Treatment Time: 14 Total Billed Treatment 1 visit FA SEAN DOW PT Aug 30, 2020 10:05
[2020-08-30] MEDS: PROCHLORPERAZINE 10 MG TAB (COMPAZINE) PO PRN ×2 (10:09→19:14)
--- NOTE | 2020-08-30 12:23 | PM&R Progress Note ---
Subjective HPI/CC On Admission Date Seen by Provider: Aug 30, 2020 Time Seen by Provider: 12:30 Subjective/Events-last exam 08/30/20: Good day today Nausea is improved Sugar 262 before lunch Fentanyl patch good for pain Foot wound is good 08/29/20: Nausea persists Patient has a very flat affect but appears chronic Anxiety is a large component in her disability 08/28/20: Nausea continued and chose not to take Compazine and after I spoke to her about being proactive and take the Compazine she agreed to take it BP low at SBP 84 so holding those meds Loose stools Potassium 5.5 stopping potassium supplement, continuing Spironolactone Zofran and Compazine helping with nausea Appreciate Dr. Snyder and Dr. Eid Monitoring diarrhea Checked meds and labs Conferred with RN Reviewed therapy notes Review of Systems General: Fatigue Objective Exam Vital Signs Vital Signs Date Time Temp Pulse Resp B/P (MAP) Pulse Ox O2 Delivery O2 Flow Rate FiO2 08/31/20 05:06 36.0 75 18 96/56 (69) 97 Nasal Cannula 2.00 Capillary Refill : Less Than 3 Seconds General Appearance: No Apparent Distress, WD/WN, Chronically ill Respiratory: Chest Non Tender, Lungs Clear, Normal Breath Sounds, No Accessory Muscle Use, No Respiratory Distress Cardiovascular: Regular Rate, Rhythm, No Edema, No Gallop, No Murmur, Normal Peripheral Pulses Gastrointestinal: Normal Bowel Sounds, No Organomegaly, No Pulsatile Mass, Non Tender, Soft Back: Normal Inspection, No CVA Tenderness, Decreased Range of Motion Extremity: Normal Inspection Neurologic/Psychiatric: Alert, Oriented x3, Normal Mood/Affect Skin: Normal Color, Warm/Dry Results/Procedures Lab Patient resulted labs reviewed. FIM Transfers Therapy Code Descriptions/Definitions Functional [place] Measure: 0=Not Assessed/NA 4=Minimal Assistance 1=Total Assistance 5=Supervision or Setup 2=Maximal Assistance 6=Modified [place] 3=Moderate Assistance 7=Complete IndependenceSCALE: Activities may be completed with or without assistive devices. 1-Fbmteeholw-xxjfehs completes the activity by him/herself with no assistance from a helper. 5-Set-up or Clean-up Assistance-helper sets up or cleans up; patient completes activity. [place] assists only prior to or following the activity. 4-Supervision or Touching Assistance-helper provides verbal cues and/or touching/steadying and/or contact guard assistance as patient completes activity. Assistance may be provided throughout the activity or intermittently. 3-Partial/Moderate Assistance-helper does LESS THAN HALF the effort. [place] lifts, holds or supports trunk or limbs, but provides less than half the effort. 2-Substantial/Maximal Assistance-helper does MORE THAN HALF the effort. [place] lifts or holds trunk or limbs and provides more than half the effort. 9-Uhcbnfqxp-ofhybl does ALL the effort. Patient does none of the effort to complete the activity. Or, the assistance of 2 or more helpers is required for the patient to complete the activity. If activity was not attempted, code reason: 7-Patient Refused. 9-Not Applicable-not attempted and the patient did not perform the activity before the current illness, exacerbation or injury. 10-Not Attempted due to Environmental Limitations-(lack of equipment, weather restraints, etc.). 88-Not Attempted due to Medical Conditions or Safety Concerns. Roll Left to Right (QC): 6 Sit to Lying (QC): 5 Sit to Stand (QC): 4 Chair/Zkg-fz-Vqxme Xfer(QC): 4 Car Transfer (QC): 4 Gait Training Does the Patient Walk?: Yes Distance: 50'x2 Walk 10 feet (QC): 4 Walk 50 ft with 2 Turns(QC): 4 Walk 150 ft (QC): 4 Walking 10ft/uneven surface-QC: 4 Gait Persons Needed: 1 Gait Assistive Device: FWW Wheelchair Training Does the Pt Use a Wheelchair?: Yes Distance: 75' Wheel 50 ft with 2 turns (QC): 4 Wheel 150 ft (QC): 88 Type of Wheelchair: Manual Stair Training Stair Training: Handrails/: uses walker #of Steps: 1 1 Step (curb) (QC): 4 4 Steps (QC): 88 12 Steps (QC): 88 Stairs: Pattern: Step to Balance Picking up an Object (QC): 3 ADL-Treatment Eating (QC): 6 Oral Hygiene (QC): 6 Bathing Location: L Arm, R Arm, L Upper Leg, R Upper Leg, L Lower Leg (including foot), R Lower Leg (including foot), Chest, Abdomen, Buttocks, Perineal Area Shower/Bathe Self (QC): 7 Upper Body Dressing (QC): 6 Lower Body Dressing (QC): 4 On/Off Footwear (QC): 6 Toileting Hygiene (QC): 7 Toilet Transfer (QC): 7 Assessment/Plan Assessment and Plan Assess & Plan/Chief Complaint Assessment: Myopathy Discitis on Ancef until 09/03/20 DM Right DM foot ulcer HTN HLP O2 dependent MARY ANN PLan: DM management IRF protocol Pain management 08/27/20: Stop Potassium due to level of 5.5 Use zofran and Compazine Appreciate Dr. Snyder consultation Appreciated Dr. Eid consultation Monitor diarrhea 08/28/20: Monitor nausea Compazine IRF protocol 08/29/20: Nausea management Monitor sugar Monitor BP Doing well Chronically ill and debilitated 08/30/20: Continue abx IRF protocol Nausea treatment (1) Myopathy (2) Diabetic foot ulcer (3) Diabetes (4) Chronic pain (5) Nausea (6) MARY ANN (obstructive sleep apnea) (7) Oxygen dependent (8) Discitis ЕЛЕНА CRUZ DO Aug 30, 2020 12:23
[2020-08-30 16:00] VITALS: BP 98/50
[2020-08-30] MEDS: ENOXAPARIN 40 MG/0.4 ML (LOVENOX) SYR SC SCH (17:21)
[2020-08-30] MEDS: BETAMETHASONE DIPRO (AUGMENTED) 0.05% CREAM 15 GM TOP SCH (20:00)
[2020-08-30] MEDS: FENOFIBRATE, MICRO 67 MG (LOFIBRA) CAPSULE PO SCH (21:32)
[2020-08-30] MEDS: MONTELUKAST 10 MG (SINGULAIR) TAB PO SCH (21:32)
[2020-08-30] MEDS: MIRTAZAPINE 15 MG (REMERON) TAB PO SCH (21:33)
[2020-08-30] MEDS: LATANOPROST 0.005% (XALATAN) OPHTH SOLN 2.5 ML OU SCH (21:40)
[2020-08-30] MEDS: ONDANSETRON 4 MG (ZOFRAN) ORAL DISSOLVE TAB PO PRN (21:49)
[2020-08-31] MEDS: ceFAZolin 2 GM/50 ML (PRE-MIXED) IV SCH ×3 (01:41→16:59)
[2020-08-31 05:06] VITALS: BP 96/56
[2020-08-31] MEDS: inSUlin ASPART (NovoLOG) 1 UNIT/0.01 ML (CHARGE PER UNIT) SC SCH ×4 (06:48→21:16)
[2020-08-31] MEDS: VITAMIN D3 25 MCG (1,000 UNITS) TABLET PO SCH (06:49)
[2020-08-31] MEDS: predniSONE 10 MG TAB PO SCH (06:49)
[2020-08-31] MEDS: MULTIVIT W/MINERALS TAB (THERAGRAN M) PO SCH (06:49)
[2020-08-31] MEDS: RIFAMPIN 150 MG (RIFADIN) CAP PO SCH ×3 (06:49→21:16)
[2020-08-31] MEDS: CALCIUM CARBONATE 600 MG (CALCARB) TAB PO SCH (06:49)
[2020-08-31] MEDS: FUROSEMIDE 40 MG (LASIX) TAB PO SCH (06:49)
--- NOTE | 2020-08-31 06:59 | PM&R Progress Note ---
Subjective HPI/CC On Admission Date Seen by Provider: Aug 31, 2020 Time Seen by Provider: 12:30 Subjective/Events-last exam 08/31/20: Having a good day No issues Increasing fluids due to concentrated urine Sugar 254 08/30/20: Good day today Nausea is improved Sugar 262 before lunch Fentanyl patch good for pain Foot wound is good 08/29/20: Nausea persists Patient has a very flat affect but appears chronic Anxiety is a large component in her disability 08/28/20: Nausea continued and chose not to take Compazine and after I spoke to her about being proactive and take the Compazine she agreed to take it BP low at SBP 84 so holding those meds Loose stools Potassium 5.5 stopping potassium supplement, continuing Spironolactone Zofran and Compazine helping with nausea Appreciate Dr. Snyder and Dr. Eid Monitoring diarrhea Checked meds and labs Conferred with RN Reviewed therapy notes Review of Systems General: Fatigue, Malaise Objective Exam Vital Signs Vital Signs Date Time Temp Pulse Resp B/P (MAP) Pulse Ox O2 Delivery O2 Flow Rate FiO2 08/31/20 20:10 Nasal Cannula 2.00 08/31/20 17:18 35.6 84 20 109/55 (73) 97 Capillary Refill : Less Than 3 Seconds General Appearance: No Apparent Distress, WD/WN, Chronically ill HEENT: PERRL/EOMI, Normal ENT Inspection, Pharynx Normal Neck: Full Range of Motion, Normal Inspection, Non Tender, Supple Respiratory: Chest Non Tender, Lungs Clear, Normal Breath Sounds, No Accessory Muscle Use, No Respiratory Distress Cardiovascular: Regular Rate, Rhythm, No Edema, No Gallop, No Murmur, Normal Peripheral Pulses Gastrointestinal: Normal Bowel Sounds, No Organomegaly, No Pulsatile Mass, Non Tender, Soft Back: Normal Inspection, No CVA Tenderness, Decreased Range of Motion Extremity: Normal Inspection Neurologic/Psychiatric: Alert, Oriented x3, Normal Mood/Affect Skin: Normal Color, Warm/Dry Results/Procedures Lab Patient resulted labs reviewed. FIM Transfers Therapy Code Descriptions/Definitions Functional [place] Measure: 0=Not Assessed/NA 4=Minimal Assistance 1=Total Assistance 5=Supervision or Setup 2=Maximal Assistance 6=Modified [place] 3=Moderate Assistance 7=Complete IndependenceSCALE: Activities may be completed with or without assistive devices. 1-Azfurizcgi-xvcavbt completes the activity by him/herself with no assistance from a helper. 5-Set-up or Clean-up Assistance-helper sets up or cleans up; patient completes activity. [place] assists only prior to or following the activity. 4-Supervision or Touching Assistance-helper provides verbal cues and/or touching/steadying and/or contact guard assistance as patient completes activ ity. Assistance may be provided throughout the activity or intermittently. 3-Partial/Moderate Assistance-helper does LESS THAN HALF the effort. [place] lifts, holds or supports trunk or limbs, but provides less than half the effort. 2-Substantial/Maximal Assistance-helper does MORE THAN HALF the effort. [place] lifts or holds trunk or limbs and provides more than half the effort. 8-Bxrlqhulh-tsbdqt does ALL the effort. Patient does none of the effort to complete the activity. Or, the assistance of 2 or more helpers is required for the patient to complete the activity. If activity was not attempted, code reason: 7-Patient Refused. 9-Not Applicable-not attempted and the patient did not perform the activity before the current illness, exacerbation or injury. 10-Not Attempted due to Environmental Limitations-(lack of equipment, weather restraints, etc.). 88-Not Attempted due to Medical Conditions or Safety Concerns. Roll Left to Right (QC): 6 Sit to Lying (QC): 5 Sit to Stand (QC): 4 Chair/Ndt-rr-Pjqnt Xfer(QC): 4 Car Transfer (QC): 4 Gait Training Does the Patient Walk?: Yes Distance: 50'x2 Walk 10 feet (QC): 4 Walk 50 ft with 2 Turns(QC): 4 Walk 150 ft (QC): 4 Walking 10ft/uneven surface-QC: 4 Gait Persons Needed: 1 Gait Assistive Device: FWW Wheelchair Training Does the Pt Use a Wheelchair?: Yes Distance: 75' Wheel 50 ft with 2 turns (QC): 4 Wheel 150 ft (QC): 88 Type of Wheelchair: Manual Stair Training Stair Training: Handrails/: uses walker #of Steps: 1 1 Step (curb) (QC): 4 4 Steps (QC): 88 12 Steps (QC): 88 Stairs: Pattern: Step to Balance Picking up an Object (QC): 3 ADL-Treatment Eating (QC): 6 Oral Hygiene (QC): 6 Bathing Location: L Arm, R Arm, L Upper Leg, R Upper Leg, L Lower Leg (including foot), R Lower Leg (including foot), Chest, Abdomen, Buttocks, Perineal Area Shower/Bathe Self (QC): 7 Upper Body Dressing (QC): 6 Lower Body Dressing (QC): 4 On/Off Footwear (QC): 6 Toileting Hygiene (QC): 7 Toilet Transfer (QC): 7 Assessment/Plan Assessment and Plan Assess & Plan/Chief Complaint Assessment: Myopathy Discitis on Ancef until 09/03/20 DM Right DM foot ulcer HTN HLP O2 dependent MARY ANN PLan: DM management IRF protocol Pain management 08/27/20: Stop Potassium due to level of 5.5 Use zofran and Compazine Appreciate Dr. Snyder consultation Appreciated Dr. Eid consultation Monitor diarrhea 08/28/20: Monitor nausea Compazine IRF protocol 08/29/20: Nausea management Monitor sugar Monitor BP Doing well Chronically ill and debilitated 08/30/20: Continue abx IRF protocol Nausea treatment 08/31/20: Compazine Monitor closely DC 09/03 (1) Myopathy (2) Diabetic foot ulcer (3) Diabetes (4) Chronic pain (5) Nausea (6) MARY ANN (obstructive sleep apnea) (7) Oxygen dependent (8) Discitis ЕЛЕНА CRUZ DO Aug 31, 2020 06:59
[2020-08-31] MEDS: QUEtiapine 25 MG (SEROquel) TAB IMMEDIATE RELEASE PO SCH ×2 (08:23→21:16)
[2020-08-31] MEDS: lisINopril 5 MG (PRINIVIL) TABLET PO SCH (08:23)
[2020-08-31] MEDS: PENTOXIFYLLINE ER 400 MG (TRENtal) TAB PO SCH ×3 (08:23→21:17)
[2020-08-31] MEDS: PANTOPRAZOLE 40 MG (PROTONIX) TAB PO SCH (08:23)
[2020-08-31] MEDS: PREGABALIN 100 MG (LYRICA) CAPSULE PO SCH ×2 (08:23→21:16)
[2020-08-31] MEDS: MELOXICAM 7.5 MG (MOBIC) TABLET PO SCH (08:23)
[2020-08-31] MEDS: LORATADINE (CLARITIN) 10 MG TAB PO SCH (08:23)
[2020-08-31] MEDS: SPIRONOLACTONE 25 MG (ALDACTONE) TAB PO SCH ×2 (08:23→21:16)
[2020-08-31] MEDS: BRIMONIDINE 0.2% (ALPHAGAN) OPHTH SOLN 5 ML BTL OU SCH (08:24)
[2020-08-31] MEDS: FLUTICASONE NASAL SPRAY (FLONASE) 16 GM BTL NS SCH ×2 (08:24→21:15)
[2020-08-31] MEDS: DICLOFENAC 1% GEL 100 GM (VOLTAREN) TUBE TP SCH ×2 (08:25→19:26)
[2020-08-31] MEDS: polyethylene glycoL POWDER 17 GM (MIRALAX) PACK PO SCH ×2 (08:25→19:24)
[2020-08-31] MEDS: COLLAGENASE 30 GM (SANTYL) TUBE TP SCH (08:25)
[2020-08-31] MEDS: SENNA W/DOCUSATE (SENOKOT S) TABLET PO SCH ×2 (08:25→19:24)
[2020-08-31] MEDS: SALINE NASAL SPRAY (OCEAN) 45 ML BTL SCH ×2 (08:26→20:25)
[2020-08-31] MEDS: DOCUSATE SODIUM 100 MG (COLACE) CAP PO SCH ×2 (08:26→19:22)
[2020-08-31] MEDS: LACTOBACILLUS ACIDOPHILUS (PROBIOTIC) CAPSULE PO SCH ×3 (08:27→21:16)
[2020-08-31] MEDS: UMECLIDINIUM BROMIDE (INCRUSE ELLIPTA) 7'S IH SCH (08:59)
[2020-08-31] MEDS: RT-ALBUTEROL SULF 2.5 MG/3 ML PRE-MIX VIAL INH SCH (08:59)
--- NOTE | 2020-08-31 10:25 | NUR ---
Nika is a 55 yo female who is currently present on ARU post lengthy hospital course ([facility]) due to disuse myopathy and sepsis. Patient is doing very well and continue on IV and oral antibiotics at this time. Midline noted to RUE and no issues noted with line. Patient is A&O X4 and denies pain but does report intermittent nausea which is controlled with PRN medications. Patient does have an ulcer noted to her right foot which Dr. Snyder is following, daily dressing changes with Santyl completed. Patient last bowel movement was noted to be 10/9 per patient report but no nursing staff noted. Nika is able to transfer SBA/Supervision. No further issues noted. This nurse will continue to monitor patient throughout shift.
[2020-08-31] MEDS: PARoxetine 20 MG (PAXIL) TAB PO SCH (11:01)
[2020-08-31] MEDS ORDERED: RT-ALBUTEROL/IPRATROPIUM 3 ML (DUONEB) VIAL ONE (13:34)
[2020-08-31] MEDS: PROCHLORPERAZINE 10 MG TAB (COMPAZINE) PO PRN (14:04)
[2020-08-31] MEDS: ENOXAPARIN 40 MG/0.4 ML (LOVENOX) SYR SC SCH (16:58)
[2020-08-31 17:18] VITALS: BP 109/55
[2020-08-31] MEDS: BETAMETHASONE DIPRO (AUGMENTED) 0.05% CREAM 15 GM TOP SCH (19:26)
[2020-08-31] MEDS: LATANOPROST 0.005% (XALATAN) OPHTH SOLN 2.5 ML OU SCH (21:15)
[2020-08-31] MEDS: MIRTAZAPINE 15 MG (REMERON) TAB PO SCH (21:16)
[2020-08-31] MEDS: MONTELUKAST 10 MG (SINGULAIR) TAB PO SCH (21:16)
[2020-08-31] MEDS: FENOFIBRATE, MICRO 67 MG (LOFIBRA) CAPSULE PO SCH (21:16)
[2020-09-01] VITALS (7 sets, daily range): BP systolic 96–116; BP diastolic 54–71
[2020-09-01] MEDS: RT-ALBUTEROL/IPRATROPIUM 3 ML (DUONEB) VIAL INH SCH ×3 (00:49→19:30)
[2020-09-01] MEDS: ceFAZolin 2 GM/50 ML (PRE-MIXED) IV SCH ×3 (01:41→17:48)
[2020-09-01] MEDS: PROCHLORPERAZINE 10 MG TAB (COMPAZINE) PO PRN (02:13)
[2020-09-01 06:33] LABS: BASOPHILS # (AUTO) 0.1 10^3/uL (0.0-0.1); BASOPHILS % (AUTO) 1 % (0-10); EOSINOPHILS # (AUTO) 0.4 10^3/uL (0.0-0.3); EOSINOPHILS % (AUTO) 5 % (0-10); HEMATOCRIT 29 % (35-52); HEMOGLOBIN 9.1 g/dL (11.5-16.0); LYMPHOCYTES # (AUTO) 1.9 10^3/uL (1.0-4.0); LYMPHOCYTES % (AUTO) 23 % (12-44); MEAN CORPUSCULAR HEMOGLOBIN 28 pg (25-34); MEAN CORPUSCULAR HGB CONC 32 g/dL (32-36); MEAN CORPUSCULAR VOLUME 87 fL (80-99); MEAN PLATELET VOLUME 10.4 fL (9.0-12.2); MONOCYTES # (AUTO) 0.8 10^3/uL (0.0-1.0); MONOCYTES % (AUTO) 10 % (0-12); NEUTROPHILS # (AUTO) 4.9 10^3/uL (1.8-7.8); NEUTROPHILS % (AUTO) 59 % (42-75); PLATELET COUNT 271 10^3/uL (130-400); WHITE BLOOD COUNT 8.3 10^3/uL (4.3-11.0)
[2020-09-01] MEDS: UMECLIDINIUM BROMIDE (INCRUSE ELLIPTA) 7'S IH SCH (06:33)
[2020-09-01] MEDS: predniSONE 10 MG TAB PO SCH (06:41)
[2020-09-01] MEDS: FUROSEMIDE 40 MG (LASIX) TAB PO SCH (06:41)
[2020-09-01] MEDS: MULTIVIT W/MINERALS TAB (THERAGRAN M) PO SCH (06:41)
[2020-09-01] MEDS: RIFAMPIN 150 MG (RIFADIN) CAP PO SCH ×3 (06:41→22:10)
[2020-09-01] MEDS: CALCIUM CARBONATE 600 MG (CALCARB) TAB PO SCH (06:41)
[2020-09-01] MEDS: inSUlin ASPART (NovoLOG) 1 UNIT/0.01 ML (CHARGE PER UNIT) SC SCH ×4 (06:42→21:04)
[2020-09-01] MEDS: VITAMIN D3 25 MCG (1,000 UNITS) TABLET PO SCH (06:42)
[2020-09-01 06:43] LABS: CHLORIDE 98 MMOL/L (98-107); POTASSIUM 3.5 MMOL/L (3.6-5.0); SODIUM 140 MMOL/L (135-145)
[2020-09-01 06:45] LABS: GLUCOSE 125 MG/DL (70-105)
[2020-09-01 06:46] LABS: TOTAL PROTEIN 6.3 GM/DL (6.4-8.2)
[2020-09-01 06:47] LABS: BILIRUBIN,TOTAL 0.2 MG/DL (0.1-1.0); CARBON DIOXIDE 31 MMOL/L (21-32)
[2020-09-01 06:49] LABS: ALKALINE PHOSPHATASE 70 U/L (40-136); CREATININE SERUM 0.66 MG/DL (0.60-1.30); GFR ESTIMATED > 60
[2020-09-01 06:50] LABS: BUN/CREATININE RATIO 11
[2020-09-01 06:52] LABS: ALANINE AMINOTRANSFERASE < 6 U/L (0-55)
[2020-09-01] MEDS: HYDROcodone/APAP 10 MG/325 MG (LORTAB) TAB PO PRN (07:51)
--- NOTE | 2020-09-01 08:32 | PM&R Progress Note ---
Subjective HPI/CC On Admission Date Seen by Provider: Sep 01, 2020 Time Seen by Provider: 10:00 Subjective/Events-last exam 09/01/20: Last day of antibiotic is Tuesday Will likely discharge on Tuesday also Calcium 13, will discontinue the Caltrate of 1200 Mg daily, will remain on Vitamin D Prednisone is chronic for COPD and other medical problems but she had been on 30 Mg for a long time so she has been doing well at 20 Mg so will maintain that for now. I did update Berry at the pharmacy with that information Hgb 9.1 08/31/20: Having a good day No issues Increasing fluids due to concentrated urine Sugar 254 08/30/20: Good day today Nausea is improved Sugar 262 before lunch Fentanyl patch good for pain Foot wound is good 08/29/20: Nausea persists Patient has a very flat affect but appears chronic Anxiety is a large component in her disability 08/28/20: Nausea continued and chose not to take Compazine and after I spoke to her about being proactive and take the Compazine she agreed to take it BP low at SBP 84 so holding those meds Loose stools Potassium 5.5 stopping potassium supplement, continuing Spironolactone Zofran and Compazine helping with nausea Appreciate Dr. Snyder and Dr. iEd Monitoring diarrhea Checked meds and labs Conferred with RN Reviewed therapy notes Review of Systems General: Fatigue, Malaise Neurological: Weakness Objective Exam Vital Signs Vital Signs Date Time Temp Pulse Resp B/P (MAP) Pulse Ox O2 Delivery O2 Flow Rate FiO2 09/01/20 19:30 94 Nasal Cannula 1.50 09/01/20 15:15 36.6 79 17 106/59 (75) Capillary Refill : Less Than 3 Seconds General Appearance: No Apparent Distress, WD/WN, Chronically ill HEENT: PERRL/EOMI, Normal ENT Inspection, Pharynx Normal Neck: Full Range of Motion, Normal Inspection, Non Tender, Supple Respiratory: Chest Non Tender, Lungs Clear, Normal Breath Sounds, No Accessory Muscle Use, No Respiratory Distress Cardiovascular: Regular Rate, Rhythm, No Edema, No Gallop, No Murmur, Normal Peripheral Pulses Gastrointestinal: Normal Bowel Sounds, No Organomegaly, No Pulsatile Mass, Non Tender, Soft Back: Normal Inspection, No CVA Tenderness, Decreased Range of Motion Extremity: Normal Inspection Neurologic/Psychiatric: Alert, Oriented x3, Normal Mood/Affect Skin: Normal Color, Warm/Dry Results/Procedures Lab Laboratory Tests 09/01/20 06:05 Patient resulted labs reviewed. FIM Transfers Therapy Code Descriptions/Definitions Functional Cassia Measure: 0=Not Assessed/NA 4=Minimal Assistance 1=Total Assistance 5=Supervision or Setup 2=Maximal Assistance 6=Modified Cassia 3=Moderate Assistance 7=Complete IndependenceSCALE: Activities may be completed with or without assistive devices. 1-Oxnzhvqsxx-axsdjfb completes the activity by him/herself with no assistance from a helper. 5-Set-up or Clean-up Assistance-helper sets up or cleans up; patient completes activity. Edgard assists only prior to or following the activity. 4-Supervision or Touching Assistance-helper provides verbal cues and/or touching/steadying and/or contact guard assistance as patient completes activity. Assistance may be provided throughout the activity or intermittently. 3-Partial/Moderate Assistance-helper does LESS THAN HALF the effort. Edgard lifts, holds or supports trunk or limbs, but provides less than half the effort. 2-Substantial/Maximal Assistance-helper does MORE THAN HALF the effort. Edgard lifts or holds trunk or limbs and provides more than half the effort. 2-Qaisqabhq-ifjvah does ALL the effort. Patient does none of the effort to complete the activity. Or, the assistance of 2 or more helpers is required for the patient to complete the activity. If activity was not attempted, code reason: 7-Patient Refused. 9-Not Applicable-not attempted and the patient did not perform the activity before the current illness, exacerbation or injury. 10-Not Attempted due to Environmental Limitations-(lack of equipment, weather restraints, etc.). 88-Not Attempted due to Medical Conditions or Safety Concerns. Roll Left to Right (QC): 6 Sit to Lying (QC): 5 Sit to Stand (QC): 4 Chair/Tyb-lb-Lpjcg Xfer(QC): 4 Car Transfer (QC): 4 Gait Training Does the Patient Walk?: Yes Distance: 50'x2 Walk 10 feet (QC): 4 Walk 50 ft with 2 Turns(QC): 4 Walk 150 ft (QC): 4 Walking 10ft/uneven surface-QC: 4 Gait Persons Needed: 1 Gait Assistive Device: FWW Wheelchair Training Does the Pt Use a Wheelchair?: Yes Distance: 75' Wheel 50 ft with 2 turns (QC): 4 Wheel 150 ft (QC): 88 Type of Wheelchair: Manual Stair Training Stair Training: Handrails/: uses walker #of Steps: 1 1 Step (curb) (QC): 4 4 Steps (QC): 88 12 Steps (QC): 88 Stairs: Pattern: Step to Balance Picking up an Object (QC): 3 ADL-Treatment Eating (QC): 6 Oral Hygiene (QC): 6 Bathing Location: L Arm, R Arm, L Upper Leg, R Upper Leg, L Lower Leg (in cluding foot), R Lower Leg (including foot), Chest, Abdomen, Buttocks, Perineal Area Shower/Bathe Self (QC): 7 Upper Body Dressing (QC): 6 Lower Body Dressing (QC): 4 On/Off Footwear (QC): 6 Toileting Hygiene (QC): 7 Toilet Transfer (QC): 7 Assessment/Plan Assessment and Plan Assess & Plan/Chief Complaint Assessment: Myopathy Discitis on Ancef until 09/03/20 DM Right DM foot ulcer HTN HLP O2 dependent MARY ANN PLan: DM management IRF protocol Pain management 08/27/20: Stop Potassium due to level of 5.5 Use zofran and Compazine Appreciate Dr. Snyder consultation Appreciated Dr. Eid consultation Monitor diarrhea 08/28/20: Monitor nausea Compazine IRF protocol 08/29/20: Nausea management Monitor sugar Monitor BP Doing well Chronically ill and debilitated 08/30/20: Continue abx IRF protocol Nausea treatment 08/31/20: Compazine Monitor closely DC 09/0309/01/20: Stop calcium due to hypercalcemia Complete antibiotics on Tuesday Discharge on Tuesday (1) Myopathy (2) Diabetic foot ulcer (3) Diabetes (4) Chronic pain (5) Nausea (6) MARY ANN (obstructive sleep apnea) (7) Oxygen dependent (8) Discitis ЕЛЕНА CRUZ DO Sep 01, 2020 08:32
[2020-09-01] MEDS: PREGABALIN 100 MG (LYRICA) CAPSULE PO SCH ×2 (09:10→20:54)
[2020-09-01] MEDS: QUEtiapine 25 MG (SEROquel) TAB IMMEDIATE RELEASE PO SCH ×2 (09:10→20:54)
[2020-09-01] MEDS: LORATADINE (CLARITIN) 10 MG TAB PO SCH (09:11)
[2020-09-01] MEDS: PANTOPRAZOLE 40 MG (PROTONIX) TAB PO SCH (09:11)
[2020-09-01] MEDS: MELOXICAM 7.5 MG (MOBIC) TABLET PO SCH (09:14)
[2020-09-01] MEDS: PARoxetine 20 MG (PAXIL) TAB PO SCH (09:15)
[2020-09-01] MEDS: PENTOXIFYLLINE ER 400 MG (TRENtal) TAB PO SCH ×3 (09:18→20:53)
[2020-09-01] MEDS: SPIRONOLACTONE 25 MG (ALDACTONE) TAB PO SCH ×2 (09:19→21:05)
[2020-09-01] MEDS: lisINopril 5 MG (PRINIVIL) TABLET PO SCH (09:20)
--- NOTE | 2020-09-01 09:54 | Physical Therapy Daily Note ---
PT Daily Note-Current Subjective Pt. agrees to Rx but c/o about getting up at 6am for breakfast and "in general just ready to get out of here" Pt. shares that she is essentially very inactive at home and will have a lot of help when she gets there. Also states her home has been remodeled for her safety and convenience upon her return. Pt. c/o some dizziness upon sitting and standing. see BPs below. Pt. states she does not use steps , has ramp at home Pain Location: No Pain Reported Mental Status Patient Orientation: Normal For Age Attachments: Oxygen (2L) Transfers SCALE: Activities may be completed with or without assistive devices. 3-Cbtotxjbyj-qekodhm completes the activity by him/herself with no assistance fr om a helper. 5-Set-up or Clean-up Assistance-helper sets up or cleans up; patient completes activity. Colony assists only prior to or following the activity. 4-Supervision or Touching Assistance-helper provides verbal cues and/or touching/steadying and/or contact guard assistance as patient completes activity. Assistance may be provided throughout the activity or intermittently. 3-Partial/Moderate Assistance-helper does LESS THAN HALF the effort. Colony lifts, holds or supports trunk or limbs, but provides less than half the effort. 2-Substantial/Maximal Assistance-helper does MORE THAN HALF the effort. Colony lifts or holds trunk or limbs and provides more than half the effort. 7-Cegggvvxn-swnvby does ALL the effort. Patient does none of the effort to complete the activity. Or, the assistance of 2 or more helpers is required for the patient to complete the activity. If activity was not attempted, code reason: 7-Patient Refused. 9-Not Applicable-not attempted and the patient did not perform the activity before the current illness, exacerbation or injury. 10-Not Attempted due to Environmental Limitations-(lack of equipment, weather restraints, etc.). 88-Not Attempted due to Medical Conditions or Safety Concerns. Roll Left & Right (QC): 6 Sit to Lying (QC): 6 Lying to Sitting/Side of Bed(Q: 6 Sit to Stand (QC): 6 Chair/Mlb-vh-Byvwp Xfer(QC): 6 Car Transfer (QC): 6 Weight Bearing Right Lower Extremity: Right Full Weight Bearing Left Lower Extremity: Left Full Weight Bearing Gait Training Does the Patient Walk?: Yes Walk 10 feet (QC): 6 Walk 50 ft with 2 Turns(QC): 6 Walk 150 ft (QC): 6 Walking 10ft/uneven surface-QC: 6 Gait Persons Needed: 1 Gait Assistive Device: FWW needs assist for portable O2 only Stair Training Stair Training: Handrails/: uses walker #of Steps: 4 1 Step (curb) (QC): 5 4 Steps (QC): 4 12 Steps (QC): 7 Stairs: Pattern: Step to pink step and FWW Exercises Supine Ex: Bridging, Ankle pumps, Quad Set, Rolling, Glut sets, Heel Slides, Short Arc Quads, Scooting, Straight leg raise, Hip abd/add Supine Reps: 15 Seated Therapy Exercises: Ankle pumps, Sit to stand, Long arc quads, Hip flexion, Hip abd/add Seated Reps: 15 Assessment Current Status: Good Progress supine BP 111/59, sitting 105/65, standing 106/68 PT Short Term Goals Short Term Goals Time Frame: Sep 02, 2020 Sit to lyin Lying to sitting on side of be: 6 Sit to stand: 5 Walk 50 feet with two turns: 4 Walk 150 feet: 4 PT Mcfp Goals Continuous Improvement Analyst Goals PT Continuous Improvement Analyst Goals Time Frame: Sep 16, 2020 Roll Left & Right (QC): 6 Sit to Lying (QC): 6 Lying-Sitting on Side/Bed(QC): 6 Sit to Stand (QC): 6 Chair/Tor-qh-Kwruq Xfer(QC): 6 Toilet Transfer (QC): 6 Car Transfer (QC): 6 Does the Patient Walk: Yes Walk 10 feet (QC): 6 Walk 50ft with 2 Turns (QC): 6 Walk 150 ft (QC): 5 Walking 10ft on Uneven Surface: 5 1 Step (curb) (QC): 6 4 Steps (QC): 4 12 Steps (QC): 4 Picking up an Object (QC): 4 Does the Pt use WC or Scooter?: Yes Wheel 50 feet with 2 turns (QC: 6 Type: Manual Wheel 150 feet: 6 Type: Manual PT Plan Treatment/Plan Treatment Plan: Continue Plan of Care Treatment Plan: Bed Mobility, Education, Functional Activity Chencho, Functional Strength, Group Therapy, Gait, Safety, Therapeutic Exercise, Transfers Treatment Duration: Sep 16, 2020 Frequency: At least 5 of 7 days/Wk (IRF) Estimated Hrs Per Day: 1.5 hours per day Patient and/or Family Agrees t: Yes Safety Risks/Education Patient Education: Gait Training, Transfer Techniques, Steps, Correct Positioning, Disease Process, Safety Issues Teaching Recipient: Patient Teaching Methods: Demonstration, Discussion Response to Teaching: Verbalize Understanding, Return Demonstration, Reinforcement Needed Time/GCodes Time In: 900 Time Out: 945 Total Billed Treatment Time: 45 Total Billed Treatment 1,GT15,FA15,EX15 SOFIA MEEK PTA Sep 01, 2020 09:54
[2020-09-01] MEDS: polyethylene glycoL POWDER 17 GM (MIRALAX) PACK PO SCH ×2 (11:03→21:04)
[2020-09-01] MEDS: SENNA W/DOCUSATE (SENOKOT S) TABLET PO SCH ×2 (11:03→21:05)
[2020-09-01] MEDS: DOCUSATE SODIUM 100 MG (COLACE) CAP PO SCH ×2 (11:04→21:04)
[2020-09-01] MEDS: BRIMONIDINE 0.2% (ALPHAGAN) OPHTH SOLN 5 ML BTL OU SCH (11:06)
[2020-09-01] MEDS: SALINE NASAL SPRAY (OCEAN) 45 ML BTL SCH ×2 (11:07→20:52)
[2020-09-01] MEDS: FLUTICASONE NASAL SPRAY (FLONASE) 16 GM BTL NS SCH ×2 (11:07→20:52)
[2020-09-01] MEDS: DICLOFENAC 1% GEL 100 GM (VOLTAREN) TUBE TP SCH ×2 (11:07→21:05)
[2020-09-01] MEDS: COLLAGENASE 30 GM (SANTYL) TUBE TP SCH (11:12)
--- NOTE | 2020-09-01 11:21 | Occupational Ther Daily Note ---
OT Current Status-Daily Note Subjective Pt laying in bed, agreeable to OT tx at this time. Pt states she feels like she is at her PLOF and wants to go home soon. Mental Status/Objective Patient Orientation: Person, Place, Time, Situation Attachments: Oxygen (2L) ADL-Treatment Therapy Code Descriptions/Definitions Functional Whipple Measure: 0=Not Assessed/NA 4=Minimal Assistance 1=Total Assistance 5=Supervision or Setup 2=Maximal Assistance 6=Modified Whipple 3=Moderate Assistance 7=Complete IndependenceSCALE: Activities may be completed with or without assistive devices. 8-Lcnqgmoaaf-vsgkzdq completes the activity by him/herself with no assistance from a helper. 5-Set-up or Clean-up Assistance-helper sets up or cleans up; patient completes activity. [place]mann[place] assists only prior to or following the activity. 4-Supervision or Touching Assistance-helper provides verbal cues and/or touching/steadying and/or contact guard assistance as patient completes activity. Assistance may be provided throughout the activity or intermittently. 3-Partial/Moderate Assistance-helper does LESS THAN HALF the effort. Fle[place]mann[place] lifts, holds or supports trunk or limbs, but provides less than half the effort. 2-Substantial/Maximal Assistance-helper does MORE THAN HALF the effort. [place] lifts or holds trunk or limbs and provides more than half the effort. 6-Boxsosxho-inhlwi does ALL the effort. Patient does none of the effort to complete the activity. Or, the assistance of 2 or more helpers is required for the patient to complete the activity. If activity was not attempted, code reason: 7-Patient Refused. 9-Not Applicable-not attempted and the patient did not perform the activity before the current illness, exacerbation or injury. 10-Not Attempted due to Environmental Limitations-(lack of equipment, weather restraints, etc.). 88-Not Attempted due to Medical Conditions or Safety Concerns. Eating (QC): 6 (Pt indicates no difficulties eating) Oral Hygiene (QC): 6 (IND seated at sink) Shower/Bathe Self (QC): 5 (Pt able to wash/dry all parts. Set up to cover dressing/IV prior to shower.) Upper Body Dressing (QC): 6 (pt able to don/doff ladle puller shirt) Lower Body Dressing (QC): 6 (IND, Pt gathered clothing from closet, pt able to doff underwear and don pants/underwear) On/Off Footwear: 6 (Pt able to doff gripper socks, and don gripper socks/surgical shoes) Toileting Hygiene (QC): 6 (Pt able to complete clothing management and pericare/wash buttocks.) Other Treatment Pt laying in bed, agreeable to OT tx, pt requests shower at this time. Pt transferred supine to sit, then used FWW to gather clothes and ambulate into restroom and onto shower chair. Pt washed/dried all parts, then donned surgical shoes to transfer to w/c. Pt completed dressing at w/c level with rest breaks as needed. Pt indicated fatigue after shower. Pt then sat at sink to complete oral care and brush her hair. Pt used FWW to return to sit EOB, then transferred supine independently. Pt states she feels like she is ready to go home and has no concerns about completing ADLS when returning home. Post OT Tx, pt laying in bed, call light in reach and nurse present. Education OT Patient Education: Correct positioning, Energy conservation, Modified ADL techniques, Progress toward Goal/Update tx plan, Purpose of tx/functional activities, Transfer techniques Teaching Recipient: Patient Teaching Methods: Discussion Response to Teaching: Verbalize Understanding OT Usp Goals Neonatal Nurse Goals Time Frame: Sep 19, 2020 Eating (QC): 6 Oral Hygiene (QC): 6 Toileting Hygiene (QC): 6 Shower/Bathe Self (QC): 6 Upper Body Dressing (QC): 6 Lower Body Dressing (QC): 6 On/Off Footwear (QC): 6 Additional Goals: 1-Demonstrate ADL Tasks, 2-Verbalize Understanding, 3-ImproveStrength/Chencho 1=Demonstrate adherence to instructed precautions during ADL tasks. 2=Patient will verbalize/demonstrate understanding of assistive devices/modifications for ADL. 3=Patient will improve strength/tolerance for activity to enable patient to perform ADL's. OT Education/Plan Problem List/Assessment Assessment: Decreased Activ Tolerance, Decreased UE Strength, Impaired I ADL's Discharge Recommendations Plan/Recommendations: Continue POC Treatment Plan/Plan of Care Patient would benefit from OT for education, treatment and training to promote independence in ADL's, mobility, safety and/or upper extremity function for ADL's. Plan of Care: ADL Retraining, Functional Mobility, Group Exercise/Act as Ind, UE Funct Exercise/Act Treatment Duration: Sep 19, 2020 Frequency: At least 5 of 7 days/Wk (IRF) Estimated Hrs Per Day: 1.5 hours per day Agreement: Yes Rehab Potential: Fair Time/GCodes Start Time: 11:00 Stop Time: 12:00 Total Time Billed (hr/min): 60 Billed Treatment Time 1, ADL 4 KATIE ROBLERO OT Sep 01, 2020 11:21
[2020-09-01] MEDS: LACTOBACILLUS ACIDOPHILUS (PROBIOTIC) CAPSULE PO SCH ×3 (11:43→20:54)
--- NOTE | 2020-09-01 11:45 | Progress Note ---
YURI LANGE MED STUDENT 09/01/20 1145: Progress Note 55 y/o female presenting to [facility] due to requiring IV antibiotics secondary to osteomyelitis and possible infective endocarditis. Patient was transferred to [facility] from [facility] on 07/18 for sepsis with MSSA. MEGAN was performed, inconclusive but possible infective endocarditis. She c/o acute on chronic back pain and was eventually found to have osteomyelitis of L2-L3 with discitis on MRI. She was then transferred to [facility] to continue receiving IV antibiotics and for rehabilitation. Currently patient reports no complaints and that her nausea and diarrhea have improved greatly. Foot wound is healing well, no indications of infection, will monitor for changes. Patient reports to OT that she feels she is essentially at her PLOF and she is feeling good, ready to go home when able. Plan: Continue PT and OT Discontinue Calcium supplementation Maintain Vitamin D Decrease Prednisone to 20mg Monitor labs: glucose/calcium Monitor foot wound for changes Fall risk precautions MARA CRUZ DO 09/02/20 0520: Supervisory-Addendum Brief Verification & Attestation Participated in pt care: history, MDM, physical Personally performed: exam, history, MDM, supervision of care Care discussed with: Medical Student Procedures: n/a Results interpretation: Verified all documentation Verification and Attestation of Medical Student E/M Service A medical student performed and documented this service in my presence. I reviewed and verified all information documented by the medical student and made modifications to such information, when appropriate. I personally performed the physical exam and medical decision making. Mara Cruz, Sep 02, 2020,05:20 YURI LANGE MED STUDENT Sep 01, 2020 11:45 MARA CRUZ DO Sep 02, 2020 05:20
[2020-09-01] MEDS: fentaNYL PATCH 50 MCG (DURAGESIC) TD SCH (11:59)
[2020-09-01] MEDS: FENTANYL PATCH REMOVAL TP SCH (12:03)
--- NOTE | 2020-09-01 14:47 | Therapy Group Daily Note ---
Therapy Daily Group Note Patient Education Topic Other List Below (memory and strategies) Exercises UE Exercise (neck and breathing ) Session Ratio (pt:therapist): 4:1 Goal of Session: Home Safety Strategies, Memory Strategies Goal Met for this Session: Yes Pt Benefit of Group: F/U Use of Strategies @Home, Improved Cognition, Socialization Other/Notes Pt. participated in group PT OT session this date. Pt. ambulated to and from group using FWW and assist for O2 portable. Pt. was social, introduced herself and shared her favorite childhood [place] memory. snf and short term m priscila was discussed as well as memory association etc. Pts shared their own experiences with ways to remember important things as well as some important things they have forgotten and the consequences. Pts all participated in memory activity using matching images first shown then hidden challenging pts to recall their location . 5 words were established for recall at later group session. Pts participated in neck exercises as well as breathing exercises. Pt. to room after group with valle at hand and needs met Start Time: 13:00 Stop Time: 14:25 Total Billed Treatment Time: 85 Total Billed Treatment 1,GRP 85m SOFIA MEEK PHYSICAL THERAPY AIDES TEACHER Sep 01, 2020 14:47
[2020-09-01] MEDS: ENOXAPARIN 40 MG/0.4 ML (LOVENOX) SYR SC SCH (15:05)
--- NOTE | 2020-09-01 15:54 | NUR ---
Notified Dr. Black's office of podiatry consult.
--- NOTE | 2020-09-01 15:57 | NUR ---
CM/SS CONCURRENT DOCUMENTATION Patient's last day of IV Rx Q8H is TuesdaySeptember 03. She has requested to be released to her home once that is completed. It appears the last dose would be near midnight, jingle writer proposes discharge. HHC: Recommended for RN PT OT, patient has requested [facility]HC. DME: It appears there are no additional benefit covered devices needed. Patient shared today she has an electric skooter and BSC in additional to the previously DME inventoried. Patient's family has reportedly put up a new ramp and completed a bathroom remodel during her absence. She has been hospitalized since July 18. Confer with team regarding discharge this week.
--- NOTE | 2020-09-01 17:46 | NUR ---
Pt states that she sees her business planning analyst, Dr. Mcclure, in [place] every 3 months, & has a Sher machine at home that she uses to check her B/S's.
[2020-09-01] MEDS: fluCOnazole (DIFLUCAN) 100 MG TAB PO SCH (17:52)
--- NOTE | 2020-09-01 19:06 | NUR ---
bedside report received from SARAY LIRIANO, assume care of pt
[2020-09-01] MEDS: FENOFIBRATE, MICRO 67 MG (LOFIBRA) CAPSULE PO SCH (20:53)
[2020-09-01] MEDS: LATANOPROST 0.005% (XALATAN) OPHTH SOLN 2.5 ML OU SCH (20:53)
[2020-09-01] MEDS: MIRTAZAPINE 15 MG (REMERON) TAB PO SCH (20:53)
[2020-09-01] MEDS: MONTELUKAST 10 MG (SINGULAIR) TAB PO SCH (20:55)
[2020-09-01] MEDS: BETAMETHASONE DIPRO (AUGMENTED) 0.05% CREAM 15 GM TOP SCH (21:05)
--- NOTE | 2020-09-01 21:05 | NUR ---
pt refused ocean spray, Colace, miralax, Senokot, Diprolene & Voltaren gel b/p 116/55 Aldactone held per physician order, fsbs 288 NovoLog 5 units & scheduled Levemir 5 units given
[2020-09-02] MEDS: ceFAZolin 2 GM/50 ML (PRE-MIXED) IV SCH ×3 (01:13→16:39)
[2020-09-02 05:36] VITALS: BP 140/70
[2020-09-02] MEDS: inSUlin ASPART (NovoLOG) 1 UNIT/0.01 ML (CHARGE PER UNIT) SC SCH ×4 (06:00→20:39)
[2020-09-02] MEDS: MULTIVIT W/MINERALS TAB (THERAGRAN M) PO SCH (06:38)
[2020-09-02] MEDS: RIFAMPIN 150 MG (RIFADIN) CAP PO SCH ×3 (06:38→22:17)
[2020-09-02] MEDS: predniSONE 10 MG TAB PO SCH (06:39)
[2020-09-02] MEDS: FUROSEMIDE 40 MG (LASIX) TAB PO SCH (06:39)
[2020-09-02] MEDS: VITAMIN D3 25 MCG (1,000 UNITS) TABLET PO SCH (06:39)
--- NOTE | 2020-09-02 07:29 | Occupational Ther Daily Note ---
OT Current Status-Daily Note Subjective Pt alert, sitting in recliner. Pt states she is ready to go home. Last dosage of antibiotics will be on Tuesday night. Pt agrees to therapy. States that she had a FaceTime call from family this weekend and they have her ramp and bathroom complete for her return. Mental Status/Objective Patient Orientation: Person, Place, Time, Situation Attachments: IV, Oxygen (2L) ADL-Treatment Pt states that she had a shower yesterday. Agrees to bathing at sink and donning clothing. Pt retrieved clothing and placed on bed to change after sponge bath. Pt completes sponge bath and oral care at sink, independently sitt ing in chair. Pt then sat in chair and reached for clothing from bed to complete dressing independently. Pt takes increased time to complete tasks due to low activity tolerance and multiple recovery breaks required. Pt transferred to bed with SPT, independently. Physician in room at end of treatment. Call light/phone in reach. All needs met in room. Therapy Code Descriptions/Definitions Functional [place] Measure: 0=Not Assessed/NA 4=Minimal Assistance 1=Total Assistance 5=Supervision or Setup 2=Maximal Assistance 6=Modified [place] 3=Moderate Assistance 7=Complete IndependenceSCALE: Activities may be completed with or without assistive devices. 6-Qmarrknjvwk-jwmlnud completes the activity by him/herself with no assistance from a helper. 5-Set-up or Clean-up Assistance-helper sets up or cleans up; patient completes activity. [place] assists only prior to or following the activity. 4-Supervision or Touching Assistance-helper provides verbal cues and/or touching/steadying and/or contact guard assistance as patient completes activity. Assistance may be provided throughout the activity or intermittently. 3-Partial/Moderate Assistance-helper does LESS THAN HALF the effort. [place] lifts, holds or supports trunk or limbs, but provides less than half the effort. 2-Substantial/Maximal Assistance-helper does MORE THAN HALF the effort. [place] lifts or holds trunk or limbs and provides more than half the effort. 1-Jpilmjmbe-qicavg does ALL the effort. Patient does none of the effort to complete the activity. Or, the assistance of 2 or more helpers is required for the patient to complete the activity. If activity was not attempted, code reason: 7-Patient Refused. 9-Not Applicable-not attempted and the patient did not perform the activity before the current illness, exacerbation or injury. 10-Not Attempted due to Environmental Limitations-(lack of equipment, weather restraints, etc.). 88-Not Attempted due to Medical Conditions or Safety Concerns. Eating (QC): 6 (Per clinicial judgement, pt able to complete own set up and uses regular utensils to eat.) Oral Hygiene (QC): 6 Bathing Location: L Arm, R Arm, L Upper Leg, R Upper Leg, L Lower Leg (including foot), R Lower Leg (including foot), Chest, Abdomen, Buttocks, Perineal Area Shower/Bathe Self (QC): 6 Upper Body Dressing (QC): 6 Lower Body Dressing (QC): 6 On/Off Footwear: 6 OT Manufacturing Advisor Goals Manufacturing Advisor Goals Time Frame: Sep 19, 2020 Eating (QC): 6 Oral Hygiene (QC): 6 Toileting Hygiene (QC): 6 Shower/Bathe Self (QC): 6 Upper Body Dressing (QC): 6 Lower Body Dressing (QC): 6 On/Off Footwear (QC): 6 Additional Goals: 1-Demonstrate ADL Tasks, 2-Verbalize Understanding, 3- ImproveStrength/[place] 1=Demonstrate adherence to instructed precautions during ADL tasks. 2=Patient will verbalize/demonstrate understanding of assistive devices/mo difications for ADL. 3=Patient will improve strength/tolerance for activity to enable patient to perform ADL's. OT Education/Plan Problem List/Assessment Assessment: Decreased Activ Tolerance, Decreased UE Strength, Impaired Funct Balance, Impaired Self-Care Skills Discharge Recommendations Plan/Recommendations: Continue POC Therapy Discharge Recommendati: Post Acute OT Treatment Plan/Plan of Care Patient would benefit from OT for education, treatment and training to promote independence in ADL's, mobility, safety and/or upper extremity function for ADL's. Plan of Care: ADL Retraining, Functional Mobility, Group Exercise/Act as Ind, UE Funct Exercise/Act Treatment Duration: Sep 19, 2020 Frequency: At least 5 of 7 days/Wk (IRF) Estimated Hrs Per Day: 1.5 hours per day Agreement: Yes Rehab Potential: Fair Time/GCodes Start Time: 07:00 Stop Time: 08:00 Total Time Billed (hr/min): 60 Billed Treatment Time 1 visit-ADL 4 (60 min) MIKA SUE Sep 02, 2020 07:29
[2020-09-02 08:00] VITALS: BP_SYST 121; BP_SYST 99; BP_DIAS 58; BP_DIAS 64
--- NOTE | 2020-09-02 08:00 | NUR ---
STATES NO FURTHER DIARRHEA - STATES STOOL IS SOFT. HAS INTERMITTENT NAUSEA AND STATES STILL HAS A POOR APPETITE. LOOKS [facility] COMPARED TO LAST WEEK AND LOOKING FORWARD TO GOING HOME TUESDAY.
--- NOTE | 2020-09-02 08:07 | Wound Care Assessment ---
Wound Care Assessment Date Seen by Provider: Sep 02, 2020 Time Seen by Provider: 07:45 Chief Complaint R plantar ulcer. HPI The patient is a 55 year old female with a [place] 3 R plantar DFU, much improved by enforced bed rest of recent severe illness. Santyl dressings ordered. Will follow. 08/28/20 Interval Note: Patient with little pain in R foot wound. The wound is clean and stable with present regimen. Continue same. 09/02/20 Interval Note: The wound is stable with Santyl/bordered foam dressings. To be discharged soon. Recommend changing to Hydrofera blue dressings at discharge. Will follow-up in Wound Clinic. Smoking Status: Never a Smoker Recreational Drug Use: No Alcohol Use: Denies Use Review of Systems Pulmonary: No Dyspnea Cardiovascular: No: Chest Pain Exam Vital Signs Date Time Temp Pulse Resp B/P (MAP) Pulse Ox O2 Delivery O2 Flow Rate FiO2 09/02/20 05:36 36.8 84 18 140/70 (93) 97 Nasal Cannula 2.00 Capillary Refill : Less Than 3 Seconds General Appearance: no apparent distress HEENT: normal ENT inspection Respiratory: no respiratory distress Extremities: other (R plantar wound -- 0.7 x 0.7 x 0.2 cm, base 100% slough, mod. s.s. drainage.) Results Laboratory Tests 09/01/20 10:48: Glucometer 254H 09/01/20 15:51: Glucometer 217H 09/01/20 17:43: Glucometer 202H 09/01/20 20:23: Glucometer 288H 09/02/20 05:12: Glucometer 180H Assessment/Plan/Dx 1. Diabetic foot ulcer, R plantar, [place] Grade 3, improving. 2. Disuse myopathy. 3. History of atopic vasculitis, L calf. Plan: Will follow-up in Wound Clinic. TERRY HEATH MD Sep 02, 2020 08:07
[2020-09-02] MEDS: SPIRONOLACTONE 25 MG (ALDACTONE) TAB PO SCH ×2 (08:41→20:43)
--- NOTE | 2020-09-02 08:54 | PM&R Progress Note ---
Subjective HPI/CC On Admission Date Seen by Provider: Sep 02, 2020 Time Seen by Provider: 09:00 Subjective/Events-last exam 09/02/20: Dr. Snyder approved of the right foot wound Will see her in wound care next week No diarrhea Nausea and vomiting is on and off BP is a little bit low today so will give parameters and adjust if needed 09/01/20: Last day of antibiotic is Tuesday Will likely discharge on Tuesday also Calcium 13, will discontinue the Caltrate of 1200 Mg daily, will remain on Vitamin D Prednisone is chronic for COPD and other medical problems but she had been on 30 Mg for a long time so she has been doing well at 20 Mg so will maintain that for now. I did update Berry at the pharmacy with that information Hgb 9.1 08/31/20: Having a good day No issues Increasing fluids due to concentrated urine Sugar 254 08/30/20: Good day today Nausea is improved Sugar 262 before lunch Fentanyl patch good for pain Foot wound is good 08/29/20: Nausea persists Patient has a very flat affect but appears chronic Anxiety is a large component in her disability 08/28/20: Nausea continued and chose not to take Compazine and after I spoke to her about being proactive and take the Compazine she agreed to take it BP low at SBP 84 so holding those meds Loose stools Potassium 5.5 stopping potassium supplement, continuing Spironolactone Zofran and Compazine helping with nausea Appreciate Dr. Snyder and Dr. Eid Monitoring diarrhea Checked meds and labs Conferred with RN Reviewed therapy notes Review of Systems General: Fatigue, Malaise Neurological: Weakness Objective Exam Vital Signs Vital Signs Date Time Temp Pulse Resp B/P (MAP) Pulse Ox O2 Delivery O2 Flow Rate FiO2 09/02/20 20:40 Nasal Cannula 2.00 09/02/20 19:18 96 09/02/20 16:21 36.2 82 20 114/57 (76) Capillary Refill : Less Than 3 Seconds General Appearance: No Apparent Distress, WD/WN, Chronically ill HEENT: PERRL/EOMI, Normal ENT Inspection, Pharynx Normal Neck: Full Range of Motion, Normal Inspection, Non Tender, Supple Respiratory: Chest Non Tender, Lungs Clear, Normal Breath Sounds, No Accessory Muscle Use, No Respiratory Distress Cardiovascular: Regular Rate, Rhythm, No Edema, No Gallop, No Murmur, Normal Peripheral Pulses Gastrointestinal: Normal Bowel Sounds, No Organomegaly, No Pulsatile Mass, Non Tender, Soft Back: Normal Inspection, No CVA Tenderness, Decreased Range of Motion Extremity: Normal Inspection Neurologic/Psychiatric: Alert, Oriented x3, Normal Mood/Affect Skin: Normal Color, Warm/Dry Results/Procedures Lab Patient resulted labs reviewed. FIM Transfers Therapy Code Descriptions/Definitions Functional [place] Measure: 0=Not Assessed/NA 4=Minimal Assistance 1=Total Assistance 5=Supervision or Setup 2=Maximal Assistance 6=Modified [place] 3=Moderate Assistance 7=Complete IndependenceSCALE: Activities may be completed with or without assistive devices. 1-Mpecmswrde-mukqxbh completes the activity by him/herself with no assistance from a helper. 5-Set-up or Clean-up Assistance-helper sets up or cleans up; patient completes activity. [place] assists only prior to or following the activity. 4-Supervision or Touching Assistance-helper provides verbal cues and/or touching/steadying and/or contact guard assistance as patient completes activity. Assistance may be provided throughout the activity or intermittently. 3-Partial/Moderate Assistance-helper does LESS THAN HALF the effort. [place] lifts, holds or supports trunk or limbs, but provides less than half the effort. 2-Substantial/Maximal Assistance-helper does MORE THAN HALF the effort. [place] lifts or holds trunk or limbs and provides more than half the effort. 7-Vzveviufc-uheidd does ALL the effort. Patient does none of the effort to complete the activity. Or, the assistance of 2 or more helpers is required for the patient to complete the activity. If activity was not attempted, code reason: 7-Patient Refused. 9-Not Applicable-not attempted and the patient did not perform the activity before the current illness, exacerbation or injury. 10-Not Attempted due to Environmental Limitations-(lack of equipment, weather restraints, etc.). 88-Not Attempted due to Medical Conditions or Safety Concerns. Roll Left to Right (QC): 6 Sit to Lying (QC): 6 Sit to Stand (QC): 6 Chair/Gst-ob-Vxmls Xfer(QC): 6 Car Transfer (QC): 6 Gait Training Does the Patient Walk?: Yes Distance: 50'x2 Walk 10 feet (QC): 6 Walk 50 ft with 2 Turns(QC): 6 Walk 150 ft (QC): 6 Walking 10ft/uneven surface-QC: 6 Gait Persons Needed: 1 Gait Assistive Device: FWW Wheelchair Training Does the Pt Use a Wheelchair?: Yes Distance: 75' Wheel 50 ft with 2 turns (QC): 4 Wheel 150 ft (QC): 88 Type of Wheelchair: Manual Stair Training Stair Training: Handrails/: uses walker #of Steps: 4 1 Step (curb) (QC): 5 4 Steps (QC): 4 12 Steps (QC): 7 Stairs: Pattern: Step to Balance Picking up an Object (QC): 3 ADL-Treatment Eating (QC): 6 (Per clinicial judgement, pt able to complete own set up and uses regular utensils to eat.) Oral Hygiene (QC): 6 Bathing Location: L Arm, R Arm, L Upper Leg, R Upper Leg, L Lower Leg (inclu ding foot), R Lower Leg (including foot), Chest, Abdomen, Buttocks, Perineal Area Shower/Bathe Self (QC): 6 Upper Body Dressing (QC): 6 Lower Body Dressing (QC): 6 On/Off Footwear (QC): 6 Toileting Hygiene (QC): 6 (Pt able to complete clothing management and pericare/wash buttocks.) Toilet Transfer (QC): 7 Assessment/Plan Assessment and Plan Assess & Plan/Chief Complaint Assessment: Myopathy Discitis on Ancef until 09/03/20 DM Right DM foot ulcer HTN HLP O2 dependent MARY ANN Plan: DM management IRF protocol Pain management 08/27/20: Stop Potassium due to level of 5.5 Use zofran and Compazine Appreciate Dr. Snyder consultation Appreciated Dr. Eid consultation Monitor diarrhea 08/28/20: Monitor nausea Compazine IRF protocol 08/29/20: Nausea management Monitor sugar Monitor BP Doing well Chronically ill and debilitated 08/30/20: Continue abx IRF protocol Nausea treatment 08/31/20: Compazine Monitor closely DC 09/0309/01/20: Stop calcium due to hypercalcemia Complete antibiotics on Tuesday Discharge on Tuesday09/02/20: Discharge tomorrow Tuesday Wound care next week Monitor diarrhea Compazine for nausea (1) Myopathy (2) Diabetic foot ulcer (3) Diabetes (4) Chronic pain (5) Nausea (6) MARY ANN (obstructive sleep apnea) (7) Oxygen dependent (8) Discitis ЕЛЕНА CRUZ DO Sep 02, 2020 08:53
[2020-09-02] MEDS: LACTOBACILLUS ACIDOPHILUS (PROBIOTIC) CAPSULE PO SCH ×3 (09:01→20:40)
[2020-09-02] MEDS: QUEtiapine 25 MG (SEROquel) TAB IMMEDIATE RELEASE PO SCH ×2 (09:01→20:41)
[2020-09-02] MEDS: LORATADINE (CLARITIN) 10 MG TAB PO SCH (09:01)
[2020-09-02] MEDS: PREGABALIN 100 MG (LYRICA) CAPSULE PO SCH ×2 (09:02→20:41)
[2020-09-02] MEDS: PANTOPRAZOLE 40 MG (PROTONIX) TAB PO SCH (09:02)
[2020-09-02] MEDS: PENTOXIFYLLINE ER 400 MG (TRENtal) TAB PO SCH ×3 (09:02→20:41)
[2020-09-02] MEDS: MELOXICAM 7.5 MG (MOBIC) TABLET PO SCH (09:04)
[2020-09-02] MEDS: DOCUSATE SODIUM 100 MG (COLACE) CAP PO SCH ×2 (09:04→19:54)
[2020-09-02] MEDS: polyethylene glycoL POWDER 17 GM (MIRALAX) PACK PO SCH ×2 (09:04→19:54)
[2020-09-02] MEDS: SALINE NASAL SPRAY (OCEAN) 45 ML BTL SCH ×2 (09:05→19:54)
[2020-09-02] MEDS: FLUTICASONE NASAL SPRAY (FLONASE) 16 GM BTL NS SCH ×2 (09:05→20:44)
[2020-09-02] MEDS: BRIMONIDINE 0.2% (ALPHAGAN) OPHTH SOLN 5 ML BTL OU SCH (09:05)
--- NOTE | 2020-09-02 09:07 | Physical Therapy Daily Note ---
PT Daily Note-Current Subjective Pt laying Supine in bed upon arrival. Pt agrees to PT for QC scoring for upcoming DC. Pain Location: No Pain Reported Mental Status Patient Orientation: Person, Place, Time, Situation Attachments: Oxygen (2L) Transfers SCALE: Activities may be completed with or without assistive devices. 6-Wronndjhjo-wvambsl completes the activity by him/herself with no assistance from a helper. 5-Set-up or Clean-up Assistance-helper sets up or cleans up; patient completes activity. [place] assists only prior to or following the activity. 4-Supervision or Touching Assistance-helper provides verbal cues and/or touching/steadying and/or contact guard assistance as patient completes activity. Assistance may be provided throughout the activity or intermittently. 3-Partial/Moderate Assistance-helper does LESS THAN HALF the effort. [place] lifts, holds or supports trunk or limbs, but provides less than half the effort. 2-Substantial/Maximal Assistance-helper does MORE THAN HALF the effort. [place] lifts or holds trunk or limbs and provides more than half the effort. 1-Dsskkllyp-csgiva does ALL the effort. Patient does none of the effort to complete the activity. Or, the assistance of 2 or more helpers is required for the patient to complete the activity. If activity was not attempted, code reason: 7-Patient Refused. 9-Not Applicable-not attempted and the patient did not perform the activity before the current illness, exacerbation or injury. 10-Not Attempted due to Environmental Limitations-(lack of equipment, weather restraints, etc.). 88-Not Attempted due to Medical Conditions or Safety Concerns. Roll Left & Right (QC): 6 Sit to Lying (QC): 6 Lying to Sitting/Side of Bed(Q: 6 Sit to Stand (QC): 6 Chair/Baz-ev-Nkgui Xfer(QC): 6 Toilet Transfer (QC): 6 Car Transfer (QC): 6 Pt uses bed rails but did not regularly. Discussed option of temporary bed rail & where they can be found since not covered item on Insurance. Weight Bearing Right Lower Extremity: Right Full Weight Bearing Left Lower Extremity: Left Full Weight Bearing Gait Training Does the Patient Walk?: Yes Distance: 75', 50', 200' Walk 10 feet (QC): 6 Walk 50 ft with 2 Turns(QC): 6 Walk 150 ft (QC): 6 Walking 10ft/uneven surface-QC: 6 Gait Persons Needed: 1 Gait Assistive Device: FWW Wheelchair Training Does the Pt Use a Wheelchair?: No Stair Training 1 Step (curb) (QC): 7 4 Steps (QC): 7 12 Steps (QC): 7 Pt reports having ramp at home and no need to practice steps. Balance Picking up an Object (QC): 88 Special Test Comments Not attempted due to episodes of dizziness Treatments Completes QC scoring items listed above. Amb in hallway, taking RB as needed due to fatigue. Completes Seated Ex and given written HEP for Seated & Supine Ex. Assessment Current Status: Good Progress Pt fatigues easily and still continuing to work on activity tolerance although self reports "this is similar to home". PT Short Term Goals Short Term Goals Time Frame: Sep 02, 2020 Sit to lyin Lying to sitting on side of be: 6 Sit to stand: 5 Walk 50 feet with two turns: 4 Walk 150 feet: 4 PT Nursery Technician Goals Detention Goals PT Detention Goals Time Frame: Sep 16, 2020 Roll Left & Right (QC): 6 Sit to Lying (QC): 6 Lying-Sitting on Side/Bed(QC): 6 Sit to Stand (QC): 6 Chair/Ezp-cs-Cwgky Xfer(QC): 6 Toilet Transfer (QC): 6 Car Transfer (QC): 6 Does the Patient Walk: Yes Walk 10 feet (QC): 6 Walk 50ft with 2 Turns (QC): 6 Walk 150 ft (QC): 5 Walking 10ft on Uneven Surface: 5 1 Step (curb) (QC): 6 4 Steps (QC): 4 12 Steps (QC): 4 Picking up an Object (QC): 4 Does the Pt use WC or Scooter?: Yes Wheel 50 feet with 2 turns (QC: 6 Type: Manual Wheel 150 feet: 6 Type: Manual PT Plan Problem List Problem List: Activity Tolerance, Functional Strength, Safety Treatment/Plan Treatment Plan: Continue Plan of Care Treatment Plan: Bed Mobility, Education, Functional Activity [place], Functional Strength, Group Therapy, Gait, Safety, Therapeutic Exercise, Transfers Treatment Duration: Sep 16, 2020 Frequency: At least 5 of 7 days/Wk (IRF) Estimated Hrs Per Day: 1.5 hours per day Patient and/or Family Agrees t: Yes Safety Risks/Education Patient Education: Gait Training, Issued Written HEP, Correct Positioning, Safety Issues Teaching Recipient: Patient Teaching Methods: Discussion Response to Teaching: Verbalize Understanding Time/GCodes Time In: 800 Time Out: 900 Total Billed Treatment Time: 60 Total Billed Treatment 1, GT x2 (25m), EX (15m) & FA (20m) ERMIAS BALDERAS [place] COORDINATOR Sep 02, 2020 09:07
[2020-09-02] MEDS: lisINopril 5 MG (PRINIVIL) TABLET PO SCH (09:08)
[2020-09-02] MEDS: SENNA W/DOCUSATE (SENOKOT S) TABLET PO SCH ×2 (09:08→19:54)
[2020-09-02] MEDS: DICLOFENAC 1% GEL 100 GM (VOLTAREN) TUBE TP SCH ×2 (09:09→20:11)
[2020-09-02] MEDS: COLLAGENASE 30 GM (SANTYL) TUBE TP SCH (09:12)
[2020-09-02] MEDS: PARoxetine 20 MG (PAXIL) TAB PO SCH (09:14)
[2020-09-02] MEDS: RT-ALBUTEROL/IPRATROPIUM 3 ML (DUONEB) VIAL INH SCH ×3 (10:33→19:18)
--- NOTE | 2020-09-02 11:30 | NUR ---
DR. ISAACS HERE AND TOENAIL CARE DONE.
--- NOTE | 2020-09-02 11:33 | Podiatry Progress Note ---
Standard Progress Note Progress Notes/Assess & Plan Date Seen by a Provider: Sep 02, 2020 Time Seen by a Provider: 11:32 Progress/Assessment & Plan Consult dictated. Foot care given. Follow up in office as needed. Final Diagnosis Diabetic Neuropathy, PVD, Onychomycosis, DFU right CHANTEL ISAACS DPM Sep 02, 2020 11:33
[2020-09-02] MEDS ORDERED: FLU QUADRIvalent (3YOA+) 60 mcg/0.5 ml 2020-21 (AFLURIA) IM ONE (12:30)
[2020-09-02] MEDS ORDERED: HYDR-3817 PO (13:19)
[2020-09-02] MEDS ORDERED: FENO145T26 PO (13:19)
[2020-09-02] MEDS ORDERED: PRED10TA22 PO (13:19)
[2020-09-02] MEDS ORDERED: POTA10TA PO (13:19)
[2020-09-02] MEDS ORDERED: PARO30TA3 PO (13:19)
[2020-09-02] MEDS ORDERED: PREG150C46 PO (13:19)
[2020-09-02] MEDS ORDERED: FURO80TA3 PO (13:19)
--- NOTE | 2020-09-02 13:32 | Occupational Ther Daily Note ---
OT Current Status-Daily Note Subjective Pt alert, lying in bed. Pt agrees to therapy. Pt stated that she was cold, GARCIA adjusted temp in room. No c/o pain. Mental Status/Objective Patient Orientation: Person, Place, Time, Situation Attachments: IV (midline), Oxygen (2L) ADL-Treatment Therapy Code Descriptions/Definitions Functional [place] Measure: 0=Not Assessed/NA 4=Minimal Assistance 1=Total Assistance 5=Supervision or Setup 2=Maximal Assistance 6=Modified [place] 3=Moderate Assistance 7=Complete IndependenceSCALE: Activities may be completed with or without assistive devices. 4-Bvvmtmmgfl-rfowbcz completes the activity by him/herself with no assistance from a helper. 5-Set-up or Clean-up Assistance-helper sets up or cleans up; patient completes activity. [place] assists only prior to or following the activity. 4-Supervision or Touching Assistance-helper provides verbal cues and/or touching/steadying and/or contact guard assistance as patient completes activity. Assistance may be provided throughout the activity or intermittently. 3-Partial/Moderate Assistance-helper does LESS THAN HALF the effort. [place] lifts, holds or supports trunk or limbs, but provides less than half the effort. 2-Substantial/Maximal Assistance-helper does MORE THAN HALF the effort. [place] lifts or holds trunk or limbs and provides more than half the effort. 6-Ntvliopfi-dmvehq does ALL the effort. Patient does none of the effort to complete the activity. Or, the assistance of 2 or more helpers is required for the patient to complete the activity. If activity was not attempted, code reason: 7-Patient Refused. 9-Not Applicable-not attempted and the patient did not perform the activity b efore the current illness, exacerbation or injury. 10-Not Attempted due to Environmental Limitations-(lack of equipment, weather restraints, etc.). 88-Not Attempted due to Medical Conditions or Safety Concerns. Other Treatment Pt given HEP and light resistance theraband for use in room. Pt completed 2 sets 10 reps of light resistance theraband with skilled instruction for technique and modification. Pt has decreased AROM in L shldr while sitting EOB. WNL AROM in L shldr while in supine. Pt educated on positioning B shldrs in correct alignment to decrease pain with movement or exercise. In sitting pt completed 3 of the 6 exercises with theraband, other exercises against gravity in first set. When pt was in supine, pt able to complete all 6 with light resistance theraband. After session, pt lying in bed with call light/phone in reach. All needs met in room. OT Teacher Selection Specialist Goals Longterm Goals Time Frame: Sep 19, 2020 Eating (QC): 6 Oral Hygiene (QC): 6 Toileting Hygiene (QC): 6 Shower/Bathe Self (QC): 6 Upper Body Dressing (QC): 6 Lower Body Dressing (QC): 6 On/Off Footwear (QC): 6 Additional Goals: 1-Demonstrate ADL Tasks, 2-Verbalize Understanding, 3- ImproveStrength/[place] 1=Demonstrate adherence to instructed precautions during ADL tasks. 2=Patient will verbalize/demonstrate understanding of assistive devices/modifications for ADL. 3=Patient will improve strength/tolerance for activity to enable patient to perform ADL's. OT Education/Plan Problem List/Assessment Assessment: Decreased Activ Tolerance, Decreased UE Strength, Impaired I ADL's, Impaired Self-Care Skills Discharge Recommendations Plan/Recommendations: Continue POC Treatment Plan/Plan of Care Patient would benefit from OT for education, treatment and training to promote independence in ADL's, mobility, safety and/or upper extremity function for ADL's. Plan of Care: ADL Retraining, Functional Mobility, Group Exercise/Act as Ind, UE Funct Exercise/Act Treatment Duration: Sep 19, 2020 Frequency: At least 5 of 7 days/Wk (IRF) Estimated Hrs Per Day: 1.5 hours per day Agreement: Yes Rehab Potential: Fair Time/GCodes Start Time: 13:00 Stop Time: 13:30 Total Time Billed (hr/min): 30 Billed Treatment Time 1 visit-EX 2 (30 min) MIKA SUE Sep 02, 2020 13:32
[2020-09-02] MEDS ORDERED: INSU200I4 SQ ×2 (13:36→21:07)
[2020-09-02] MEDS ORDERED: FEXO180T84 PO (13:36)
[2020-09-02] MEDS ORDERED: FENT1PAT11 TD ×2 (13:42→21:07)
[2020-09-02] MEDS ORDERED: PRD10T PO ×2 (13:43→21:07)
[2020-09-02] MEDS ORDERED: QUET25TA73 PO (14:06)
--- NOTE | 2020-09-02 14:24 | CONSULTATION REPORT ---
DATE OF SERVICE: 09/02/2020 REASON FOR CONSULTATION: Diabetic foot care. HISTORY OF PRESENT ILLNESS: This 55-year-old female presents for rehabilitation purposes at [facility]. She has been dealing with chronic back pain, which worsened and eventually led her to the septic shock with MSSA. The medical record indicates that she had an MRI, which revealed osteomyelitis of the Lumbar 2 and 3 vertebrae, presumed source is the right foot; chronic diabetic wound, which is now managed by Dr. Snyder. The patient is unable to reach for and care for her feet. PAST MEDICAL HISTORY: COPD, insulin-dependent diabetes, AFib, hypertension, migraines, CPAP, asthma, arthritis, anxiety, depression, GERD and history of left leg DVT. PAST SURGICAL HISTORY: Includes appendectomy, bladder cyst removal, cardiac ablation, cholecystectomy, right breast needle biopsy, umbilical hernia repair, total abdominal hysterectomy, left knee arthroplasty, right lung biopsy, Issac fundoplication, tubal ligation and bunionectomy. SOCIAL HISTORY: The patient is currently , lives with spouse. She is a former smoker, quit approximately 5 years ago. Denies alcohol use. ALLERGIES: SHE IS ALLERGIC TO PENICILLIN, TETRACYCLINE AND ADHESIVE TAPE, GABAPENTIN AND MORPHINE. CURRENT MEDICATIONS: Listed on the patient's chart. PHYSICAL EXAMINATION: LOWER EXTREMITY: The patient has diminished pedal pulses bilaterally, nonpalpable bilateral dorsalis pedis pulse and posterior tibial pulse. Cap refill time is less than 3 seconds. Digital hair growth again is absent, and no necrosis is noted at this time to the skin. NEUROLOGIC: The patient has absent protective sensation per 10 gram monofilament wire examination bilaterally, absent vibratory sensation to the forefoot bilaterally. Deep tendon reflexes to the Achilles tendon are diminished. DERMATOLOGIC: The patient has thick yellow dystrophic toenails with subungual debris associated with the 3, 4 and 5 and L1, 2, 3, 4 and 5 digits. There is a superficial lesion to the medial aspect of the left second digit at the distal interphalangeal joint where the left hallux toenail is abutting the second toe. There is also a dressing applied to the plantar aspect of the right arch, which was undisturbed as it is under the care of Dr. Snyder. MUSCULOSKELETAL FINDINGS: She has significant lateral deviation to the hallux bilaterally. Also some contracted toes 2 through 5 bilaterally. Muscle strength is 4/5 muscle strength to the four major quadrants of the foot. ASSESSMENT: 1. Atherosclerosis. 2. Diabetic neuropathy. 3. Onychomycosis. 4. Hallux valgus. 5. Hammer digit syndrome bilaterally. PLAN: Various treatment options were discussed with the patient today. We discussed diabetic foot care in general. The patient's toenails were debrided manually mechanically. Betadine applied. I highly recommend the patient utilize a toe spacer between the first and second digit of left foot. Once her ulceration is healed, would also highly recommend the patient be placed in custom insoles and diabetic shoes due to her significant orthopedic deformities. We will see the patient in the office when she is discharged from the hospital or as necessary here in the hospital. Job ID: [id number] DocumentID: [id number] Dictated Date: 09/02/2020 11:32:05 Entry Table Operator Date: 09/02/2020 14:24:09 Dictated By: ROBYN ISSA
[2020-09-02] MEDS: UMECLIDINIUM BROMIDE (INCRUSE ELLIPTA) 7'S IH SCH (14:40)
--- NOTE | 2020-09-02 15:19 | Physical Therapy Daily Note ---
PT Daily Note-Current Subjective Pt laying Supine in bed upon arrival. Pt agrees to PT. Pt asks to use BR. Pain Location: No Pain Reported Mental Status Patient Orientation: Person, Place, Situation Attachments: Oxygen (4L) Transfers SCALE: Activities may be completed with or without assistive devices. 8-Atrlcxirmj-zoshjlv completes the activity by him/herself with no assistance from a helper. 5-Set-up or Clean-up Assistance-helper sets up or cleans up; patient completes activity. Alpine assists only prior to or following the activity. 4-Supervision or Touching Assistance-helper provides verbal cues and/or touching/steadying and/or contact guard assistance as patient completes activity. Assistance may be provided throughout the activity or intermittently. 3-Partial/Moderate Assistance-helper does LESS THAN HALF the effort. Alpine lifts, holds or supports trunk or limbs, but provides less than half the effort. 2-Substantial/Maximal Assistance-helper does MORE THAN HALF the effort. Alpine lifts or holds trunk or limbs and provides more than half the effort. 5-Wpaijkiup-atbnsr does ALL the effort. Patient does none of the effort to complete the activity. Or, the assistance of 2 or more helpers is required for the patient to complete the activity. If activity was not attempted, code reason: 7-Patient Refused. 9-Not Applicable-not attempted and the patient did not perform the activity before the current illness, exacerbation or injury. 10-Not Attempted due to Environmental Limitations-(lack of equipment, weather restraints, etc.). 88-Not Attempted due to Medical Conditions or Safety Concerns. Lying to Sitting/Side of Bed(Q: 6 Sit to Stand (QC): 6 Toilet Transfer (QC): 6 Weight Bearing Right Lower Extremity: Right Full Weight Bearing Left Lower Extremity: Left Full Weight Bearing Gait Training Does the Patient Walk?: Yes Distance: 150' Walk 10 feet (QC): 5 Walk 50 ft with 2 Turns(QC): 5 Walk 150 ft (QC): 5 Gait Persons Needed: 1 Gait Assistive Device: FWW Treatments TF to standing, uses BR including pericare independently. Pt amb. in hallway with RB as needed before returning to room to rest. All needs met, call light in hand. Assessment Current Status: Good Progress Pt fatigues and needs RB. PT Short Term Goals Short Term Goals Time Frame: Sep 02, 2020 Sit to lyin Lying to sitting on side of be: 6 Sit to stand: 5 Walk 50 feet with two turns: 4 Walk 150 feet: 4 PT Long-Term Goals International Marketing Intern Goals PT International Marketing Intern Goals Time Frame: Sep 16, 2020 Roll Left & Right (QC): 6 Sit to Lying (QC): 6 Lying-Sitting on Side/Bed(QC): 6 Sit to Stand (QC): 6 Chair/Hqo-bf-Dzxif Xfer(QC): 6 Toilet Transfer (QC): 6 Car Transfer (QC): 6 Does the Patient Walk: Yes Walk 10 feet (QC): 6 Walk 50ft with 2 Turns (QC): 6 Walk 150 ft (QC): 5 Walking 10ft on Uneven Surface: 5 1 Step (curb) (QC): 6 4 Steps (QC): 4 12 Steps (QC): 4 Picking up an Object (QC): 4 Does the Pt use WC or Scooter?: Yes Wheel 50 feet with 2 turns (QC: 6 Type: Manual Wheel 150 feet: 6 Type: Manual PT Plan Problem List Problem List: Activity Tolerance, Functional Strength, Gait Treatment/Plan Treatment Plan: Continue Plan of Care Treatment Plan: Bed Mobility, Education, Functional Activity Chencho, Functional Strength, Group Therapy, Gait, Safety, Therapeutic Exercise, Transfers Treatment Duration: Sep 16, 2020 Frequency: At least 5 of 7 days/Wk (IRF) Estimated Hrs Per Day: 1.5 hours per day Patient and/or Family Agrees t: Yes Safety Risks/Education Patient Education: Correct Positioning, Safety Issues Teaching Recipient: Patient Teaching Methods: Discussion Response to Teaching: Verbalize Understanding Time/GCodes Time In: 1400 Time Out: 1430 Total Billed Treatment Time: 30 Total Billed Treatment 1, FA (15m) & GT (15m) ERMIAS BALDERAS DIMPLING MACHINE OPERATOR Sep 02, 2020 15:19
[2020-09-02 16:21] VITALS: BP 114/57
[2020-09-02] MEDS: ENOXAPARIN 40 MG/0.4 ML (LOVENOX) SYR SC SCH (16:39)
[2020-09-02] MEDS: BETAMETHASONE DIPRO (AUGMENTED) 0.05% CREAM 15 GM TOP SCH (20:11)
[2020-09-02] MEDS: FENOFIBRATE, MICRO 67 MG (LOFIBRA) CAPSULE PO SCH (20:40)
[2020-09-02] MEDS: MONTELUKAST 10 MG (SINGULAIR) TAB PO SCH (20:41)
[2020-09-02] MEDS: MIRTAZAPINE 15 MG (REMERON) TAB PO SCH (20:41)
[2020-09-02] MEDS: LATANOPROST 0.005% (XALATAN) OPHTH SOLN 2.5 ML OU SCH (20:44)
[2020-09-02] MEDS ORDERED: FENT1PAT9 TD (21:07)
[2020-09-02] MEDS ORDERED: PNT400TCR PO (21:07)
[2020-09-02] MEDS ORDERED: PROC10TA10 PO (21:07)
[2020-09-02] MEDS ORDERED: LISI-556 PO (21:07)
[2020-09-02] MEDS ORDERED: ACHYD1T PO (21:07)
[2020-09-02] MEDS ORDERED: FURO40TA4 PO (21:07)
[2020-09-02] MEDS ORDERED: LACT1CAP7 PO (21:07)
[2020-09-02] MEDS ORDERED: FLUC100T6 PO (21:07)
[2020-09-02] MEDS ORDERED: ALPR1TAB7 PO (21:07)
[2020-09-02] MEDS ORDERED: SENN-20 PO (21:07)
--- NOTE | 2020-09-02 21:10 | D/C HH Face to Face Order ---
D/C Face to Face Orders Reconcile Patient Problems Problems Reviewed?: Yes Instructions for Patient [facility] Patient Instructions/FollowUp: PCP 1 week Physician to follow Patient: PCP Discharge Diet for Home: No Restrictions Patient Problems: Right foot DM wound Discitis Patient Data-Allergies,Ht & Wt Patient Allergies: Coded Allergies: Penicillins (Unverified Allergy, Unknown, 02/06/20) Tetracyclines (Unverified Allergy, Unknown, 02/06/20) adhesive tape (Unverified Allergy, Unknown, 02/06/20) gabapentin (Unverified Allergy, Unknown, 02/06/20) morphine (Unverified Allergy, Unknown, PT TAKES LORTAB AT HOME, 08/26/20) Home Health Need/Face to Face Date of Face to Face: Sep 02, 2020 Clinical Findings: Generalized weakness and fatigue, Instability, Muscle weakness, Non or partial weight bearing, Pain with ambulation, Shortness of breath, Non-healing wound I have seen Pt riei-zf-mhqs: Yes Discharged To: Home Diagnosis/Conditions: Right foot DM wound Discitis Patient is Homebound due to: Brian fall risk due to instabilty, Pain w/ambulation Homebound Status Due to the above stated illness, injury or surgical procedure (medical condition or diagnosis) and associated clinical findings, the patient is homebound because of his/her inability to leave home except with aid of a supportive device and/or person AND leaving the home requires a considerable and taxing effort or is medically contraindicated. Pt req the following assistanc: Walker Home Health Nursing Orders Home Health Services Order: Nursing Services (wound care per Dr Snyder), Cad Librarian-Evaluate & Treat, Physical Therapy-Evaluate & Treat Certify Stmt I certify that this patient is under my care and that I, a nurse practitioner or a physician; a senior assistant manager working with me, had a face to face encounter that - meets the physician face to face encounter requirements with this patient as dated. ЕЛЕНА CRUZ DO Sep 02, 2020 21:10
[2020-09-03] MEDS: ceFAZolin 2 GM/50 ML (PRE-MIXED) IV SCH ×3 (01:47→16:15)
[2020-09-03] MEDS: RIFAMPIN 150 MG (RIFADIN) CAP PO SCH ×2 (06:00→14:34)
[2020-09-03] MEDS: predniSONE 10 MG TAB PO SCH (06:00)
[2020-09-03] MEDS: MULTIVIT W/MINERALS TAB (THERAGRAN M) PO SCH (06:00)
[2020-09-03] MEDS: VITAMIN D3 25 MCG (1,000 UNITS) TABLET PO SCH (06:01)
[2020-09-03] MEDS: FUROSEMIDE 40 MG (LASIX) TAB PO SCH (06:01)
[2020-09-03] MEDS: inSUlin ASPART (NovoLOG) 1 UNIT/0.01 ML (CHARGE PER UNIT) SC SCH ×3 (06:01→16:51)
[2020-09-03 06:02] VITALS: BP 113/56
[2020-09-03] MEDS: ONDANSETRON 4 MG (ZOFRAN) ORAL DISSOLVE TAB PO PRN (07:37)
[2020-09-03] MEDS: RT-ALBUTEROL/IPRATROPIUM 3 ML (DUONEB) VIAL INH SCH ×2 (07:50→14:48)
[2020-09-03 08:00] VITALS: BP 103/58
--- NOTE | 2020-09-03 08:22 | Therapy Team Discharge Summary ---
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 Upon evaluation patient able to roll independently. Pt was supervised with sit EOB <->lying with SBA. Pt received CGA for Sit to Stand, Chair to chair, toilet, and car transfers, ambula memo 75' with a rolling walker with CGA (including 50' with at least 2 turns of 90 degrees and 10' over an uneven surface), can propel a manual WC 75' with SBA, and can go up and down 1 step using a rolling walker with CGA. Patient has been performing bed mobility and transfer training, balance and endurance training, functional strengthening, stair training, gait training, and education. 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 Now, patient is independent with bed mobility and transfers, independent with car transfer, ambulates 200' with a rolling walker with independence (including 50' with at least 2 turns of 90 degrees and 10' over an uneven surface). Patient is being discharged from this facility today and will be discharged from PT at this time. Occupational Therapy Decreased Activ Tolerance, Decreased UE Strength, Impaired I ADL's, Impaired Self-Care Skills PT Usp Goals Usp Goals PT Sports Media Goals Time Frame: Sep 16, 2020 Roll Left to Right (QC): 6 Sit to Lying (QC): 6 Lying-Sitting on Side/Bed(QC): 6 Sit to Stand (QC): 6 Chair/Gif-gm-Nnzhv Xfer(QC): 6 Car Transfer (QC): 6 Does the Patient Walk: Yes Walk 10 feet (QC): 6 Walk 10ft-Uneven Surface(QC): 5 Walk 50ft with 2 Turns (QC): 6 Walk 150 ft (QC): 5 Does the Pt use WC or Scooter?: Yes Wheel 50 feet with 2 turns (QC: 6 1 Step (curb) (QC): 6 4 Steps (QC): 4 12 Steps (QC): 4 Picking up an Object (QC): 4 OT Sports Media Goals Sports Media Goals Time Frame: Sep 19, 2020 Eating (QC): 6 Oral Hygiene (QC): 6 Shower/Bathe Self (QC): 6 Upper Body Dressing (QC): 6 Lower Body Dressing (QC): 6 On/Off Footwear (QC): 6 Toileting Hygiene (QC): 6 Toilet/Commode Transfer (QC): 6 Additional Goals: 1-Demonstrate ADL Tasks, 2-Verbalize Understanding, 3- ImproveStrength/Chencho 1=Demonstrate adherence to instructed precautions during ADL tasks. 2=Patient will verbalize/demonstrate understanding of assistive devices/modifications for ADL. 3=Patient will improve strength/tolerance for activity to enable patient to perform ADL's. SEAN MARTINEZ PT Sep 03, 2020 08:22
[2020-09-03] MEDS: LACTOBACILLUS ACIDOPHILUS (PROBIOTIC) CAPSULE PO SCH ×2 (08:48→14:34)
[2020-09-03] MEDS: SENNA W/DOCUSATE (SENOKOT S) TABLET PO SCH (08:48)
[2020-09-03] MEDS: QUEtiapine 25 MG (SEROquel) TAB IMMEDIATE RELEASE PO SCH (08:48)
[2020-09-03] MEDS: SPIRONOLACTONE 25 MG (ALDACTONE) TAB PO SCH (08:48)
[2020-09-03] MEDS: lisINopril 5 MG (PRINIVIL) TABLET PO SCH (08:48)
[2020-09-03] MEDS: PENTOXIFYLLINE ER 400 MG (TRENtal) TAB PO SCH ×2 (08:48→14:34)
[2020-09-03] MEDS: LORATADINE (CLARITIN) 10 MG TAB PO SCH (08:48)
[2020-09-03] MEDS: PANTOPRAZOLE 40 MG (PROTONIX) TAB PO SCH (08:48)
[2020-09-03] MEDS: MELOXICAM 7.5 MG (MOBIC) TABLET PO SCH (08:48)
[2020-09-03] MEDS: PREGABALIN 100 MG (LYRICA) CAPSULE PO SCH (08:48)
[2020-09-03] MEDS: DOCUSATE SODIUM 100 MG (COLACE) CAP PO SCH (08:48)
[2020-09-03] MEDS: FLUTICASONE NASAL SPRAY (FLONASE) 16 GM BTL NS SCH (08:50)
[2020-09-03] MEDS: SALINE NASAL SPRAY (OCEAN) 45 ML BTL SCH (08:51)
[2020-09-03] MEDS: BRIMONIDINE 0.2% (ALPHAGAN) OPHTH SOLN 5 ML BTL OU SCH (08:51)
[2020-09-03] MEDS: polyethylene glycoL POWDER 17 GM (MIRALAX) PACK PO SCH (08:52)
[2020-09-03] MEDS: DICLOFENAC 1% GEL 100 GM (VOLTAREN) TUBE TP SCH (08:55)
[2020-09-03] MEDS: COLLAGENASE 30 GM (SANTYL) TUBE TP SCH (09:09)
--- NOTE | 2020-09-03 09:31 | Discharge Summary ---
Diagnosis/Chief Complaint Date of Admission Aug 26, 2020 at 14:08 Date of Discharge Discharge Date: Sep 03, 2020 Discharge Diagnosis Assessment: Myopathy Discitis on Ancef until 09/03/20 DM Right DM foot ulcer HTN HLP O2 dependent MARY ANN Plan: DM management IRF protocol Pain management 08/27/20: Stop Potassium due to level of 5.5 Use zofran and Compazine Appreciate Dr. Snyder consultation Appreciated Dr. Eid consultation Monitor diarrhea 08/28/20: Monitor nausea Compazine IRF protocol 08/29/20: Nausea management Monitor sugar Monitor BP Doing well Chronically ill and debilitated 08/30/20: Continue abx IRF protocol Nausea treatment 08/31/20: Compazine Monitor closely DC 09/0309/01/20: Stop calcium due to hypercalcemia Complete antibiotics on Tuesday Discharge on Tuesday09/02/20: Discharge tomorrow Tuesday Wound care next week Monitor diarrhea Compazine for nausea (1) Myopathy (2) Diabetic foot ulcer (3) Diabetes (4) Chronic pain (5) Nausea (6) MARY ANN (obstructive sleep apnea) (7) Oxygen dependent (8) Discitis Discharge Summary Discharge Physical Examination Allergies: Coded Allergies: Penicillins (Unverified Allergy, Unknown, 02/06/20) Tetracyclines (Unverified Allergy, Unknown, 02/06/20) adhesive tape (Unverified Allergy, Unknown, 02/06/20) gabapentin (Unverified Allergy, Unknown, 02/06/20) morphine (Unverified Allergy, Unknown, PT TAKES LORTAB AT HOME, 08/26/20) Vitals & I&Os Vital Signs Date Time Temp Pulse Resp B/P (MAP) Pulse Ox O2 Delivery O2 Flow Rate FiO2 09/03/20 18:05 37.1 81 18 103/58 98 Nasal Cannula 2.00 General Appearance: Alert, Oriented X3, Cooperative Respiratory: Clear to Auscultation Neuro: Normal Gait, Normal Speech, Strength at 5/5 X4 Ext Psych/Mental Status: Mental Status NL Hospital Course Was the Problem List Reviewed?: Yes Patient had an uncomplicated course after arriving from [place] after discitis and maintained on abx for total of 6 weeks. Chronic nausea improved with Holly soares along with Dr Eid consult in case EGD required. Overall she was able to participate in therapy along with regaining ADL independence in order to return home with family to continue recovery with . Dr Snyder assessed her right foot DM ulcer and will follow as outpatient. Patient improved overall and was able to DC in good condition. Labs (last 24 hrs) Laboratory Tests 08/26/20 15:42: Glucometer 206H 08/26/20 20:31: Glucometer 179H 08/27/20 06:00: White Blood Count 10.4, Red Blood Count 3.43L, Hemoglobin 9.4L, Hematocrit 31L, Mean Corpuscular Volume 90, Mean Corpuscular Hemoglobin 27, Mean Corpuscular Hemoglobin Concent 30L, Red Cell Distribution Width 17.9H, Platelet Count 326, Mean Platelet Volume 9.2, Immature Granulocyte % (Auto) 3, Neutrophils (%) (Aut o) 61, Lymphocytes (%) (Auto) 20, Monocytes (%) (Auto) 11, Eosinophils (%) (Auto) 4, Basophils (%) (Auto) 1, Neutrophils # (Auto) 6.4, Lymphocytes # (Auto) 2.1, Monocytes # (Auto) 1.1H, Eosinophils # (Auto) 0.4H, Basophils # (Auto) 0.1, Immature Granulocyte # (Auto) 0.3H, Sodium Level 135, Potassium Level 5.5H, Chloride Level 103, Carbon Dioxide Level 23, Anion Gap 9, Blood Urea Nitrogen 7, Creatinine 0.73, Estimat Glomerular Filtration Rate > 60, BUN/Creatinine Ratio 10, Glucose Level 142H, Calcium Level 10.6H, Corrected Calcium 11.4H, Total Bilirubin 0.2, Aspartate Amino Transf (AST/SGOT) 17, Alanine Aminotransferase (ALT/SGPT) 6, Alkaline Phosphatase 98, Total Protein 6.5, Albumin 3.0L 08/27/20 06:05: Glucometer 169H 08/27/20 11:50: Glucometer 237H 08/27/20 15:34: Glucometer 186H 08/27/20 21:07: Glucometer 216H 08/28/20 05:35: Glucometer 189H 08/28/20 10:53: Glucometer 280H 08/28/20 17:08: Glucometer 227H 08/28/20 20:11: Glucometer 230H 08/29/20 05:56: Glucometer 163H 08/29/20 10:55: Glucometer 243H 08/29/20 15:26: Glucometer 238H 08/29/20 20:13: Glucometer 248H 08/30/20 06:50: Glucometer 172H 08/30/20 10:50: Glucometer 262H 08/30/20 15:49: Glucometer 220H 08/30/20 20:46: Glucometer 248H 08/31/20 06:48: Glucometer 147H 08/31/20 10:36: Glucometer 254H 08/31/20 12:39: Glucometer 213H 08/31/20 16:11: Glucometer 204H 08/31/20 20:17: Glucometer 241H 09/01/20 06:04: Glucometer 125H 09/01/20 06:05: White Blood Count 8.3, Red Blood Count 3.29L, Hemoglobin 9.1L, Hematocrit 29L, Mean Corpuscular Volume 87, Mean Corpuscular Hemoglobin 28, Mean Corpuscular Hemoglobin Concent 32, Red Cell Distribution Width 16.8H, Platelet Count 271, Mean Platelet Volume 10.4, Immature Granulocyte % (Auto) 1, Neutrophils (%) (Auto) 59, Lymphocytes (%) (Auto) 23, Monocytes (%) (Auto) 10, Eosinophils (%) (Auto) 5, Basophils (%) (Auto) 1, Neutrophils # (Auto) 4.9, Lymphocytes # (Auto) 1.9, Monocytes # (Auto) 0.8, Eosinophils # (Auto) 0.4H, Basophils # (Auto) 0.1, Immature Granulocyte # (Auto) 0.1, Sodium Level 140, Potassium Level 3.5L, Chloride Level 98, Carbon Dioxide Level 31, Anion Gap 11, Blood Urea Nitrogen 7, Creatinine 0.66, Estimat Glomerular Filtration Rate > 60, BUN/Creatinine Ratio 11, Glucose Level 125H, Calcium Level 13.0*H, Corrected Calcium 13.8H, Total Bilirubin 0.2, Aspartate Amino Transf (AST/SGOT) 21, Alanine Aminotransferase (ALT/SGPT) < 6, Alkaline Phosphatase 70, Total Protein 6.3L, Albumin 3.0L 09/01/20 10:48: Glucometer 254H 09/01/20 15:51: Glucometer 217H 09/01/20 17:43: Glucometer 202H 09/01/20 20:23: Glucometer 288H 09/02/20 05:12: Glucometer 180H 09/02/20 11:03: Glucometer 267H 09/02/20 15:30: Glucometer 266H 09/02/20 20:20: Glucometer 249H 09/03/20 05:59: Glucometer 147H 09/03/20 11:00: Glucometer 258H 09/03/20 15:15: Glucometer 218H Pending Labs Laboratory Tests 08/26/20 15:42: Glucometer 206 08/26/20 20:31: Glucometer 179 08/27/20 06:00: White Blood Count 10.4, Red Blood Count 3.43, Hemoglobin 9.4, Hematocrit 31, Mean Corpuscular Volume 90, Mean Corpuscular Hemoglobin 27, Mean Corpuscular Hemoglobin Concent 30, Red Cell Distribution Width 17.9, Platelet Count 326, Mean Platelet Volume 9.2, Immature Granulocyte % (Auto) 3, Neutrophils (%) (Auto) 61, Lymphocytes (%) (Auto) 20, Monocytes (%) (Auto) 11, Eosinophils (%) (Auto) 4, Basophils (%) (Auto) 1, Neutrophils # (Auto) 6.4, Lymphocytes # (Auto) 2.1, Monocytes # (Auto) 1.1, Eosinophils # (Auto) 0.4, Basophils # (Auto) 0.1, Immature Granulocyte # (Auto) 0.3, Sodium Level 135, Potassium Level 5.5, Chloride Level 103, Carbon Dioxide Level 23, Anion Gap 9, Blood Urea Nitrogen 7, Creatinine 0.73, Estimat Glomerular Filtration Rate > 60, BUN/Creatinine Ratio 10, Glucose Level 142, Calcium Level 10.6, Corrected Calcium 11.4, Total Bilirubin 0.2, Aspartate Amino Transf (AST/SGOT) 17, Alanine Aminotransferase (ALT/SGPT) 6, Alkaline Phosphatase 98, Total Protein 6.5, Albumin 3.0 08/27/20 06:05: Glucometer 169 08/27/20 11:50: Glucometer 237 08/27/20 15:34: Glucometer 186 08/27/20 21:07: Glucometer 216 08/28/20 05:35: Glucometer 189 08/28/20 10:53: Glucometer 280 08/28/20 17:08: Glucometer 227 08/28/20 20:11: Glucometer 230 08/29/20 05:56: Glucometer 163 08/29/20 10:55: Glucometer 243 08/29/20 15:26: Glucometer 238 08/29/20 20:13: Glucometer 248 08/30/20 06:50: Glucometer 172 08/30/20 10:50: Glucometer 262 08/30/20 15:49: Glucometer 220 08/30/20 20:46: Glucometer 248 08/31/20 06:48: Glucometer 147 08/31/20 10:36: Glucometer 254 08/31/20 12:39: Glucometer 213 08/31/20 16:11: Glucometer 204 08/31/20 20:17: Glucometer 241 09/01/20 06:04: Glucometer 125 09/01/20 06:05: White Blood Count 8.3, Red Blood Count 3.29, Hemoglobin 9.1, Hematocrit 29, Mean Corpuscular Volume 87, Mean Corpuscular Hemoglobin 28, Mean Corpuscular Hemoglobin Concent 32, Red Cell Distribution Width 16.8, Platelet Count 271, Mean Platelet Volume 10.4, Immature Granulocyte % (Auto) 1, Neutrophils (%) (Auto) 59, Lymphocytes (%) (Auto) 23, Monocytes (%) (Auto) 10, Eosinophils (%) (Auto) 5, Basophils (%) (Auto) 1, Neutrophils # (Auto) 4.9, Lymphocytes # (Auto) 1.9, Monocytes # (Auto) 0.8, Eosinophils # (Auto) 0.4, Basophils # (Auto) 0.1, Immature Granulocyte # (Auto) 0.1, Sodium Level 140, Potassium Level 3.5, Chloride Level 98, Carbon Dioxide Level 31, Anion Gap 11, Blood Urea Nitrogen 7, Creatinine 0.66, Estimat Glomerular Filtration Rate > 60, BUN/Creatinine Ratio 11, Glucose Level 125, Calcium Level 13.0, Corrected Calcium 13.8, Total Bilirubin 0.2, Aspartate Amino Transf (AST/SGOT) 21, Alanine Aminotransferase (ALT/SGPT) < 6, Alkaline Phosphatase 70, Total Protein 6.3, Albumin 3.0 09/01/20 10:48: Glucometer 254 09/01/20 15:51: Glucometer 217 09/01/20 17:43: Glucometer 202 09/01/20 20:23: Glucometer 288 09/02/20 05:12: Glucometer 180 09/02/20 11:03: Glucometer 267 09/02/20 15:30: Glucometer 266 09/02/20 20:20: Glucometer 249 09/03/20 05:59: Glucometer 147 09/03/20 11:00: Glucometer 258 09/03/20 15:15: Glucometer 218 Discharge Home Medications: Active Scripts Active Prednisone 10 Mg Tab 20 Mg PO DAILY@0700 Acidophilus-Pectin Capsule (Lactobacillus Acidophilus/Pect) 1 Each Capsule 2 Each PO TID Prochlorperazine Maleate 10 Mg Tablet 10 Mg PO Q6H PRN Senna-Time S Tablet (Sennosides/Docusate Sodium) 1 Each Tablet 1 Ea PO BID Furosemide 40 Mg Tablet 40 Mg PO DAILY@0700 HYDROcodone/APAP 10/325 TABLET (Acetaminophen/Hydrocodone Bitart) 1 Ea Tab 1 Ea PO Q4H PRN Lisinopril 5 Mg Tablet 5 Mg PO DAILY Pentoxifylline 400 Mg Tablet.er 400 Mg PO TID Fluconazole 100 Mg Tablet 100 Mg PO Q72H Fentanyl Patch 100 MCG (Fentanyl) 1 Each Patch.td72 100 Mcg TD Q72H APPLIES 50MCG AND 100MCG TO EQUAL 150MCG EVERY 72 HOURS Tresiba Flextouch U-200 (Insulin Degludec) 200 Unit/1 Ml Insuln.pen 15 Unit SQ DAILY 7 Days Alprazolam 1 Mg Tablet 1 Mg PO QID PRN Fentanyl Patch 50 MCG (Fentanyl) 1 Each Patch.td72 50 Mcg TD Q72H APPLIES 50MCG AND 100MCG TO EQUAL 150MCG EVERY 72 HOURS Reported Quetiapine Fumarate 25 Mg Tablet 25-50 Mg PO HS PRN Dena Allergy (Fexofenadine HCl) 180 Mg Tablet 180 Mg PO DAILY PRN Fenofibrate (Fenofibrate Nanocrystallized) 145 Mg Tablet 145 Mg PO 1700 Paroxetine HCl 30 Mg Tablet 60 Mg PO DAILY TAKES 2 (30MG) TABS Pregabalin 150 Mg Capsule 150 Mg PO BID Vitamin D3 (Cholecalciferol (Vitamin D3)) 25 Mcg Tablet 50 Mcg PO DAILY TAKES 2 (25MG) TABS Iprat-Albut 0.5-3(2.5) mg/3 ml (Ipratropium/Albuterol Sulfate) 3 Ml Ampul.neb 3 Ml IH Q4H PRN Tylenol Arthritis (Acetaminophen) 650 Mg Tablet.er 650 Mg PO Q6H PRN Spiriva (Tiotropium Welda) 1 Inh Aerp 1 Inh IH DAILY Aldactone (Spironolactone) 25 Mg Tablet 25 Mg PO BID Pantoprazole Sodium 40 Mg Tablet.dr 40 Mg PO DAILY Thera-M Tablet (Multivits,Ca,Minerals/Iron/FA) 1 Each Tablet 1 Each PO DAILY Montelukast Sodium 10 Mg Tablet 10 Mg PO HS Mirtazapine 15 Mg Tablet 15 Mg PO HS Meloxicam 15 Mg Tablet 15 Mg PO DAILY Latanoprost 2.5 Ml Drops 1 Drop OU HS Insulin Lispro 100 Unit/1 Ml Vial 0-14 Unit SQ ACHS Flonase Allergy Relief (Fluticasone Propionate) 9.9 Ml Flat Top.susp 2 Flat Top NS BID Antacid Maximum Strength (Calcium Carbonate) 400 Mg Tab.chew 400 Mg PO DAILY Alphagan P (Brimonidine Tartrate) 5 Ml Drops 1 Drop OU Q8H Aripiprazole 5 Mg Tablet 5 Mg PO HS Alendronate Sodium 70 Mg Tablet 70 Mg PO TUESDAY Instructions to patient/family Please see electronic discharge instructions given to patient. Diagnosis/Problems Diagnosis/Problems (1) Myopathy (2) Diabetic foot ulcer (3) Diabetes (4) Chronic pain (5) Nausea (6) MARY ANN (obstructive sleep apnea) (7) Oxygen dependent (8) Discitis Clinical Quality Measures DVT/VTE Risk/Contraindication: Risk Factor Score Per Nursin RFS Level Per Nursing on Admit: 4+=Very High ЕЛЕНА CRUZ DO Sep 03, 2020 09:31
--- NOTE | 2020-09-03 10:49 | Therapy Team Discharge Summary ---
Therapy Discharge Summary Discharge Recommendations Date of Discharge Occupational Therapy Pt admitted to ARU with disuse myopathy. At [facility], pt was independent with all ADLS and functional mobility, with occasional use of walker. Upon evaluation, pt was independent with feeding and oral care, SBA showering, set up upper body dressing, SBA lower body dressing, set up footwear, and CGA toileting. OT txs focus on increasing pt's BUE strength and functional endurance as well as increasing safety and independence with ADLs. Pt made good progress, meeting all goals and attaining independent level with all ADLs. Pt discharging from facility on this date, d/c from OT at this time. Decreased Activ Tolerance, Decreased UE Strength, Impaired I ADL's, Impaired Self-Care Skills PT Tool Setter Goals Tool Setter Goals PT Tool Setter Goals Time Frame: Sep 16, 2020 Roll Left to Right (QC): 6 Sit to Lying (QC): 6 Lying-Sitting on Side/Bed(QC): 6 Sit to Stand (QC): 6 Chair/Rhb-yr-Fnxso Xfer(QC): 6 Car Transfer (QC): 6 Does the Patient Walk: Yes Walk 10 feet (QC): 6 Walk 10ft-Uneven Surface(QC): 5 Walk 50ft with 2 Turns (QC): 6 Walk 150 ft (QC): 5 Does the Pt use WC or Scooter?: Yes Wheel 50 feet with 2 turns (QC: 6 1 Step (curb) (QC): 6 4 Steps (QC): 4 12 Steps (QC): 4 Picking up an Object (QC): 4 OT Assisted Goals Tool Setter Goals Time Frame: Sep 19, 2020 Eating (QC): 6 (met) Oral Hygiene (QC): 6 (met) Shower/Bathe Self (QC): 6 (met) Upper Body Dressing (QC): 6 (met) Lower Body Dressing (QC): 6 (met) On/Off Footwear (QC): 6 (met) Toileting Hygiene (QC): 6 (met) Toilet/Commode Transfer (QC): 6 (met) Additional Goals: 1-Demonstrate ADL Tasks, 2-Verbalize Understanding, 3- ImproveStrength/[place] 1=Demonstrate adherence to instructed precautions during ADL tasks. 2=Patient will verbalize/demonstrate understanding of assistive d evices/modifications for ADL. 3=Patient will improve strength/tolerance for activity to enable patient to perform ADL's. KATIE ROBLERO OT Sep 03, 2020 10:49
[2020-09-03] MEDS: PARoxetine 20 MG (PAXIL) TAB PO SCH (11:35)
[2020-09-03] MEDS: UMECLIDINIUM BROMIDE (INCRUSE ELLIPTA) 7'S IH SCH (14:47)
--- NOTE | 2020-09-03 14:56 | NUR ---
"RD ASSESSMENT PMHx: COPD; DM; HTN; HLD; MARY ANN; GERD; afib PT INTERACTION: Pt was awake and pleasant during nutrition follow-up. Pt states she has not been eating well since last assessment. Note avg PO intake 48% x4d, per chart review. Pt states some issues with diarrhea since last assessment. Note last BM was 09/02, and pt currently on bowel regimen of colace BID; senna BID; and miralax BID, per chart review. Note presence of wound (R foot ulcer), per chart review. ABNORMAL NUTRITION-RELATED LAB VALUES LOW: K 3.5; Pro 6.3; alb 3.0 HIGH: glu 125; Ca 13.0 Est. kcal needs: 1450 kcal | 20 kcal/kg Est. Pro needs: 87 g Pro | 1.2 g Pro/kg PES STATEMENT: Inadequate oral intake (NI-2.1) related to loss of appetite | diarrhea as evidenced by pt interview | avg PO intake 48% x4d Inadequate protein intake (NI-5.6.1) related to increased protein needs as evidenced by presence of wound (R foot ulcer) INTERVENTION: Continue with current diet order of CHO 60g/m 3snack diet. Continue with current supplementation order of Ensure HP (vary) with meals TID, for perceived benefit to wound healing. Provides 160 kcal and 16 g Pro per serving. Encouraged pt to eat when able. Will continue to follow and reassess as pt needs, intake, and status change. Saul Casillas, MS RD LD"
--- NOTE | 2020-09-03 15:43 | NUR ---
CM/SS PATIENT CARE CONFERENCE DISCHARGE FINALIZATION Regarding PCC Summary, patient is discharging today as planned. [facility]: Finalized with [facility] [place], confirmed agency receipt of orders and instructions regarding patient's continuum of care. RN PT OT orders. IMM2 presented, discussed, signed, charted. Patient has self-directed her slate picker time with her spouse based upon her last dose of IV Rx which will start around 1600. Unit RN aware of all arrangements and timelines.
[2020-09-03] MEDS: ENOXAPARIN 40 MG/0.4 ML (LOVENOX) SYR SC SCH (16:22)
--- NOTE | 2020-09-03 17:00 | NUR ---
PT REFUSED NOVOLOG D/T GOING HOME AND NOT EATING DINNER HERE AND AFRAID WOULD DROP HER BS TO FAST.
[2020-09-03 18:05] VITALS: BP 103/58
== END 2020-09-03 17:15 | disposition home health service (06) | DRG 92 ==
PROVIDERS: ADMIT Internal Medicine; ATTEND Internal Medicine
DX: G72.81 Critical illness myopathy (principal); M46.26 Osteomyelitis of vertebra, lumbar region; M46.46 Discitis, unspecified, lumbar region; E11.621 Type 2 diabetes mellitus with foot ulcer; L97.519 Non-pressure chronic ulcer of other part of right foot with unspecified severity; E87.5 Hyperkalemia; E83.52 Hypercalcemia; J44.9 Chronic obstructive pulmonary disease, unspecified; I10 Essential (primary) hypertension; E78.5 Hyperlipidemia, unspecified; G47.33 Obstructive sleep apnea (adult) (pediatric); J45.909 Unspecified asthma, uncomplicated; M19.91 Primary osteoarthritis, unspecified site; F41.9 Anxiety disorder, unspecified; F32.9 Major depressive disorder, single episode, unspecified; K21.9 Gastro-esophageal reflux disease without esophagitis; R11.0 Nausea; K42.9 Umbilical hernia without obstruction or gangrene; R19.7 Diarrhea, unspecified; E11.40 Type 2 diabetes mellitus with diabetic neuropathy, unspecified; I73.9 Peripheral vascular disease, unspecified; B35.1 Tinea unguium; I48.91 Unspecified atrial fibrillation; M20.12 Hallux valgus (acquired), left foot; M20.11 Hallux valgus (acquired), right foot; M20.42 Other hammer toe(s) (acquired), left foot; M20.41 Other hammer toe(s) (acquired), right foot; Z86.718 Personal history of other venous thrombosis and embolism; Z87.891 Personal history of nicotine dependence; Z90.710 Acquired absence of both cervix and uterus; Z90.49 Acquired absence of other specified parts of digestive tract; Z90.89 Acquired absence of other organs; Z79.4 Long term (current) use of insulin; Z99.81 Dependence on supplemental oxygen; Z79.2 Long term (current) use of antibiotics; Z23 Encounter for immunization
CPT/HCPCS: 36415; 74019; 80053; 82962; 85025; 90686; 94640

== ENCOUNTER → 2020-09-09 | Outpatient (CLI) | payer MEDICARE, OTHER ==
[~2020-09-09] MED LIST changes: +ACET-2650 PO; +ACHYD1T PO; +ALEN70TA2 PO; +ALEN70TA5 PO; +ALPR1TAB7 PO; +ALTE2VIA2 BC; +ARIP5TAB12 PO; +ARIP5TAB57 PO; +BRIM10DR16 OP; +BRIM5DRO2 OU; +BUDE0.5A IH; +BUDE0.5A7 IH; -CATHETER FLUSH 10 ML SYR IV PRN; +CEFA1VIA3 IV; +CETI10TA49 PO; +CHOL10002 PO; +CLC600T PO; +CLOB15CR2 TP; +DEXT50DI2 IV; +DICL20GE TP; +ENOX40DI13 SQ; +FENO145T26 PO; +FENO54TA PO; +FENT1PAT11 TD; +FENT1PAT9 TD; +FEXO180T84 PO; +FLUC100T6 PO; +FLUT9.9S NS; +FURO20TA4 PO; +FURO40TA4 PO; +FURO80TA3 PO; +HYDR-3817 PO; +HYDR-4196 PO; +INSU100V39 SQ; +INSU100V6 SQ; +INSU200I4 SQ; +IPRA3AMP31 IH; +IPRA4AER IH; +LACT1CAP7 PO; +LATA2.5D5 OU; +LISI-556 PO; +LOPE2CAP PO; +MELO15TA39 PO; +MIRT15TA6 PO; +MONT10TA26 PO; +MULT1TAB63 PO; +NAPR250T6 PO; +ONDA4TAB11 PO; +PANT40TA52 PO; +PARO10TA3 PO; +PARO30TA3 PO; +PNT400TCR PO; +POTA10TA PO; +POTA20TA8 PO; +PRD10T PO; +PRED10TA22 PO; +PREG100C PO; +PREG150C46 PO; +PROC-1 PO; +PROC10TA10 PO; +QUET25TA73 PO; -REGADENOSON 0.4 MG/5 ML SYR (LEXISCAN) IV ONE; +RIFA300C3 PO; +SENN-20 PO; +SODI30SP2 NSEACH; +SPIR25TA PO; +TIOT18CA2 IH; +TOPI50TA37 PO; +[UNRECOGNIZED DRUG - CODE] PO; +[UNRECOGNIZED DRUG - CODE] PO
== END ==
LOC: WOUNDCARE 08:45
PROVIDERS: ATTEND Surgery
DX: E11.621 Type 2 diabetes mellitus with foot ulcer (principal); E11.42 Type 2 diabetes mellitus with diabetic polyneuropathy; L97.413 Non-pressure chronic ulcer of right heel and midfoot with necrosis of muscle; J44.9 Chronic obstructive pulmonary disease, unspecified; L95.8 Other vasculitis limited to the skin
CPT/HCPCS: 11043; G0463

== ENCOUNTER → 2020-09-09 | Outpatient (CLI) | payer MEDICARE, OTHER | LOC: LAB 10:11 | PROVIDERS: ATTEND Surgery | DX: E11.621 Type 2 diabetes mellitus with foot ulcer (principal); E11.42 Type 2 diabetes mellitus with diabetic polyneuropathy; L97.413 Non-pressure chronic ulcer of right heel and midfoot with necrosis of muscle; J44.9 Chronic obstructive pulmonary disease, unspecified; L95.8 Other vasculitis limited to the skin | CPT/HCPCS: 36415; 83036 ==

== ENCOUNTER → 2020-09-23 | Outpatient (CLI) | payer MEDICARE, OTHER ==
[~2020-09-23] MED LIST changes: -ALEN70TA5 PO; +ALEN70TA69 PO
== END ==
LOC: WOUNDCARE 08:25
PROVIDERS: ATTEND Surgery
DX: E11.621 Type 2 diabetes mellitus with foot ulcer (principal); E11.42 Type 2 diabetes mellitus with diabetic polyneuropathy; L95.8 Other vasculitis limited to the skin; L97.412 Non-pressure chronic ulcer of right heel and midfoot with fat layer exposed; J44.9 Chronic obstructive pulmonary disease, unspecified; I96 Gangrene, not elsewhere classified
CPT/HCPCS: 11042; G0463

== ENCOUNTER → 2020-09-30 | Outpatient (CLI) | payer MEDICARE, OTHER | LOC: WOUNDCARE 09:11 | PROVIDERS: ATTEND Surgery | DX: E11.621 Type 2 diabetes mellitus with foot ulcer (principal); E11.42 Type 2 diabetes mellitus with diabetic polyneuropathy; I96 Gangrene, not elsewhere classified; L97.412 Non-pressure chronic ulcer of right heel and midfoot with fat layer exposed; L98.491 Non-pressure chronic ulcer of skin of other sites limited to breakdown of skin; J44.9 Chronic obstructive pulmonary disease, unspecified; L95.8 Other vasculitis limited to the skin; L22 Diaper dermatitis | CPT/HCPCS: 11042; G0463 ==

== ENCOUNTER → 2020-10-07 | Outpatient (CLI) | payer MEDICARE, OTHER | LOC: WOUNDCARE 08:06 | PROVIDERS: ATTEND Surgery | DX: I96 Gangrene, not elsewhere classified (principal); M86.471 Chronic osteomyelitis with draining sinus, right ankle and foot; J44.9 Chronic obstructive pulmonary disease, unspecified; E11.621 Type 2 diabetes mellitus with foot ulcer; E11.42 Type 2 diabetes mellitus with diabetic polyneuropathy; L97.412 Non-pressure chronic ulcer of right heel and midfoot with fat layer exposed; L95.8 Other vasculitis limited to the skin; L22 Diaper dermatitis; L98.491 Non-pressure chronic ulcer of skin of other sites limited to breakdown of skin | CPT/HCPCS: 99213 ==

== ENCOUNTER → 2020-10-21 | Outpatient (CLI) | payer MEDICARE, OTHER | LOC: WOUNDCARE 08:16 | PROVIDERS: ATTEND Surgery | DX: E11.621 Type 2 diabetes mellitus with foot ulcer (principal); E11.42 Type 2 diabetes mellitus with diabetic polyneuropathy; J44.9 Chronic obstructive pulmonary disease, unspecified; I96 Gangrene, not elsewhere classified; L95.8 Other vasculitis limited to the skin; L97.412 Non-pressure chronic ulcer of right heel and midfoot with fat layer exposed; L22 Diaper dermatitis | CPT/HCPCS: 11042; G0463 ==

== ENCOUNTER → 2020-10-28 | Outpatient (CLI) | payer MEDICARE, OTHER ==
[~2020-10-28] MED LIST changes: -MONT10TA26 PO; +MONT10TA97 PO
== END ==
LOC: WOUNDCARE 08:56
PROVIDERS: ATTEND Surgery
DX: E11.621 Type 2 diabetes mellitus with foot ulcer (principal); I96 Gangrene, not elsewhere classified; J44.9 Chronic obstructive pulmonary disease, unspecified; E11.42 Type 2 diabetes mellitus with diabetic polyneuropathy; L97.222 Non-pressure chronic ulcer of left calf with fat layer exposed; L97.412 Non-pressure chronic ulcer of right heel and midfoot with fat layer exposed; L97.512 Non-pressure chronic ulcer of other part of right foot with fat layer exposed; L95.8 Other vasculitis limited to the skin
CPT/HCPCS: 11042; G0463

== ENCOUNTER → 2020-11-04 | Outpatient (CLI) | payer MEDICARE, OTHER | LOC: WOUNDCARE 08:06 | PROVIDERS: ATTEND Surgery | DX: L97.516 Non-pressure chronic ulcer of other part of right foot with bone involvement without evidence of necrosis (principal); E11.621 Type 2 diabetes mellitus with foot ulcer; L97.222 Non-pressure chronic ulcer of left calf with fat layer exposed; L95.8 Other vasculitis limited to the skin; E11.42 Type 2 diabetes mellitus with diabetic polyneuropathy; L97.412 Non-pressure chronic ulcer of right heel and midfoot with fat layer exposed; J44.9 Chronic obstructive pulmonary disease, unspecified; E11.65 Type 2 diabetes mellitus with hyperglycemia; E11.22 Type 2 diabetes mellitus with diabetic chronic kidney disease; N18.30 Chronic kidney disease, stage 3 unspecified; E11.52 Type 2 diabetes mellitus with diabetic peripheral angiopathy with gangrene | CPT/HCPCS: 11042; 11043; A6260; G0463 ==

== ENCOUNTER → 2020-11-11 | Outpatient (CLI) | payer MEDICARE, OTHER | LOC: WOUNDCARE 08:02 | PROVIDERS: ATTEND Surgery | DX: E11.621 Type 2 diabetes mellitus with foot ulcer (principal); E11.52 Type 2 diabetes mellitus with diabetic peripheral angiopathy with gangrene; E11.42 Type 2 diabetes mellitus with diabetic polyneuropathy; E11.65 Type 2 diabetes mellitus with hyperglycemia; E11.22 Type 2 diabetes mellitus with diabetic chronic kidney disease; I96 Gangrene, not elsewhere classified; N18.30 Chronic kidney disease, stage 3 unspecified; J44.9 Chronic obstructive pulmonary disease, unspecified; L97.412 Non-pressure chronic ulcer of right heel and midfoot with fat layer exposed; L95.8 Other vasculitis limited to the skin; L97.222 Non-pressure chronic ulcer of left calf with fat layer exposed; L97.516 Non-pressure chronic ulcer of other part of right foot with bone involvement without evidence of necrosis | CPT/HCPCS: 11042; G0463 ==

== ENCOUNTER → 2020-11-18 | Outpatient (CLI) | payer MEDICARE, OTHER | LOC: WOUNDCARE 12:12 | PROVIDERS: ATTEND Surgery | DX: E11.621 Type 2 diabetes mellitus with foot ulcer (principal); I96 Gangrene, not elsewhere classified; J44.9 Chronic obstructive pulmonary disease, unspecified; L97.512 Non-pressure chronic ulcer of other part of right foot with fat layer exposed; L97.222 Non-pressure chronic ulcer of left calf with fat layer exposed; L97.412 Non-pressure chronic ulcer of right heel and midfoot with fat layer exposed; L95.8 Other vasculitis limited to the skin; E11.42 Type 2 diabetes mellitus with diabetic polyneuropathy; E11.65 Type 2 diabetes mellitus with hyperglycemia; E11.22 Type 2 diabetes mellitus with diabetic chronic kidney disease; N18.30 Chronic kidney disease, stage 3 unspecified | CPT/HCPCS: 11042 ==

== ENCOUNTER → 2020-12-09 | Outpatient (CLI) | payer MEDICARE, OTHER ==
[~2020-12-09] MED LIST changes: -ALEN70TA69 PO; +ALEN70TA80 PO
== END ==
LOC: WOUNDCARE 08:17
PROVIDERS: ATTEND Surgery
DX: E11.52 Type 2 diabetes mellitus with diabetic peripheral angiopathy with gangrene (principal); E11.65 Type 2 diabetes mellitus with hyperglycemia; E11.22 Type 2 diabetes mellitus with diabetic chronic kidney disease; I96 Gangrene, not elsewhere classified; L97.222 Non-pressure chronic ulcer of left calf with fat layer exposed; J44.9 Chronic obstructive pulmonary disease, unspecified; L95.8 Other vasculitis limited to the skin; N18.32 Chronic kidney disease, stage 3b
CPT/HCPCS: 11042; G0463; 99212

== ENCOUNTER → 2020-12-23 | Outpatient (CLI) | payer MEDICARE, OTHER | LOC: WOUNDCARE 08:24 | PROVIDERS: ATTEND Surgery | DX: L97.222 Non-pressure chronic ulcer of left calf with fat layer exposed (principal); I87.332 Chronic venous hypertension (idiopathic) with ulcer and inflammation of left lower extremity; L95.9 Vasculitis limited to the skin, unspecified; J44.9 Chronic obstructive pulmonary disease, unspecified; E11.65 Type 2 diabetes mellitus with hyperglycemia; E11.22 Type 2 diabetes mellitus with diabetic chronic kidney disease; N18.31 Chronic kidney disease, stage 3a | CPT/HCPCS: 11042; A6253; G0463 ==

== ENCOUNTER → 2020-12-30 | Outpatient (CLI) | payer MEDICARE, OTHER | LOC: WOUNDCARE 08:52 | PROVIDERS: ATTEND Surgery | DX: I87.332 Chronic venous hypertension (idiopathic) with ulcer and inflammation of left lower extremity (principal); L97.222 Non-pressure chronic ulcer of left calf with fat layer exposed; L95.8 Other vasculitis limited to the skin; E11.65 Type 2 diabetes mellitus with hyperglycemia; E11.22 Type 2 diabetes mellitus with diabetic chronic kidney disease; N18.31 Chronic kidney disease, stage 3a | CPT/HCPCS: 99212 ==

== ENCOUNTER → 2021-05-08 | Outpatient (CLI) | payer MEDICARE, OTHER ==
[~2021-05-08] MED LIST changes: +CALC600T91 PO; +CHOL-34 PO; -CHOL10002 PO; -LISI-556 PO; +LISI-729 PO; +MIRT-68 PO; -MIRT15TA6 PO; +MONT10TA32 PO; -MONT10TA97 PO; +NAPR-1088 PO; -NAPR250T6 PO; +QUET25TA34 PO; -QUET25TA73 PO; -[UNRECOGNIZED DRUG - CODE] PO
== END ==
LOC: WOUNDCARE 09:26
PROVIDERS: ATTEND Surgery
DX: E11.622 Type 2 diabetes mellitus with other skin ulcer (principal); I87.332 Chronic venous hypertension (idiopathic) with ulcer and inflammation of left lower extremity; I89.0 Lymphedema, not elsewhere classified; L97.222 Non-pressure chronic ulcer of left calf with fat layer exposed; J44.9 Chronic obstructive pulmonary disease, unspecified; E66.01 Morbid (severe) obesity due to excess calories
CPT/HCPCS: 11042; G0463

== ENCOUNTER → 2021-05-13 | Outpatient (CLI) | payer MEDICARE, OTHER | LOC: WOUNDCARE 09:24 | PROVIDERS: ATTEND Surgery | DX: E11.622 Type 2 diabetes mellitus with other skin ulcer (principal); I87.332 Chronic venous hypertension (idiopathic) with ulcer and inflammation of left lower extremity; I89.0 Lymphedema, not elsewhere classified; L97.222 Non-pressure chronic ulcer of left calf with fat layer exposed; J44.9 Chronic obstructive pulmonary disease, unspecified; E66.01 Morbid (severe) obesity due to excess calories; E11.52 Type 2 diabetes mellitus with diabetic peripheral angiopathy with gangrene | CPT/HCPCS: 99213 ==

== ENCOUNTER → 2021-05-20 | Outpatient (CLI) | payer MEDICARE, OTHER | LOC: WOUNDCARE 10:36 | PROVIDERS: ATTEND Surgery | DX: E11.622 Type 2 diabetes mellitus with other skin ulcer (principal); I87.332 Chronic venous hypertension (idiopathic) with ulcer and inflammation of left lower extremity; I89.0 Lymphedema, not elsewhere classified; L97.222 Non-pressure chronic ulcer of left calf with fat layer exposed; J44.9 Chronic obstructive pulmonary disease, unspecified; E66.01 Morbid (severe) obesity due to excess calories; E11.52 Type 2 diabetes mellitus with diabetic peripheral angiopathy with gangrene | CPT/HCPCS: 11042; G0463 ==

== ENCOUNTER → 2021-06-03 | Outpatient (CLI) | payer MEDICARE, OTHER | LOC: WOUNDCARE 08:18 | PROVIDERS: ATTEND Surgery | DX: M14.672 Charcot's joint, left ankle and foot (principal); E11.621 Type 2 diabetes mellitus with foot ulcer; I87.332 Chronic venous hypertension (idiopathic) with ulcer and inflammation of left lower extremity; I89.0 Lymphedema, not elsewhere classified; L97.222 Non-pressure chronic ulcer of left calf with fat layer exposed; J44.9 Chronic obstructive pulmonary disease, unspecified; E66.01 Morbid (severe) obesity due to excess calories; E11.52 Type 2 diabetes mellitus with diabetic peripheral angiopathy with gangrene | CPT/HCPCS: 11042; G0463 ==

== ENCOUNTER → 2021-06-03 | Outpatient (CLI) | payer MEDICARE, OTHER ==
--- NOTE | 2021-06-03 09:46 | Diagnostic Imaging Report ---
INDICATION: Charcot joint. FINDINGS: The left ankle is grossly normal. There are degenerative changes. No fracture or dislocation. Mild soft tissue swelling. IMPRESSION: Mild degenerative changes otherwise unremarkable. Dictated by: Dictated on workstation # [id number]
== END ==
LOC: RAD 09:22
PROVIDERS: ATTEND Surgery
DX: M19.072 Primary osteoarthritis, left ankle and foot (principal)
CPT/HCPCS: 73600

== ENCOUNTER → 2021-06-10 | Outpatient (CLI) | payer MEDICARE, OTHER | LOC: WOUNDCARE 08:16 | PROVIDERS: ATTEND Surgery | DX: M14.672 Charcot's joint, left ankle and foot (principal); E11.622 Type 2 diabetes mellitus with other skin ulcer; I87.332 Chronic venous hypertension (idiopathic) with ulcer and inflammation of left lower extremity; L97.222 Non-pressure chronic ulcer of left calf with fat layer exposed; I89.0 Lymphedema, not elsewhere classified; J44.9 Chronic obstructive pulmonary disease, unspecified; E66.01 Morbid (severe) obesity due to excess calories; E11.52 Type 2 diabetes mellitus with diabetic peripheral angiopathy with gangrene | CPT/HCPCS: 11042; G0463 ==

== ENCOUNTER → 2021-07-30 | Outpatient (CLI) | payer MEDICARE, OTHER | LOC: WOUNDCARE 10:14 | PROVIDERS: ATTEND Surgery | DX: E11.622 Type 2 diabetes mellitus with other skin ulcer (principal); I96 Gangrene, not elsewhere classified; I87.332 Chronic venous hypertension (idiopathic) with ulcer and inflammation of left lower extremity; L97.224 Non-pressure chronic ulcer of left calf with necrosis of bone; I89.0 Lymphedema, not elsewhere classified; J44.9 Chronic obstructive pulmonary disease, unspecified; E66.01 Morbid (severe) obesity due to excess calories; Z68.27 Body mass index [BMI] 27.0-27.9, adult | CPT/HCPCS: 99213 ==